=== PATIENT | male | born 1975 | race Caucasian/White ===

== ENCOUNTER → 2018-08-06 09:41 | Outpatient (CLI) | payer OTHER, SELFPAY ==
--- NOTE | 2018-08-06 09:51 | XR_ITS ---
EXAM: XR cervical spine 5V HISTORY: ITS.REASON: CERVICALGIA, NUMBNESS OF UPPER EXTREMITY ORDERING PHYSICIAN: Katy Maldonado APRN PATIENT AGE: 43 years COMPARISON: None FINDINGS: Normal alignment. No fracture or dislocation. No lytic or blastic change. No significant degenerative change. The disc spaces are preserved. No foraminal narrowing. No cervical ribs. No prevertebral soft tissue swelling IMPRESSION: Negative cervical spine
--- NOTE | 2018-08-06 09:51 | XR_ITS ---
EXAM: XR lumbar spine min 4V HISTORY: ITS.REASON: ACUTE RT SIDE LBP W/ SCIATICA ORDERING PHYSICIAN: Katy Maldonado APRN PATIENT AGE: 43 years COMPARISON: None FINDINGS: Normal alignment. No fracture or dislocation. No lytic or blastic change. There is mild degenerative disc disease at L1-L2. Minimal nature osteophyte formation is present at L4 and L5. IMPRESSION: Mild degenerative changes, no acute finding
== END ==
PROVIDERS: PCP Nurse Practitioner Family; Visit Provider Nurse Practitioner Family
DX: M54.41 Lumbago with sciatica, right side (principal); M54.2 Cervicalgia; R20.0 Anesthesia of skin
CPT/HCPCS: 72050; 72110

== ENCOUNTER → 2018-09-28 13:16 | Outpatient (POV) | payer OTHER, SELFPAY | PROVIDERS: Visit Provider Specialist | DX: R20.0 Anesthesia of skin (principal); R20.2 Paresthesia of skin | CPT/HCPCS: 95886; 95909 ==

== ENCOUNTER → 2019-08-12 08:32 | Outpatient (CLI) | payer OTHER, SELFPAY ==
--- NOTE | 2019-08-12 08:46 | US_ITS ---
PROCEDURE: US LIVER CLINICAL INDICATION: ELEVATED LIVER ENZYMES COMPARISON: No exams were available for comparison FINDINGS: PANCREAS: The pancreas is poorly delineated at the pancreatic tail region. Otherwise unremarkable. LIVER: No focal liver lesions demonstrated. Homogeneous echogenicity. No intrahepatic biliary ductal dilatation evident. There is appropriate direction of blood flow within a non dilated portal vein. There is slight increased echogenicity of the liver which could be due to mild fatty infiltration. RIGHT KIDNEY: Unremarkable. Normal size and echogenicity. No hydronephrosis GALLBLADDER: No gallstones, gallbladder wall thickening, pericholecystic fluid, or biliary dilatation. IMPRESSION: Mild fatty liver otherwise negative Dictated by: Felipe Smith MD 08/12/2019 13:26 Electronically signed by Felipe Smith MD in [place] 08/12/2019 13:26
== END ==
PROVIDERS: PCP Family Medicine; Visit Provider Nurse Practitioner Family
DX: R74.8 Abnormal levels of other serum enzymes (principal)
CPT/HCPCS: 76705

== ENCOUNTER 2020-08-13 13:50 | Emergency (ER) | payer OTHER, SELFPAY ==
[2020-08-13 13:51] VITALS: BP 141/98; PULSE 100; RESP 16; TEMP 36.8; O2SAT 99; BMI 31.5
[2020-08-13 14:15] VITALS: BP 137/88; PULSE 96; O2SAT 96
--- NOTE | 2020-08-13 14:31 | PC.NURSE ---
at bedside to suture
[2020-08-13 14:44] VITALS: BP 137/88; PULSE 93; O2SAT 97
--- NOTE | 2020-08-13 14:44 | HMH.EDWNDL ---
ED Disposition Clinical Impression: Laceration of left leg excluding thigh Qualifiers: Encounter type: initial encounter Qualified Code(s): S81.812A - Laceration without foreign body, left lower leg, initial encounter Disposition: Home, Self-Care Condition on Discharge: Good Instructions: DI for Laceration Repair Referrals: Cal Randolph MD [Primary Care Provider] - - Critical Care Critical Care Time: No Attestation: On 08/13/20, the high probability of a clinically significant, sudden or life threatening deterioration of the following system(s) required my full and direct attention, intervention and personal management. The time I documented below is in addition to time spent performing reported procedures but includes the following listed in this critical care notation. Medical Decision Making - Medical Records Medical records reviewed: Yes: I reviewed the patient's medical records. - Balwinder Inquiry Pt receiving controlled substance: No Vital Signs: 08/13/20 13:51 08/13/20 14:15 Temperature 98.3 F Temperature Source Oral Pulse Rate 96 H Pulse Rate [Right] 100 H Respiratory Rate 16 Blood Pressure 137/88 Blood Pressure [Right Arm] 141/98 H Blood Pressure Mean [Right Arm] 112 02 Sat by Pulse Oximetry 99 96 - Reevaluation(s) Time: 14:47 Reevaluation #1: Patient tolerated procedure well. Patient was given strict return precautions. Verbalized understanding. Medical Decision Narrative: 45-year-old male presented to the emergency department with a laceration of the left leg. Patient will require suture repair. Tetanus up-to-date. Wound/Laceration HPI - General Chief Complaint: Wound/Laceration Stated Complaint: ao 08/13/20 @ 1330 lac to Lt leg Time Seen by Provider: 08/13/20 13:55 Mode of Arrival: Family Vehicle Limitations: No Limitations Description of Symptoms (Recalled from ER Triage Doc. by RN): PT REPORTS HE TRIPPED INTO A METAL ANGLE WIRE, AND CAUSED A LACERATION TO HIS LEFT [place]. BLEEDING CONTROLLED PRIOR TO ARRIVAL. UPON ASSESSMENT, PT HAS DISTAL PEDAL PULSES AND CAP REFILL LESS THAN 2 SECONDS DISTAL TO INJURY. PT AMBULATORY IN ED TRIAGE. PT REPORTS TETANUS SHOT 3 MONTHS AGO. PT DENIES BEING ON ANTICOUGULANTS - History of Present Illness HPI narrative: This is a 45-year-old male presented to the emergency department with a laceration to his left lower leg. Patient states that he tripped and hit a angle wire. The patient has a clean laceration to the left lower extremity at the mid lower leg. There is no active bleeding at this time. Patient is up-to-date on tetanus immunization. Is complaining of some minimal pain. No others injuries were sustained. Patient denies any headache or change in vision. No focal weakness. No chest pain or shortness of breath and abdominal pain or vomiting. [facility] History - Hepatitis A Screen Drug use history?: No High risk sexual behaviors?: No History of sexually transmitted infection?: No Currently employed?: No Childcare worker?: No Do you have indoor plumbing?: Yes Do you have electricity?: Yes Attestation statement:: This patient has been screened for Hepatitis A risk factors. I have reviewed the patient's past medical history: Yes ROS Obtained: Yes All systems reviewed & no additional complaints - Constitutional Constitutional: Denies chills, Denies fever(s) - Cardiovascular Cardiovascular: Denies chest pain - Respiratory Respiratory: Denies dyspnea - Gastrointestinal Gastrointestingal: Denies: vomiting - Musculoskeletal Musculoskeletal: Denies joint pain, Reports other (laceration to left leg) - Neurologic Neurologic: Denies headache(s) Physical Exam - General General appearance: alert, in no apparent distress - Respiratory Respiratory exam: Present: normal lung sounds bilaterally. Absent: respiratory distress - Cardiovascular Cardiovascular exam: Present: regular rate. Absent: normal rhythm - Ab
[2020-08-13 15:02] VITALS: BP 137/88; PULSE 93; RESP 18; TEMP 36.8; O2SAT 97
== END 2020-08-13 15:05 | disposition home or self-care (01) ==
PROVIDERS: Emergency Provider Emergency Medicine; PCP Family Medicine
DX: S81.812A Laceration without foreign body, left lower leg, initial encounter (principal); W01.198A Fall on same level from slipping, tripping and stumbling with subsequent striking against other object, initial encounter; Y92.9 Unspecified place or not applicable
CPT/HCPCS: 12002; 99282

== ENCOUNTER → 2021-04-11 07:46 | Outpatient (CLI) | payer OTHER, SELFPAY ==
[2021-04-11 08:57] VITALS: BP 150/86; PULSE 90; RESP 16; O2SAT 97
[2021-04-11 09:12] VITALS: BP 134/83; PULSE 84; RESP 16; O2SAT 97
== END ==
PROVIDERS: PCP Family Medicine; Visit Provider Family Medicine
DX: U07.1 COVID-19 (principal); Z23 Encounter for immunization
CPT/HCPCS: 96365

== ENCOUNTER 2022-04-08 09:03 | Emergency (ER) | payer OTHER, SELFPAY ==
--- NOTE | 2022-04-08 09:58 | EXP.UTC ---
Discharge Plan Disposition Patient Disposition: Home, Self-Care Condition: Good Prescriptions Prescriptions: New azithromycin [Zithromax] 250 mg tablet 250 mg PO UD DOSE PK Qty: 6 0RF Rx Instructions: Take two (2) tablets today, then one (1) tablet days #2 thru #5 benzonatate [benzonatate] 100 mg capsule 100 mg PO TIDP PRN (Reason: Cough) Qty: 30 0RF methylprednisolone 4 mg Tablets,Dose Pack 4 mg PO DIRECTED Qty: 21 0RF Referrals Follow up/Referrals: Katy Maldonado APRN [Primary Care Provider] - See instructions Activity Restrictions/Add. Instructions Additional Instructions/Restrictions: Drink plenty of fluids. Take tylenol or ibuprofen for pain or fever. Take the medications as directed. Follow up with your regular doctor. GO TO THE ER FOR ANY WORSENING SYMPTOMS Clinical Impressions Clinical Impression: Sinusitis, Bronchitis, Acute viral syndrome Instructions Patient Instructions: DI for Sinusitis, DI for Acute Bronchitis Discharge ED Provider: Angel Farnsworth [facility] General Stated complaint: Bodyaches,fever Time Seen by Provider: 04/08/22 09:58 History of Present Illness Provider Complaint: He states that for the past 1 day he has had sinus congestion, body aches, chills, and fever. He has a productive cough. Related Data Previous Rx's Medication Instructions Recorded azithromycin 250 mg tablet 250 mg PO UD DOSE PK #6 tabs 04/08/22 (Zithromax) benzonatate 100 mg capsule 100 mg PO TIDP PRN Cough #30 caps 04/08/22 methylprednisolone 4 mg tablets in 4 mg PO DIRECTED #21 tabs 04/08/22 a dose pack Allergies Allergy/AdvReac Type Severity Reaction Status Date / Time No Known Allergies Allergy Verified 04/08/22 10:01 [facility] Disclaimer: The information contained in this section may have been updated after the patient was seen, as this information can be updated by other users. Social History Smoking Status: Never smoker alcohol intake: never current occupational status: employed Travel in the last 8 weeks: None ROS Obtained: Yes All systems reviewed & no additional complaints except as documented Constitutional Constitutional: Reports chills and Reports fever(s) Eyes Eyes: Denies eye discharge ENT Ears, Nose, Mouth, and Throat: Reports as per HPI Cardiovascular Cardiovascular: Denies chest pain Respiratory Respiratory: Denies chest congestion and Reports cough Gastrointestinal Gastrointestingal: Reports nausea; Denies abdominal pain, constipation, cramping, diarrhea or vomiting Musculoskeletal Musculoskeletal: Denies arthralgias Integumentary/Breasts Skin/Breast: Denies rash Neurologic Neurologic: Denies paresthesias Physical Exam General General appearance: alert and in no apparent distress Head Head exam: atraumatic, normocephalic and normal inspection Eye Eye exam: Present normal appearance, PERRL and EOMI ENT ENT exam: Present normal exam, normal oropharynx, mucous membranes moist, TM's normal bilaterally and normal external ear exam Neck Neck exam: Present normal inspection, full ROM and trachea midline; Absent meningismus or lymphadenopathy Chest Chest inspection: Present normal inspection and symmetric chest wall rise; Absent tenderness Respiratory Respiratory exam: Present normal lung sounds bilaterally; Absent respiratory distress Cardiovascular Cardiovascular exam: Present regular rate and normal rhythm; Absent JVD Abdominal Exam Abdominal exam: Present soft and normal bowel sounds; Absent distention, tenderness or guarding Extremities Exam Extremities exam: Present normal inspection, full ROM and normal capillary refill; Absent calf tenderness Back Exam Back exam: Present normal inspection; Absent tenderness Neurological Exam Neurological exam: Present alert and oriented X3 Psychiatric Psychiatric exam: Present normal affect and normal mood Skin Skin exam: Pres
[2022-04-08 09:59] VITALS: BP 148/89; PULSE 107; RESP 16; TEMP 36.7; O2SAT 98; BMI 32.1
[2022-04-08 10:06] LABS: UTC Influenza A Antigen Negative (Negative); UTC Influenza B Antigen Negative (Negative)
[2022-04-08 10:32] VITALS: BP 148/89; PULSE 107; RESP 16; TEMP 36.7
[2022-04-08 10:42] LABS: Adenovirus,PCR Not Detected (NotDetected); Bordetella Pertussis Not Detected (NotDetected); Chlamydophila Pneumoniae, PCR Not Detected (NotDetected); Coronavirus 229E Not Detected (NotDetected); Coronavirus NL63 Not Detected (NotDetected); Coronavirus OC43 Not Detected (NotDetected); Coronovirus HKU1,PCR Not Detected (NotDetected); Human Metapneumovirus Not Detected (NotDetected); Influenza A, PCR Not Detected (NotDetected); Influenza AH1, 2009 Not Detected (NotDetected); Influenza AH1, PCR Not Detected (NotDetected); Influenza AH3,PCR Not Detected (NotDetected); Influenza B, PCR Not Detected (NotDetected); Mycoplasma Pneumoniae, PCR Not Detected (NotDetected); Parainfluenza 1, PCR Not Detected (NotDetected); Parainfluenza 2, PCR Not Detected (NotDetected); Parainfluenza 3, PCR Not Detected (NotDetected); Parainfluenza 4, PCR Not Detected (NotDetected); Respiratory Syncytial Virus Not Detected (NotDetected); Rhinovirus/Enterovirus Not Detected (NotDetected)
[2022-04-08 12:25] LABS: Coronavirus 19, PCR Detected (NotDetected)
== END 2022-04-08 10:33 | disposition home or self-care (01) ==
PROVIDERS: Emergency Provider Nurse Practitioner Family; PCP Nurse Practitioner Family
DX: J40 Bronchitis, not specified as acute or chronic (principal); J32.9 Chronic sinusitis, unspecified; B34.9 Viral infection, unspecified
CPT/HCPCS: 87581; 87632; 87798; 87804; 99212; C9803; G0463; U0003; U0005

== ENCOUNTER → 2023-02-13 12:40 | Outpatient (CLI) | payer OTHER, SELFPAY ==
--- NOTE | 2023-02-13 12:41 | US_ITS ---
FINAL REPORT CLINICAL HISTORY: hernia COMPARISON: None FINDINGS: Sonographic images were obtained of the soft tissues of the left inguinal region. There are several borderline size left inguinal lymph nodes which are likely reactive. There is a left inguinal hernia containing bowel. IMPRESSION: Left inguinal hernia containing bowel. Several borderline size left inguinal lymph nodes, likely reactive. Reviewed, Interpreted and Dictated by Jhonatan Moore III, MD Transcribed by Trinidad Mckeon Authenticated and [facility]
--- NOTE | 2023-02-13 13:15 | US_ITS ---
FINAL REPORT CLINICAL HISTORY: INGUINAL HERNIA COMPARISON: None FINDINGS: Sonographic images were obtained of the soft tissues of the right inguinal region. There are several borderline size right inguinal lymph nodes which are likely reactive. There is a right inguinal hernia containing bowel. IMPRESSION: Right inguinal hernia containing bowel. Several borderline size right inguinal lymph nodes, likely reactive. Reviewed, Interpreted and Dictated by Jhonatan Moore III, MD Transcribed by Trinidad Mckeon Authenticated and [facility]
== END ==
PROVIDERS: PCP Nurse Practitioner Family; Visit Provider Nurse Practitioner Family
DX: R10.31 Right lower quadrant pain (principal); K40.90 Unilateral inguinal hernia, without obstruction or gangrene, not specified as recurrent
CPT/HCPCS: 76882

== ENCOUNTER → 2023-03-25 11:34 | Outpatient (CLI) | payer OTHER, SELFPAY ==
[2023-03-25 11:46] LABS: Microscopic, Urine URINE MICROSCOPIC (MICROSCOPIC)
--- NOTE | 2023-03-25 11:46 | ECG_ITS ---
APPROVED REPORT Exam: Resting ECG HR:59 bpm ECG Measurements Heart Rate 59 AXES MT 146 P 23 QRSd 84 QRS 51 QT 383 T 31 QTc 382 Conclusion SINUS BRADYCARDIA BORDERLINE ECG UNCONFIRMED REPORT Electronically signed by : Cal Bernal MD 03/25/2023 16:51:16
[2023-03-25 12:07] LABS: Basophils % 0.5 % (0.1-2.0); Eosinophils # 0.2 K/mm3 (0.0-0.4); Eosinophils % 2.5 % (0.1-12.0); Hematocrit 48.7 % (42.0-52.0); Hemoglobin 16.8 g/dL (14.1-18.0); Lymphocytes # 2.2 K/mm3 (0.7-4.5); Lymphocytes % 36.8 % (10-50); Mean Corpuscular HGB Conc 34.5 g/dL (31.8-35.4); Mean Corpuscular Hemoglobin 32.6 pg (27.0-31.2); Mean Corpuscular Volume 94.3 fl (80-94); Mean Platelet Volume 7.9 fl (7.4-10.4); Monocytes # 0.4 K/mm3 (0.1-1.0); Monocytes % 6.3 % (1.7-9.3); Neutrophils # 3.2 K/mm3 (1.8-7.8); Neutrophils % 53.9 % (37.0-80.0); Platelet Count 295 K/mm3 (142-424); Red Blood Count 5.16 M/mm3 (4.60-6.20); Red Cell Distribution Width 13.4 % (11.5-17.5); White Blood Count 5.9 K/mm3 (4.8-10.8)
[2023-03-25 12:08] LABS: Appearance,Urine CLEAR (Clear); Bilirubin,Urine Negative (Negative); Blood, Urine Negative (Negative); Color,Urine YELLOW (Yellow); Glucose,Urine (UA) Negative (Negative); Ketones,Urine Negative (Negative); Leukocyte Esterase,Urine Negative (Negative); Nitrate,Urine Negative (Negative); Protein,Urine Negative (Negative); Specific Gravity, Urine 1.025 (1.005-1.030); Urobilinogen,Urine 0.2 EU/dl (0.2)
[2023-03-25 12:21] LABS: Squamous Epithelial Cell,Urine Occasional #/hpf (0-5)
[2023-03-25 12:39] LABS: Chloride 105 mmol/L (98-107); Potassium 4.5 mmoL/L (3.5-5.1); Sodium 139 mmol/L (136-145)
[2023-03-25 12:42] LABS: Blood Urea Nitrogen 22 mg/dl (9-20); Estimated Glomerular Filt Rate 80 ml/min (>60); GFR (African American) 97 ML/MIN (>60)
[2023-03-25 12:43] LABS: Anion Gap 9.5 mEq/L (5-15); Carbon Dioxide 29 mmol/L (22.0-30.0); Glucose 94 mg/dl (74-100)
== END ==
PROVIDERS: PCP Nurse Practitioner Family; Visit Provider Surgery
DX: Z01.818 Encounter for other preprocedural examination (principal); K40.90 Unilateral inguinal hernia, without obstruction or gangrene, not specified as recurrent
CPT/HCPCS: 36415; 80048; 81001; 85025; 93005

== ENCOUNTER 2023-04-03 06:07 | Day surgery (SDC) | payer OTHER, SELFPAY ==
[2023-03-31 13:32] VITALS: BMI 30.7
[2023-04-03] VITALS (11 sets, daily range): BP systolic 110–135; BP diastolic 61–76; PULSE 68–83; RESP 16–18; TEMP 36.2–36.7; O2SAT 91–98
[2023-04-03] MEDS: LACTATED RINGERS 1000ML 1,000 ML 100 ML IV (06:35)
[2023-04-03] MEDS: CEFAZOLIN SODIUM 2 GM in 0.9 % SODIUM CHLORIDE 100 ML IV (07:25)
[2023-04-03] MEDS: LIDOCAINE 1% 30ML PF VIAL 30 ML (07:27)
--- NOTE | 2023-04-03 07:32 | P.PNANES_ITS ---
[facility] Disclaimer: The information contained in this section may have been updated after the patient was seen, as this information can be updated by other users. Medical History Acute viral syndrome Arthritis Bronchitis Fatty liver Laceration of left leg excluding thigh Muscle spasm Sinusitis Surgical History H/O vasectomy S/P scrotal varicocelectomy Family History Father Cancer Mother CHF (congestive heart failure) Other Family history of diabetes mellitus type I Family history of diabetes mellitus type II Social History Smoking Status: Former smoker years smoked: 30 alcohol intake: current substance use type: denies use current occupational status: employed Travel in the last 8 weeks: None [facility] Anesthesia Checklist Patient Identification Patient Identification: Arm Band Structural Data Admitted From: Home Planned Operative Procedure/s: Left Open Inguinal Hernia Repair Consent for Planned Operative Procedure(s) Verified: Yes Verified Documents: Surgical Consent and History and Physical NPO Status Verified Time NPO: 00:00 Additional verifications Anesthesia Reactions: No Hx Blood Transfusions: No Blood Transfusion Reaction: No Airway Assessment Mallampati Score:: Class II C-Spine Mobility Assessed: Yes TMJ Mobility Assessed: Yes Dentition: Good Dentition Neurological Assessment Level of Consciousness: Awake and Alert Anesthesia Plan Anesthesia Risk discussed: Yes Anesthesia Plan: Verified ASA Class: II Anesthesia Type: General
--- NOTE | 2023-04-03 08:58 | EXP.OP.NOTE ---
Date of procedure: 04/03/23 Pre-op Diagnosis:: Right inguinal hernia Post-op Diagnosis:: Same Procedure performed:: Open right inguinal hernia Surgeon:: Lewis Szymanski MD TRANSFER CAR OPERATOR DRIER:: Shaun Crespo Anesthesia: CHERY Estimated blood loss (mL): 15 Operative findings:: Complex indirect defect Fairly severe soft tissue stranding throughout canal Operative note:: After informed consent was obtained the patient was taken to the operating room and placed in the supine position. General anesthesia was induced and his abdomen was prepped and draped in a sterile fashion. After infiltration with local anesthetic an oblique right groin incision was made. Electrocautery was utilized to transect through Gary's fascia to the level of the external aponeurosis. The external aponeurosis was sharply opened to the level of the external ring. The contents of the canal were carefully elevated. Severe soft tissue stranding noted throughout. A fairly large complex indirect defect was encountered. A thin-wall hernia sac was dissected free from surrounding tissue. An extra-large PerFix plug was secured in position with interrupted Ethibond. The PerFix overlay was then secured to the shelving edge inferiorly and fascial margin superiorly with interrupted Ethibond. The external aponeurosis was reapproximated with running Vicryl suture. Gary's fascia was reapproximated in a similar manner. Skin was then closed with running 3-0 Monocryl STRATAFIX. Dressings were applied and the patient was transferred to recovery in stable condition. Condition: stable Disposition: PACU Specimens:: none Complications:: No immediate
--- NOTE | 2023-04-03 09:06 | P.PNANES_ITS ---
[facility] Anesthesia Record Part I Anesthesia Record I Intake, IV Amount: 1,400 Hydration: Adequate Estimated blood loss (mL): 10 Urine output (mL): 100 Blood Products used (#): none Blood Pressure: 135/75 SaO2: 91 Pulse Rate: 83 Airway Patency: Patent Respiratory Rate: 16 Temperature: 98 F Patient is:: Drowsy and Stable Stable to PACU at:: 09:00
--- NOTE | 2023-04-03 09:33 | SUR.PHASEI ---
0930- detailed report given to danis roy in post op 0931- pt left in stable condition with danis fernandez in post op. VSS, dressings cdi
--- NOTE | 2023-04-03 13:53 | EXP.ANES.II ---
[facility] Anesthesia Record Part II Anesthesia Record Part II Discharge Time: 09:30 Destination: Surgical Day Care (OP Surgery) PACU nurse assessment reviewed?: Yes Patient Condition:: Good Anesthesia Complications:: None Swallowing reflex intact?: Yes Airway Patency: Patent Cyanosis?: No Blood Pressure: 127/76 SaO2: 95 Respiratory Rate: 16 Pulse Rate: 80 Temperature: 97.4 F Mental Status: Alert & Oriented Pain level:: 0 Nausea and/or vomitting:: None Intake, IV Amount: 0 Hydration: Adequate
== END 2023-04-03 10:07 | disposition home or self-care (01) ==
PROVIDERS: PCP Nurse Practitioner Family; Visit Provider Surgery
PROC: (CPT 49505; principal; 2023-04-03 07:30)
DX: K40.90 Unilateral inguinal hernia, without obstruction or gangrene, not specified as recurrent (principal)
CPT/HCPCS: 49505; 96374; J2405

== ENCOUNTER 2023-10-14 10:32 | Outpatient (CLI) | payer OTHER, SELFPAY ==
--- NOTE | 2023-10-14 10:35 | XR_ITS ---
FINAL REPORT CLINICAL HISTORY: low back pain FINDINGS: LUMBAR SPINE Three views demonstrate no acute fracture. There are mild degenerative changes with osteophytes. There is no malalignment. IMPRESSION: No acute process. Reviewed, Interpreted and Dictated by Jhonatan Moore III, MD Transcribed by Michelle Barrera Authenticated and [facility]
[2023-10-14 13:18] LABS: Basophils % 0.6 % (0.1-2.0); Eosinophils # 0.1 K/mm3 (0.0-0.4); Eosinophils % 2.1 % (0.1-12.0); Hematocrit 49.1 % (42.0-52.0); Hemoglobin 16.1 g/dL (14.1-18.0); Lymphocytes # 1.6 K/mm3 (0.7-4.5); Lymphocytes % 23.8 % (10-50); Mean Corpuscular HGB Conc 32.8 g/dL (31.8-35.4); Mean Corpuscular Hemoglobin 32.1 pg (27.0-31.2); Mean Corpuscular Volume 97.8 fl (80-94); Monocytes # 0.4 K/mm3 (0.1-1.0); Monocytes % 6.2 % (1.7-9.3); Neutrophils # 4.6 K/mm3 (1.8-7.8); Neutrophils % 67.4 % (37.0-80.0); Platelet Count 298 K/mm3 (142-424); Red Blood Count 5.02 M/mm3 (4.60-6.20); Red Cell Distribution Width 14.1 % (11.5-17.5); White Blood Count 6.8 K/mm3 (4.8-10.8)
[2023-10-14 13:39] LABS: Alanine Aminotransferase 74 U/L (12-78); Albumin Level 4.8 g/dl (3.5-5.0); Albumin/Globulin Ratio 1.9 (1.1-1.8); Alkaline Phosphatase 84 U/L (38-126); Aspartate Amino Transferase 48 U/L (17-59); Bilirubin,Total 1.7 mg/dl (0.2-1.3); Blood Urea Nitrogen 24 mg/dl (9-20); Calcium 9.9 mg/dl (8.4-10.2); Carbon Dioxide 30 mmol/L (22.0-30.0); Chloride 107 mmol/L (98-107); Estimated Glomerular Filt Rate 90 ml/min (>60); GFR (African American) 109 ML/MIN (>60); Globulin 2.5 g/dL (1.3-3.2); Glucose 77 mg/dl (74-100); Sodium 139 mmol/L (136-145); Total Protein,Serum 7.3 g/dl (6.3-8.2)
[2023-10-14 14:08] LABS: Prostate Specific Ag Screen 0.5 ng/ml (0.0-4.0)
[2023-10-14 15:04] LABS: Anion Gap 7.2 mEq/L (5-15); Potassium 5.2 mmoL/L (3.5-5.1)
== END 2023-10-14 23:59 | disposition home or self-care (01) ==
LOC: LAB.DROPOF 10:33
PROVIDERS: PCP Nurse Practitioner Family; Visit Provider Nurse Practitioner Family
DX: M54.50 Low back pain, unspecified (principal); Z12.5 Encounter for screening for malignant neoplasm of prostate
CPT/HCPCS: 72100; 80053; 85025; G0103

== ENCOUNTER 2023-11-14 11:24 | Outpatient (CLI) | payer OTHER, SELFPAY ==
[2023-11-14 11:31] VITALS: BMI 29.2
--- NOTE | 2023-11-14 11:35 | PC.NURSE ---
1135-collected labs via venipuncture stick with butterfly needle for possible therapeutic phlebotomy if hgb>12 and ferritin > 150
[2023-11-14 11:54] LABS: Hematocrit 43.9 % (42.0-52.0); Hemoglobin 14.7 g/dL (14.1-18.0)
[2023-11-14 12:32] LABS: Ferritin 362 ng/ml (17.9-464)
[2023-11-14 12:42] VITALS: BP 132/82; PULSE 74; RESP 18; O2SAT 96
[2023-11-14 13:00] VITALS: BP 144/86; PULSE 78; RESP 18; O2SAT 96
== END 2023-11-14 13:00 | disposition home or self-care (01) ==
LOC: INF 11:25
PROVIDERS: PCP Nurse Practitioner Family
DX: E83.110 Hereditary hemochromatosis (principal)
CPT/HCPCS: 36415; 82728; 85014; 85018; 99195

== ENCOUNTER 2023-11-14 16:00 | Outpatient (RCR) | payer OTHER, SELFPAY ==
--- NOTE | 2023-10-27 17:04 | HMH.PTOPEV ---
PT Outpatient Evaluation Rehab PT Outpatient Evaluation Start: 10/27/23 15:14 Freq: Status: Active Protocol: Document 10/27/23 16:06 GABINO (Rec: 10/27/23 17:04 GABINO [id number]) E-signed By Melvin Fox, PT Outpatient Therapy Subjective History Subjective History Patient Alicja Ewing is a 48 year old male presenting today at PT with the chief compliant of LBP, his back pain comes and goes depending upon activities and the day. Patient recently had imaging done on () which was consistent with no fx but there are mild degenerative changes with osteophytes noted . His job varies from time to time and can be demanding on his body. His pain is normally worse in the morning as he experiences more stiffness. He currently rates his pain at a 0/10, but at worse can reach to a 8/10. Patient does stretch on and off which he said tends to help reduce the stiffness. New diagnosis of cancer in past 12 No months? Chief Complaint Pain,Stiff Symptom Type Ache Symptoms Relieved By Prescription Meds Symptoms Aggravated By Standing,Walking Prior Functional Limitations None Current Functional Limitations Recreation Activity Symptom Description Activity Dependent Level of pain today (0-10) 0 Pain scale - at its best (0-10) 0 Pain scale - at its worst (0-10) 8 Lumbopelvic Eval Posture Thoracic Spine Posture Standing Position Neutral Lumbar Spine Posture Standing Position Neutral Assistive device Assistive Devices None / NA Palapation tenderness left thoracic spinal tenderness No lumbar spinal tenderness Yes paraspinal tenderness Yes buttock tenderness No Range of Motion Lumbar Spine Active Flexion Range of 60 Motion (degrees) Lumbar Spine Active Extension Range of 33 Motion (degrees) Left Lumbar Spine Lateral Flexion Active 35 Range of Motion (degrees) Right Lumbar Spine Lateral Flexion 30 Active Range of Motion (degrees) Lumbar Spine ROM Limitations Soft Tissue Tightness,Pain Manual Muscle Test Bilateral Knee Extension Strength Grade 5 Normal Knee Flexion Strength Grade 5 Normal Hip Flexion Strength Grade 5 Normal Ankle Dorsiflexion Strength Grade 5 Normal Gastronemius/Soleus Strength Grade 5 Normal Special Tests Hip Gurpreet (ALEJANDRO) Test Negative Left,Negative Right Hip Piriformis Test Negative Left,Negative Right Unilateral Straight Leg Raise (Lasegue) Negative Left,Negative Right Test Oswestry Index Section 1 Pain Intensity The pain comes and goes and is moderate Section 2 Personal Care (Washing,Dresing) change my way of washing or dressing in order to avoid pain Section 3 Lifting I can lift heavy weights without extra pain Section 4 Walking I have some pain when walking but it does not increase with distance Section 5 Sitting I can sit in any chair for as long as I like Section 6 Standing I cannot stand more than 1 hour without increasing pain Section 7 Sleeping Because of my pain, my normal night's sleep is less than 6 hours sleep Section 8 Social Life My social life is normal and gives me no extra pain Section 9 Traveling I get some pain when traveling , but none of my usual forms of travel m Section 10 Changing Degreee of Pain My pain is gradually getting worse Score and Risk Level Oswestry Sc 12 Oswestry Risk Level Mild Disability Outpatient Therapy Assessment Impairments Problems/Impairmments Palpation Tenderness,Impaired Walking,Impaired Standing, Impaired Recreational Activities Prognosis Rehab Potential Good Comment Patient is appropriate for skilled PT to address his muscle tightness to promote more appropriate body mechanics to enhance QOL. Short Term Goals Number of Weeks 4 Decreased Palpation Tenderness Yes: decrease pinpoint tenderness L paraspinal Increase Ability to Stand Yes: for 30 min with little to no pain in the lower back Improve Oswestry Score Yes: decrease score from 12 to 6 Decrease Subjective C/O Pain Yes: decrease pain at worst from 8/10 to 6/10 Patient to be Ind w/ HEP Yes Business Systems Technician Goals Number of Weeks 6 Increase Ability to Walk Yes: gradually through walking distances greater than 1 mile with 2/10 pain Improve Oswestry Score Yes: Score <4 Decrease Subjective C/O Pain Yes: decrease pain from 6/10 to 1/10 with recreational activities Improve Self Care/Self Management Yes: through getting an adequate amount of sleep with reduction of AM pain Patient to be Ind w/ Advanced HEP Yes Outpatient Therapy Plan of Care Treatment Plan May Include Therapeutic Exercise Including Home Yes Exercise Program Manual Therapy Techniques Yes Therapeutic Activities to Return to Yes Previous Functional/Work Level ADL/Self Care Education Yes Mechanical Traction Yes Dry Needling Yes Thermal Modalities Yes Electrical Stimulation Yes Ultrasound/Phonophoresis Yes Eval/Re-Eval Yes Frequency Times per week 1-2 Duration Number of Weeks 6 Addendums This patient is a candidate for social No or vocational rehab? Patient/Guardian verbally acknowledges Yes understanding of treatment program and consents to further treatment? Patient/Guardian verbally acknowledges Yes understanding of diagnosis, prognosis and goals for treatment? Eval Complexity PT Charges 05553 - High Complexity Shoulder/Elbow Eval Shoulder Objective Measurements Elbow Objective Measurements PHYSICIAN CERTIFICATION: I certify the specified therapy services for Tad Chaoton II are required, authorized, and reviewed every 30 days.
== END 2023-11-14 16:05 | disposition home or self-care (01) ==
LOC: PT 16:00
PROVIDERS: Visit Provider Nurse Practitioner Family
DX: M54.50 Low back pain, unspecified (principal)
CPT/HCPCS: 97163

== ENCOUNTER 2023-11-28 12:15 | Outpatient (CLI) | payer OTHER, SELFPAY ==
[2023-11-28 12:17] VITALS: BMI 29.2
--- NOTE | 2023-11-28 12:23 | PC.NURSE ---
1223-collected labs via venipuncture stick in left ac with butterfly needle; pt to wait on labs for possible therapeutic phlebotomy if ferritin>150
[2023-11-28 12:29] LABS: Hematocrit 40.5 % (42.0-52.0); Hemoglobin 13.3 g/dL (14.1-18.0)
[2023-11-28 13:20] LABS: Ferritin 260 ng/ml (17.9-464)
[2023-11-28 13:55] VITALS: BP 144/82; PULSE 81; RESP 18; O2SAT 97
[2023-11-28 14:12] VITALS: BP 147/82; PULSE 90; RESP 18; O2SAT 98
== END 2023-11-28 14:12 | disposition home or self-care (01) ==
LOC: INF 12:16
DX: Z12.5 Encounter for screening for malignant neoplasm of prostate (principal)
CPT/HCPCS: 36415; 82728; 85014; 85018; 99195

== ENCOUNTER 2023-12-12 10:37 | Outpatient (CLI) | payer OTHER, SELFPAY ==
[2023-12-12 10:40] VITALS: BMI 29.2
--- NOTE | 2023-12-12 10:43 | PC.NURSE ---
1034-collected labs via venipuncture stick in left ac with butterfly needle;will call pt with results for therapeutic phlebotomy if ferritin >150 and hgb >12
[2023-12-12 10:56] LABS: Hematocrit 42.8 % (42.0-52.0); Hemoglobin 14.1 g/dL (14.1-18.0)
[2023-12-12 11:42] LABS: Ferritin 216 ng/ml (17.9-464)
[2023-12-12 13:59] VITALS: BP 164/102; PULSE 78; RESP 18; O2SAT 98
[2023-12-12 14:22] VITALS: BP 133/81; PULSE 74; RESP 18; O2SAT 98
== END 2023-12-12 14:22 | disposition home or self-care (01) ==
LOC: INF 10:38
PROVIDERS: PCP Nurse Practitioner Family
DX: E83.111 Hemochromatosis due to repeated red blood cell transfusions (principal)
CPT/HCPCS: 36415; 82728; 85014; 85018; 99195

== ENCOUNTER 2023-12-26 13:45 | Outpatient (CLI) | payer OTHER, SELFPAY ==
[2023-12-26 13:49] VITALS: BMI 29.2
--- NOTE | 2023-12-26 13:50 | PC.NURSE ---
danis griffin collected labs via venipuncture stick in left ac with butterfly needle;pt to wait on results for possible therapeutic phlebotomy if ferritin >150 and hgb>12
[2023-12-26 14:02] LABS: Hematocrit 42.8 % (42.0-52.0); Hemoglobin 14.1 g/dL (14.1-18.0)
[2023-12-26 14:43] LABS: Ferritin 229 ng/ml (17.9-464)
[2023-12-26 15:13] VITALS: BP 144/88; PULSE 81; RESP 18; O2SAT 97
[2023-12-26 15:30] VITALS: BP 137/83; PULSE 91; RESP 18; O2SAT 97
== END 2023-12-26 23:59 | disposition home or self-care (01) ==
LOC: INF 13:46
PROVIDERS: PCP Nurse Practitioner Family; Visit Provider Physician Assistant
DX: E83.110 Hereditary hemochromatosis (principal)
CPT/HCPCS: 36415; 82728; 85014; 85018; 99195

== ENCOUNTER 2024-01-09 12:13 | Outpatient (CLI) | payer OTHER, SELFPAY ==
[2024-01-09 12:30] VITALS: BMI 29.2
[2024-01-09 12:43] LABS: Hematocrit 45.5 % (42.0-52.0)
--- NOTE | 2024-01-09 13:09 | PC.NURSE ---
01/09/24 1230 Pt here to have labs drawn and possible phlebotomy. Venipuncture performed to pt's lt ac x 1 stick per butterfly access needle, blood drawn. Needle withdrawn and site secured with 2x2 gauze and coban. Will await results of labs to determine of phlebotomy is needed. Pt leaving dept and will await call from staff if phlebotomy is needed. Pt agreed to return at that time.
[2024-01-09 13:27] LABS: Ferritin 152 ng/ml (17.9-464)
== END 2024-01-09 14:24 | disposition home or self-care (01) ==
PROVIDERS: PCP Nurse Practitioner Family; Visit Provider Physician Assistant
DX: E83.110 Hereditary hemochromatosis (principal)
CPT/HCPCS: 36415; 82728; 85014; 85018

== ENCOUNTER 2024-01-23 11:31 | Outpatient (CLI) | payer OTHER, SELFPAY ==
[2024-01-23 11:37] VITALS: BMI 31.4
--- NOTE | 2024-01-23 11:38 | PC.NURSE ---
1138danis aguillon collected labs via venipuncture stick in left ac with butterfly needle;pt to wait on results for possible phlebotomy if ferritin >150.
[2024-01-23 11:51] LABS: Hematocrit 42.1 % (42.0-52.0); Hemoglobin 14.7 g/dL (14.1-18.0)
[2024-01-23 12:40] LABS: Ferritin 110 ng/ml (17.9-464)
--- NOTE | 2024-01-23 12:56 | PC.NURSE ---
1256-pt d/c home no therapetuic phlebotomy for ferritin 110
== END 2024-01-23 12:56 | disposition home or self-care (01) ==
LOC: INF 11:32
PROVIDERS: PCP Nurse Practitioner Family
DX: E83.110 Hereditary hemochromatosis (principal)
CPT/HCPCS: 36415; 82728; 85014; 85018

== ENCOUNTER 2024-02-06 12:06 | Outpatient (CLI) | payer OTHER, SELFPAY ==
[2024-02-06 12:14] VITALS: BMI 31.4
[2024-02-06 12:30] LABS: Hematocrit 45.5 % (42.0-52.0); Hemoglobin 15.5 g/dL (14.1-18.0)
[2024-02-06 13:13] LABS: Ferritin 120 ng/ml (17.9-464)
--- NOTE | 2024-02-06 13:44 | PC.NURSE ---
1220-BLOOD DRAWN FROM RIGHT AC USING BUTTERFLY NEEDLE TO CHECK H/H AND FERRITIN AT THIS TIME. 1335-HGB 15.5, FERRITIN 120. NO THERAPEUTIC PHLEBOTOMY INDICATED. NOTIFIED PT. ALSO TOLD THAT IN 2 WEEKS WHEN HE WOULD NORMALLY RETURN FOR LABS, HIS ORDER WOULD BE . HE AGREED TO NOTIFY DR OFFICE TO SEE HOW THEY WANT HIM TO PROCEED AND LET US KNOW.
== END 2024-02-06 12:25 | disposition home or self-care (01) ==
PROVIDERS: PCP Nurse Practitioner Family; Visit Provider Physician Assistant
DX: E83.110 Hereditary hemochromatosis (principal)
CPT/HCPCS: 36415; 82728; 85014; 85018

== ENCOUNTER 2024-03-05 11:27 | Outpatient (CLI) | payer OTHER, SELFPAY ==
--- NOTE | 2024-03-05 11:50 | PC.NURSE ---
1150-a.danis reed collected labs via venipuncture stick in right ac with butterfly needle.
[2024-03-05 12:41] VITALS: BMI 31.4
[2024-03-05 12:47] LABS: Hematocrit 43.8 % (42.0-52.0); Hemoglobin 15.1 g/dL (14.1-18.0)
[2024-03-05 13:29] LABS: Ferritin 143 ng/ml (17.9-464)
--- NOTE | 2024-03-05 13:40 | PC.NURSE ---
1340-pt doesn't need therapeutic phlebotomy ferritin is 143.
== END 2024-03-05 13:40 | disposition home or self-care (01) ==
LOC: INF 11:31
PROVIDERS: PCP Nurse Practitioner Family; Visit Provider Physician Assistant
DX: H66.92 Otitis media, unspecified, left ear (principal)
CPT/HCPCS: 36415; 82728; 85014; 85018

== ENCOUNTER 2024-04-02 11:03 | Outpatient (CLI) | payer OTHER, SELFPAY ==
[2024-04-02 11:06] VITALS: BMI 31.4
[2024-04-02 11:19] LABS: Hematocrit 43.2 % (42.0-52.0); Hemoglobin 14.9 g/dL (14.1-18.0)
[2024-04-02 12:01] LABS: Ferritin 178 ng/ml (17.9-464)
[2024-04-02 13:25] VITALS: BP 143/80; PULSE 79; RESP 16
== END 2024-04-02 13:25 | disposition home or self-care (01) ==
LOC: INF 11:04
PROVIDERS: PCP Nurse Practitioner Family; Visit Provider Physician Assistant
DX: Z12.5 Encounter for screening for malignant neoplasm of prostate (principal)
CPT/HCPCS: 36415; 82728; 85014; 85018; 99195

== ENCOUNTER 2024-04-16 16:03 | Outpatient (CLI) | payer OTHER, SELFPAY ==
[2024-04-16 16:46] LABS: Coronavirus 19, PCR Not Detected (NotDetected); Human Rhinovirus Not Detected (NotDetected); Influenza A, PCR Not Detected (NotDetected); Influenza B, PCR Not Detected (NotDetected)
[2024-04-17 04:38] LABS: Respiratory Syncytial Virus Detected (NotDetected)
== END 2024-04-16 23:59 | disposition home or self-care (01) ==
LOC: LAB.DROPOF 04-17 09:34
PROVIDERS: PCP Internal Medicine; Visit Provider Internal Medicine
DX: R53.83 Other fatigue (principal)
CPT/HCPCS: 87631

== ENCOUNTER 2024-04-23 14:04 | Emergency (ER) | payer OTHER, SELFPAY ==
[2024-04-23 14:06] VITALS: BP 155/100; PULSE 84; RESP 18; TEMP 37.1; O2SAT 96; BMI 30.9
--- NOTE | 2024-04-23 14:13 | ED_ITS ---
Discharge Plan Disposition Patient Disposition: Home, Self-Care Condition: Good Prescriptions Prescriptions: New amoxicillin-pot clavulanate 875-125 mg tablet 1 tab PO BID Qty: 20 0RF No Action pseudoephedrine HCl 30 mg tablet 30 mg PO Q6H PRN (Reason: nasal congestion) Qty: 30 0RF Rx Instructions: Start with one tablet, may use two at at time if one does not do enough. cyclobenzaprine 10 mg tablet 10 mg PO HS PRN (Reason: muscle spasm) 30 Days Qty: 30 11RF sertraline 50 mg tablet See Rx Instructions .ROUTE .COMPLEX Qty: 30 11RF Dose Instruction: TAKE ONE TABLET BY MOUTH EVERY DAY Rx Instructions: TAKE ONE TABLET BY MOUTH EVERY DAY diclofenac sodium 75 mg tablet,delayed release (DR/EC) See Rx Instructions .ROUTE .COMPLEX Qty: 60 11RF Dose Instruction: TAKE ONE TABLET BY MOUTH TWICE DAILY Rx Instructions: TAKE ONE TABLET BY MOUTH TWICE DAILY Referrals Follow up/Referrals: Stephen Mercado DO [Primary Care Provider] - See instructions Activity Restrictions/Add. Instructions Additional Instructions/Restrictions: As we discussed please call and make an appointment with a dentist to soon as possible for evaluation. I have sent a prescription into your pharmacy. Please take till it is all gone. If your symptoms worsen change or do not improve follow-up with your PCP or return to the ER as needed. Clinical Impressions Clinical Impression: Cellulitis of face, Dental caries Instructions Patient Instructions: DI for Dental Pain Print Language Print Language: Chinese Discharge ED Provider: Spike Nguyen General Adult HPI <CORNEL Maguire - Last Filed: 04/23/24 21:05> General Chief complaint: Dental/Oral Stated complaint: sent by sandra Maldonado-Pain in R side of face Time Seen by Provider: 04/23/24 14:13 History of Present Illness HPI narrative: Patient presents for right sided facial pain and swelling. Patient states he was diagnosed with RSV around 3 days ago. He has since began having pain and swelling primarily in the right anterior gumline that is spread up the right side of his face. He denies any fever chills hemoptysis hematochezia melena bite abnormalities difficulty eating or drinking. He has known dental caries but has not been evaluated for an abscess. He saw his PCP today who sent him to the ER for evaluation. Related Data Previous Rx's ?Medication ?Instructions ?Recorded cyclobenzaprine 10 mg tablet 10 mg PO HS PRN muscle spasm 30 12/20/22 days #30 tabs diclofenac sodium 75 mg See Rx Instructions .Route 01/05/24 tablet,delayed release .COMPLEX #60 tabs sertraline 50 mg tablet See Rx Instructions .Route 01/05/24 .COMPLEX #30 tabs pseudoephedrine HCl 30 mg tablet 30 mg PO Q6H PRN nasal congestion 04/16/24 #30 tabs amoxicillin 875 mg-potassium 1 tab PO BID #20 tabs 04/23/24 clavulanate 125 mg tablet Allergies Allergy/AdvReac Type Severity Reaction Status Date / Time No Known Allergies Allergy Verified 04/23/24 12:54 [facility] <CORNEL Maguire - Last Filed: 04/23/24 21:05> [facility] Disclaimer: The information contained in this section may have been updated after the patient was seen, as this information can be updated by other users. Medical History Acute viral syndrome Arthritis Bronchitis Candidal dermatitis Fatty liver Folliculitis barbae Hereditary hemochromatosis Laceration of left leg excluding thigh Muscle spasm Sinusitis Surgical History H/O vasectomy History of hernia repair S/P scrotal varicocelectomy Family History Father Cancer prostate Mother CHF (congestive heart failure) Other Family history of diabetes mellitus type I Family history of diabetes mellitus type II Social History Smoking Status: Never smoker years smoked: 30 alcohol intake: current alcohol intake frequency: a few times a week substance use type: denies use current occupational status: employed Travel in the last 8 weeks: None Have you lived/traveled outside US in past 30 days?: No Contact w/someone who lives/traveled outside US past 30 days?: No Exposure to someone with infectious disease in past 14 days?: No Do you have a fever (greater than 100.4 F or 38 C)?: No Have you tested positive for COVID-19: No Exposed to someone with COVID-19 in past 14 days?: No Do you have a sore throat?: No Do you have a cough?: No Do you have any weakness?: No Do you have any diarrhea?: No Are you experiencing any unusual bleeding?: No Do you have any muscle aches/pain?: No Do you have any abdominal pain?: No Are you experiencing loss of taste or smell?: No Other Medical History Have you received the Flu Vaccine for this season: Yes Have you received the Pneumonia Vaccine: No <CORNEL Maguire - Last Filed: 04/23/24 21:05> ROS Obtained: Yes Systems reviewed as appropriate & no additional complaints except as documented Physical Exam <CORNEL Maguire - Last Filed: 04/23/24 21:05> General General appearance: alert and in no apparent distress Respiratory Respiratory exam: Present normal lung sounds bilaterally Cardiovascular Cardiovascular exam: Present regular rate Neurological Exam Neurological exam: Present alert, oriented X3 and CN II-XII intact Medical Decision Making <CORNEL Maguire - Last Filed: 04/23/24 21:05> Medical Records Medical records reviewed: Yes I reviewed the patient's medical records. Screening: Per USPSTF and CDC recommendations, given the prevalence of disease in our region, it is our hospital?s policy to screen for HIV and viral Hepatitis for all patients aged 18 and over and those with ongoing risk factors. Balwinder Inquiry Pt receiving controlled substance: No Vital Signs: 04/23/24 14:06 04/23/24 14:52 Temperature 98.7 F 98.7 F Temperature Source Oral Pulse Rate 74 Pulse Rate [Left Radial] 84 Respiratory Rate 18 13 Blood Pressure 151/95 H Blood Pressure [Right Arm] 155/100 H Blood Pressure Mean [Right Arm] 118 02 Sat by Pulse Oximetry 96 Oxygen Delivery Method Room Air Lab Data Lab results reviewed: Yes I reviewed the patient's lab results. Orders (Tests/Meds): ED MEDICATIONS Discontinued Medications Generic Name Dose Route Start Last Admin Trade Name Freq PRN Reason Stop Dose Admin Amoxicillin/Clavulanate Potassium 1 each 04/23/24 14:39 04/23/24 14:43 Amoxicillin/Clavulanate Potassium 875/125mg Tablet PO 04/23/24 14:40 1 each ONCE ONE Administration Medical Decision Narrative: In summary patient is a 49-year-old male who presents to the emergency department for evaluation of right-sided facial swelling and dental pain. Patient is hemodynamically stable upon arrival, afebrile. Physical exam is remarkable for severe dental caries with numerous teeth that appear to be rotting. In the affected area it is the right upper incisor where the pain is the locus. There is no evidence of abscess or buccal swelling. At the apex of that tooth there is a small exterior gingival pustule that did not express pus when unroofed. Patient retains a sense of smell and taste there is no palatine swelling or tenderness.. Differential diagnosis includes cellulitis versus dentalgia. Initial workup was considered including labs and imaging however patient has no red flags including no fever no evidence of abscess thus it is deferred.. Initial interventions include Augmentin orally here. Given that there are no red flags to indicate further imaging or laboratory testing patient is appropriate for discharge with a prescription for Augmentin with first dose given here and referral to dentistry for evaluation of root canal. Patient given strict return precautions. <Spike Nguyen MD - Last Filed: 04/24/24 08:17> Vital Signs: 04/23/24 14:06 04/23/24 14:52 Temperature 98.7 F 98.7 F Temperature Source Oral Pulse Rate 74 Pulse Rate [Left Radial] 84 Respiratory Rate 18 13 Blood Pressure 151/95 H Blood Pressure [Right Arm] 155/100 H Blood Pressure Mean [Right Arm] 118 02 Sat by Pulse Oximetry 96 Oxygen Delivery Method Room Air Orders (Tests/Meds): ED MEDICATIONS Discontinued Medications Generic Name Dose Route Start Last Admin Trade Name Freq PRN Reason Stop Dose Admin Amoxicillin/Clavulanate Potassium 1 each 04/23/24 14:39 04/23/24 14:43 Amoxicillin/Clavulanate Potassium 875/125mg Tablet PO 04/23/24 14:40 1 each ONCE ONE Administration Medical Decision Narrative: In summary patient is a 49-year-old male who presents to the emergency department for evaluation of right-sided facial swelling and dental pain. Patient is hemodynamically stable upon arrival, afebrile. Physical exam is remarkable for severe dental caries with numerous teeth that appear to be rotting. In the affected area it is the right upper incisor where the pain is the locus. There is no evidence of abscess or buccal swelling. At the apex of that tooth there is a small exterior gingival pustule that did not express pus w hen unroofed. Patient retains a sense of smell and taste there is no palatine swelling or tenderness.. Differential diagnosis includes cellulitis versus dentalgia. Initial workup was considered including labs and imaging however patient has no red flags including no fever no evidence of abscess thus it is deferred.. Initial interventions include Augmentin orally here. Given that there are no red flags to indicate further imaging or laboratory testing patient is appropriate for discharge with a prescription for Augmentin with first dose given here and referral to dentistry for evaluation of root canal. Patient given strict return precautions. I was consulted by the MYKEL, and we discussed the complexity of the problems being addressed. I approved the treatment and management plan for this patient's care in the Emergency Department, thus performing a substantive portion of the medical decision making. Spike Nguyen MD Critical Care <CORNEL Maguire - Last Filed: 04/23/24 21:05> Critical Care Time Critical Care Time: No
[2024-04-23] MEDS: AMOXICILLIN/CLAVULANATE POTASSIUM 875/125MG TABLET 1 EACH PO (14:43)
[2024-04-23 14:52] VITALS: BP 151/95; PULSE 74; RESP 13; TEMP 37.1
== END 2024-04-23 14:53 | disposition home or self-care (01) ==
PROVIDERS: Emergency Provider Emergency Medicine; PCP Internal Medicine
DX: L03.211 Cellulitis of face (principal); K02.9 Dental caries, unspecified; R22.0 Localized swelling, mass and lump, head; K08.89 Other specified disorders of teeth and supporting structures
CPT/HCPCS: 99283

== ENCOUNTER 2024-04-30 13:01 | Outpatient (CLI) | payer OTHER, SELFPAY ==
[2024-04-30 13:04] VITALS: BMI 31.4
--- NOTE | 2024-04-30 13:05 | PC.NURSE ---
alda,nurse beach expert collected labs via venipuncture stick in left ac with butterfly needle
[2024-04-30 13:19] LABS: Hematocrit 44.4 % (42.0-52.0); Hemoglobin 15.1 g/dL (14.1-18.0)
[2024-04-30 14:03] LABS: Ferritin 170 ng/ml (17.9-464)
[2024-04-30 14:26] VITALS: BP 134/81; PULSE 99; RESP 18; TEMP 36.6; O2SAT 96
[2024-04-30 14:57] VITALS: BP 151/97; PULSE 105; RESP 18; O2SAT 97
== END 2024-04-30 14:57 | disposition home or self-care (01) ==
LOC: INF 13:02
PROVIDERS: PCP Internal Medicine; Visit Provider Physician Assistant
DX: L03.211 Cellulitis of face (principal)
CPT/HCPCS: 36415; 82728; 85014; 85018; 99195

== ENCOUNTER 2024-05-28 12:56 | Outpatient (CLI) | payer OTHER, SELFPAY ==
[2024-05-28 13:00] VITALS: BMI 31.4
[2024-05-28 13:10] LABS: Hemoglobin 15.1 g/dL (14.1-18.0)
[2024-05-28 14:01] LABS: Ferritin 86.8 ng/ml (17.9-464)
--- NOTE | 2024-05-28 14:28 | PC.NURSE ---
1300- H&H and ferritin drawn per MD order via butterfly needle. needle removed and coban applied. pt tolerated well. 1425- ferritin results, 86. pt does not need phlebotomy per MD order. pt notified and rescheduled for 1 month for recheck per order.
== END 2024-05-28 14:37 | disposition home or self-care (01) ==
LOC: INF 12:57
PROVIDERS: PCP Nurse Practitioner Family; Visit Provider Physician Assistant
DX: L03.211 Cellulitis of face (principal); R22.0 Localized swelling, mass and lump, head
CPT/HCPCS: 36415; 82728; 85014; 85018

== ENCOUNTER 2024-06-25 12:12 | Outpatient (CLI) | payer OTHER, SELFPAY ==
[2024-06-25 12:22] VITALS: BMI 30.9
[2024-06-25 12:30] LABS: Hematocrit 45.4 % (42.0-52.0); Hemoglobin 15.6 g/dL (14.1-18.0)
[2024-06-25 13:12] LABS: Ferritin 67.9 ng/ml (17.9-464)
--- NOTE | 2024-06-25 13:44 | PC.NURSE ---
ferritin on todays labs does not meet requirement for therapeutic phlebotomy. pt notified and f/u scheduled.
== END 2024-06-25 12:30 | disposition home or self-care (01) ==
LOC: INF 12:12
PROVIDERS: PCP Nurse Practitioner Family; Visit Provider Physician Assistant
DX: E83.110 Hereditary hemochromatosis (principal)
CPT/HCPCS: 36415; 82728; 85014; 85018

== ENCOUNTER 2024-07-23 12:56 | Outpatient (CLI) | payer OTHER, SELFPAY ==
--- OUTSIDE RECORDS SUMMARY | 2024-07-23 12:58 | XMS_ITS | Continuity of Care Document ---
Author Organization [facility] Phone Care Team Providers Care Risk Mgr Name Role Phone ADELAIDE SILVEIRA Unavailable [phone] ADELAIDE SILVEIRA Admitting DECLINED, PCP Primary Care Unavailable ADELAIDE SILVEIRA Primary Attending RESULTS Patient: MILDRED Smith Date of : 1975 1 LABORATORY RESULTS ORDER 100: CBC W/ AUTO DIFF (LOINC: 99150-4) ORDER DATE: May 17, 2024 9:36:00 PM UTC Specimen Source: Whole Blood Specimen Type: Whole blood s ample PERFORMING LAB: [address] [id number] Result Comment: Final Result Date: May 17, 2024 10:33:00 PM UTC (TECH: EAB) LOINC TEST FLAG RESULT REFERENCE RANGE UPDA MONO BY 6690-2 Leukocytes [#/volume ] in Blood by Automated count N 5.93 K/uL 4.5 K/uL - 11.5 K/uL May 17, 2024 10:33:00 PM UTC (TECH: EAB) 789-8 Erythrocytes [#/volume] in Blood by Automated count N 4.37 M/uL 4.0 M/uL - 5.4 M/uL May 17, 2024 10:33:00 PM UTC (TECH: EAB) 718-7 Hemoglobin [Mass/volume] in Blood L 13.9 g/dL 14.0 g/dL - 18.0 g/dL May 17, 2024 10:33:00 PM UTC (TECH: EAB) 4544-3 Hematocrit [Volume Fraction] of Blood by Automated count N 40.5 % 40 % - 54 % May 17, 2024 10:33:00 PM UTC (TECH: EAB) 787-2 Erythrocyte mean corpuscular volume [Entitic volume] by Automated count N 92.7 fL 80.0 fL - 100.0 fL May 17, 2024 10:33:00 PM UTC (TECH: EAB) 785-6 Erythrocyte mean corpuscular hemoglobin [Entitic mass] by Automated count N 31.8 pg 26.0 pg - 32.0 pg May 17, 2024 10:33:00 PM UTC (TECH: EAB) 786-4 Erythrocyte mean corpuscular hemoglobin concentration [Mass/volume] by Automated count N 34.3 g/dL 32.0 g/dL - 36.0 g/dL May 17, 2024 10:33:00 PM UTC (TECH: EAB) 788-0 Erythrocyte distribution width [Ratio] by Automated count N 13.3 % 11.5 % - 14.5 % May 17, 2024 10:33:00 PM UTC (TECH: EAB) 777-3 Platelets [#/volume] in Blood by Automated count N 301 K/uL 142 K/uL - 424 K/uL May 17, 2024 10:33:00 PM UTC (TECH: EAB) 96605-5 Platelet mean volume [Entitic volume] in Blood by Automated count N 9.8 fL 6.8 fL - 10.2 fL May 17, 2024 10:33:00 PM UTC (TECH: EAB) 59315-9 Neutrophils/100 leukocytes in Blood N 64.9 % 50 % - 70 % May 17, 2024 10:33:00 PM UTC (TECH: EAB) 29850-6 Lymphocytes/100 leukocytes in Blood N 25.3 % 18.0 % - 42.0 % May 17, 2024 10:33:00 PM UTC (TECH: EAB) 35756-7 Monocytes/100 leukocytes in Blood N 7.1 % 2.0 % - 11.0 % May 17, 2024 10:33:00 PM UTC (TECH: EAB) 80232-3 Eosinophils/100 leukocytes in Blood N 1.9 % 1.0 % - 3.0 % May 17, 2024 10:33:00 PM UTC (TECH: EAB) 91598-6 Basophils/100 leukocytes in Blood N 0.5 % 0.0 % - 2.0 % May 17, 2024 10:33:00 PM UTC (TECH: EAB) 53947-0 Immature granulocytes/100 leukocytes in Blood by Automated count N 0.3 % 0.0 % - 0.8 % May 17, 2024 10:33:00 PM UTC (TECH: EAB) 77400-9 Nucleated cells [#/volume] in Blood N 0.0 % May 17, 2024 10:33:00 PM UTC (TECH: EAB) 75592-5 Neutrophils [#/volume] in Blood N 3.85 K/uL May 17, 2024 10:33:00 PM UTC (TECH: EAB) 02187-7 Lymphocytes [#/volume] in Blood N 1.50 K/uL May 17, 2024 10:33:00 PM UTC (TECH: EAB) 77724-9 Monocytes [#/volume] in Blood N 0.42 K/uL May 17, 2024 10:33:00 PM UTC (TECH: EAB) 83370-7 Eosinophils [#/volume] in Blood N 0.11 K/uL May 17, 2024 10:33:00 PM UTC (TECH: EAB) 704-7 Basophils [#/volume] in Blood by Automated count N 0.03 K/uL May 17, 2024 10:33:00 PM UTC (TECH: EAB) 63674-7 Immature granulocyte s [#/volume] in Blood N 0.02 K/uL May 17, 2024 10:33:00 PM UTC (TECH: EAB) 72804-4 Nucleated cells [#/volume] in Blood N 0.00 k/uL May 17, 2024 10:33:00 PM UTC (TECH: EAB) 89753-0 Manual differential comment [interpretation] in Blood Narrative N NO May 17, 2024 10:33:00 PM UTC (TECH: EAB) ORDER 200: IRON STUDY W FE/T IBC/UIBC/ SAT (LOINC: 42086-2) ORDER DATE: May 17, 2024 9:36:00 PM UTC Specimen Source: Serum Specimen Type: Serum specime n PERFORMING LAB: [address] [id number] Result Comment: Final Result Date: May 18, 2024 12:11:00 AM UTC (TECH: LN) LOINC TEST FLAG RESULT REFERENCE RANGE UPDA MONO BY 2498-4 Iron [Mass/volume] in Serum or Plasma N 156 ug/dL 49 ug/dL - 181 ug/dL May 18, 2024 12:11:00 AM UTC (TECH: LN) 2500-7 Iron binding capacity [Mass/volume] in Serum or Plasma N 364 ug/dL 261 ug/dL - 462 ug/dL May 18, 2024 12:11:00 AM UTC (TECH: LN) 2501-5 Iron binding capacity.unsaturat ed [Mass/volume] in Serum or Plasma N 208 ug/dl 150 ug/dl - 375 ug/dl May 18, 2024 12:11:00 AM UTC (TECH: LN) 2502-3 Iron saturation [Mass Fraction] in Serum or Plasma N 43 % 15 % - 55 % May 18, 2024 12:11:00 AM UT (TECH: LN) ORDER 300: FERRITIN (LOINC: 2276-4) ORDER DATE: May 17, 2024 9:36:00 PM UT Specimen Source: Serum Specimen Type: Serum specime n PERFORMING LAB: [address] [id number] Result Comment: Final Result Date: May 18, 2024 2:18:00 AM UT (TECH: LN) LOINC TEST FLAG RESULT REFERENCE RANGE UPDA MONO BY 2276-4 Ferritin [Mass/volume] in Serum or Plasma N 69 ng/mL 5 ng/mL - 244 ng/mL May 18, 2024 2:18:00 AM [facility] (TECH: LN) ORDER 400: COMP METABOLIC PA CALI (LOINC: 26567-4) ORDER DATE: May 17, 2024 9:36:00 PM UT Specimen Source: Serum Specimen Type: Serum specime n PERFORMING LAB: [address] [id number] Result Comment: Final Result Date: May 17, 2024 11:52:00 PM UT (TECH: LN) LOINC TEST FLAG RESULT REFERENCE RANGE UPDA MONO BY 2951-2 Sodium [Moles/volume ] in Serum or Plasma N 139 mmol/L 137 mmol/L - 147 mmol/L May 17, 2024 11:52:00 PM UTC (TECH: LN) 2823-3 Potassium [Moles/vol ume] in Serum or Plasma N 3.8 mmol/L 3.5 mmol/L - 5.1 mmol/L May 17, 2024 11:52:00 PM UTC (TECH: LN) 5-0 Chloride [Moles/volu me] in Serum or Plasma N 104 mmol/L 98 mmol/L - 110 mmol/L May 17, 2024 11:52:00 PM UTC (TECH: LN) 8-9 Carbon dioxide, tota l [Moles/volume] in Serum or Plasma N 23 mmol/L 21 mmol/L - 30 mmol/L May 17, 2024 11:52:00 PM UTC (TECH: LN) 58420-8 Anion gap in Serum o r Plasma N 12 mmol/L 6 mmol/L - 14 mmol/L May 17, 2024 11:52:00 PM UTC (TECH: LN) 2345-7 Glucose [Mass/volume ] in Serum or Plasma N 76 mg/dL 70 mg/dL - 115 mg/dL May 17, 2024 11:52:00 PM UTC (TECH: LN) 3094-0 Urea nitrogen [Mass/volume] in Serum or Plasma H 24 mg/dL 9 mg/dL - 20 mg/dL May 17, 2024 11:52:00 PM UTC (TECH: LN) 2160-0 Creatinine [Mass/vol ume] in Serum or Plasma N 1.2 mg/dL 0.5 mg/dL - 1.5 mg/dL May 17, 2024 11:52:00 PM UTC (TECH: LN) 3097-3 Urea nitrogen/Creati nine [Mass Ratio] in Serum or Plasma N 20 10 - 20 May 17, 2024 11:52:00 PM UTC (TECH: LN) 44260-0 Glomerular filtratio n rate/1.73 sq M.predicted N 74 mL/min >60 Februar 2024 11:52:00 PM UTC (TECH: LN) 21331-3 Osmolality of Serum or Plasma by calculation N 292 mOsmol/Kg 275 mOsmol/Kg - 301 mOsmol/Kg May 17, 2024 11:52:00 PM UTC (TECH: LN) 2885-2 Protein [Mass/volume ] in Serum or Plasma N 7.3 g/dL 6.2 g/dL - 8.2 g/dL May 17, 2024 11:52:00 PM [facility] (TECH: LN) 1751-7 Albumin [Mass/volume ] in Serum or Plasma N 4.7 g/dL 3.5 g/dL - 5.0 g/dL May 17, 2024 11:52:00 PM [facility] (TECH: LN) 36063-9 Calcium [Mass/volume ] in Serum or Plasma N 9.1 mg/dL 8.5 mg/dL - 10.8 mg/dL May 17, 2024 11:52:00 PM [facility] (TECH: LN) 1975-2 Bilirubin.total [Mass/volume] in Serum or Plasma H 1.4 mg/dL 0.2 mg/dL - 1.3 mg/dL May 17, 2024 11:52:00 PM [facility] (TECH: LN) 1920-8 Aspartate aminotransferase [Enzymatic activity/volume] in Serum or Plasma N 45 IU/L 17 IU/L - 59 IU/L May 17 11:52:00 PM [facility] (TECH: LN) 1742-6 Alanine aminotransfe rase [Enzymatic activity/volume] in Serum or Plasma H 111 IU/L 0 IU/L - 50 IU/L May 17 11:52:00 PM [facility] (TECH: LN) 90532-5 Alkaline phosphatase .bile [Enzymatic activity/volume] in Serum or Plasma N 73 IU/L 38 IU/L - 126 IU/L May 17, 2024 11:52:00 PM [facility] (TECH: LN) LABORATORY NARRATIVE RESULTS Information is not available RADIOLOGY RESULTS Information is not available PATHOLOGY NARRATIVE RESULTS Information is not available MICROBIOLOGY RESULTS No Micro Labs/Results Exist for Patient BLOOD ADMIN RESULTS Information is not available MEDICATIONS HOME MEDICATIONS Status RXNORM NDC Medication Dose Route Frequency Dates Comments Reported By Updated By Drug Treatment Unknown DISCHARGE MEDICATIONS Status RXNORM NDC Medication Dose Route Frequency Dates Comments Physician Updated By No Discharge Medication Info rmation Available INPATIENT MEDICATIONS Status RXNORM NDC Medication Dose Route Frequency Rat e Quantity Dates Comments Physician Updated By No Inpatient Medication Info rmation Available SOCIAL HISTORY SOCIAL HISTORY SNOMED-CT Social History Element Description Effective Dates Offered Cessation Comment UpdatedBy [id number] Smoking Status Unknown If Ever Smoked SOCIAL HISTORY - Gender Sex: Male SOCIAL HISTORY - Status : status i nformation is not available Intention in Next Year: intention information is not available SOCIAL HISTORY - Sexual Behavior Sexual Orientation Gender Identity SNOMED-CT Description SNO MED -CT Description Activity Level No of Partners Partner Type UpdatedBy Information is not available HEALTH CONCERNS Problems Concern Status Health Concern problem infor mation not available. Smoking Status Status Years Used Consumed packs p er day Health Concern smoking histo ry information not available. Family History Concern Status Health Concern family histor y information not available. ENCOUNTERS ENCOUNTER INFORMATION Reason for Visit LDO Admission May 17, 2024 9:35:[address] [id number] Discharge May 17, 2024 9:35:00 PM [facility] DISCHARGED TO HOME OR SELF CARE ENCOUNTER DIAGNOSES Notes information is not clarke ilable. Code System Diagnosis Onset Date Diagnosis information is not available. ABSTRACT DIAGNOSES Code System Diagnosis Updated By R77.8 ICD10 OTHER SPECIFIED ABNORMALITIES OF PLASMA PROTEINS [id number] on May 19, 2024 6:34:04 AM [facility] R77.8 ICD10 OTHER SPECIFIED ABNORMALITIES OF PLASMA PROTEINS [id number] on May 19, 2024 6:34:04 AM [facility] CARE TEAM Care Risk Mgr Role ADELAIDE SILVEIRA Referring ADELAIDE SILVEIRA Admitting PCP DECLINED Primary Care ADELAIDE SILVEIRA Primary Attending CARE TEAM CARE medical data entry clerk Role on Team Status Start Date End Date Update d By JORDANA UNGER Referring normal May 17, 2024 5:00:00 AM [facility] May 17, 2024 9:35:00 PM [facility] [id number] on May 18, 2024 10:05:33 AM [facility] JORDANA UNGER Attending normal May 17, 2024 5:00:00 AM [facility] May 17, 2024 9:35:00 PM [facility] [id number] on May 18, 2024 10:05:33 AM [facility] JORDANA BRYSON PA Admitting normal May 17, 2024 5:00:00 AM [facility] May 17, 2024 9:35:00 PM [place] [id number] on May 18, 2024 10:05:33 AM [facility] DECLINED PCP PCP normal May 17 5:00:00 AM [facility] May 17, 2024 9:35:00 PM [facility] [id number] on May 18, 2024 10:05:33 AM [facility]
[2024-07-23 12:59] VITALS: BMI 31.4
--- OUTSIDE RECORDS SUMMARY | 2024-07-23 12:59 | XMS_ITS | Data Portability ---
Author Organization [place] - [facility] - [place] [facility] ADMIN Address [address] [place] [id number] Care Team Providers Care Bus Boy Name Role Phone SATHISH SIERRA Primary Care Provider Assessment Encounter Date Assessment Date Assessment LastModified by Organization Details LastModified Time 09/23/2023 09/23/2023 48 yo male with elevated liver enzymes felt to be due to CURRAN. He does report alcohol consumption on weekends. 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 Liver biopsy did not show any stainable iron. 1) Elevated liver enzymes - Previous liver US was c/w fatty liver. Liver biopsy with marked steatosis grade 1, stage 0-1. Few eosinophils noted that could indicate component of drug induced injury. No stainable iron seen. -He has done an excellent job of losing weight via low carb dieting. He will continue his current efforts. Recommended he limit alcohol use. ALT >>AST. -Repeat labs today for continued monitoring. -Previously advised first-degree relatives to have genetic testing done for HH -Immune to Hep A, previously vaccinated for hepatitis B. 2) Elevated serum ferritin: Potentially due to alcohol use or CURRAN. He has a single hemochromatosis gene mutation and is unlikely to have iron overload. No stainable iron on liver biopsy. -Repeat ferritin today. If this remains persistently elevated, will refer to hematology to see if they feel phlebotomy may be of benefit. Follow-up 6 months [email or web address] Not available 09/23/2023 14:47:08 03/30/2024 03/30/2024 48 yo male with elevated liver enzymes felt to be due to CURRAN. He does report alcohol consumption on weekends. He is a carrier of hemochromatosis and has had persistently elevated ferritin as well. Liver biopsy did not show any stainable iron. 1) Elevated liver enzymes - Previous liver US was c/w fatty liver. Liver biopsy with marked steatosis grade 1, stage 0-1. Few eosinophils noted that could indicate component of drug induced injury. No stainable iron seen. -He had done an excellent job of losing weight via low carb dieting, but has gained 20 lbs back since he stopped dieting. He plans to resume the diet. Recommended he limit alcohol use. ALT >>AST. -Repeat labs today for continued monitoring. Obtain ELF test for further risk stratification. -Previously advised first-degree relatives to have genetic testing done for HH -Immune to Hep A, previously vaccinated for hepatitis B. 2) Elevated serum ferritin: He has a single hemochromatosis gene mutation. No stainable iron on liver biopsy. He is established with hematology, currently undergoing therapeutic phlebotomy monthly. Ferritin is at goal of <150. Follow-up 6 months [email or web address] Not available 03/30/2024 16:37:05 Plan of Treatment Reminders Order Date Submit Date Provider Last Modified By Organization Details Last Modified Time Details Appointments Establish ed Visit 15 min 2024 02:30P M Andres Valdez PA-C Not available Not available Not available OV EST 30 2024 01:00P M Kimberly Meza PA-C Not available Not available Not available Lab CBC w/ auto diff 2024 025 [facility] (Lab Registration) , [address] [place] [address] [place], [address], 05/24/2024 07:59:21 iron + TIBC + ferritin, serum 2024 025 [facility] (Lab Registration) , [address] [place] [address] [place], [address], 05/24/2024 07:59:21 iron saturatio n, serum 2024 025 [facility] (Lab Registration) , [address] [place] [address] [place], [address], 05/24/2024 07:59:21 CMP, serum or plasma 2024 025 [email or web address] [facility]ke[facility] (Lab Registration) , [address] [place] [address] [place], [address], 05/24/2024 07:59:21 CBC 2023 024 [facility], [address], [address], [place], [address], 04/03/2024 16:10:08 hepatic function panel, serum 2023 024 [facility], [address], [address], [place], [address], 04/03/2024 16:10:09 PT/INR 2023 024 [facility], [address], [address], [place], [address], 04/03/2024 16:10:10 liver fibrosis score, calculate d by ELF, serum or plasma 2023 024 [facility], [address], [address], [place], [address], 04/03/2024 16:10:11 ferritin, serum or plasma 2023 024 [facility], [address], [address], [place], [address], 04/03/2024 16:10:12 CBC w/ auto diff 2023 024 [facility] (Lab Registration) , [address] [place] [address] [place], [address], 01/19/2024 15:52:09 iron + TIBC + ferritin, serum 2023 024 [email or web address] [facility] (Lab Registration) , [address] [place] [address] [place], [address], 01/19/2024 15:52:10 iron saturatio n, serum [email or web address] [facility] (Lab Registration) , [address] [place] [address] [place], [address], 01/19/2024 15:52:10 CMP, serum or plasma [address] [address] [facility] (Lab Registration) , [address] [place] [address] [place], [address], 01/19/2024 15:52:10 hemochrom atosis mutation (hfe), blood/tis qamar 2023 024 [facility] (Lab Registration) , [address] [place] [address] [place], [address], 11/04/2023 15:13:14 CBC 2023 024 [facility], [address], [address], [place], [address], 09/24/2023 16:15:43 hepatic function panel, serum 2023 024 [facility], [address], [address], [place], [address], 09/24/2023 16:15:44 PT/INR 2023 024 [facility], [address], [address], [place], [address], 09/24/2023 16:15:45 ferritin, serum or plasma 2023 024 [facility], [address], [address], [place], [address], 09/24/2023 16:15:46 Referral None recorded. Procedures None recorded. Surgeries None recorded. Imaging None recorded. Medication Orders None recorded. Patient TargetsNo targets recorded. Patient InstructionsNo instructions recorded. Reason for Referral None Reported. Results Created Date Observation Date Name Description Value Unit Range Abnormal Flag Note LastModifiedBy Organization Detail LastModifiedTime 09/23/19 24 09/24/2023 CBC, PLATE LET, NO DIFFE RENTI AL WBC 7.2 x10e3 /uL 3.4-10 .8 Not Available [facility] ([facility]) [address] [place], [address], 09/24/2023 16:15:43 09/23/19 24 09/24/2023 CBC, PLATE LET, NO DIFFE RENTI AL RBC 5.11 x10e6 /uL 4.14-5 .80 Not Available [facility] ([facility]) [address] [place], [address], 09/24/2023 16:15:43 09/23/19 24 09/24/2023 CBC, PLATE LET, NO DIFFE RENTI AL hemoglobin 16.1 g/dL 13.0-1 7.7 Not Available [facility] ([facility]) [address] [place], [address], 09/24/2023 16:15:43 09/23/19 24 09/24/2023 CBC, PLATE LET, NO DIFFE RENTI AL hematocrit 48.3 % 37.5-5 1.0 Not Available [facility] ([facility]) [address] [place], [address], 09/24/2023 16:15:43 09/23/19 24 09/24/2023 CBC, PLATE LET, NO DIFFE RENTI AL MCV 95 fL 79-97 Not Available [facility] ([facility]) [address] [place], [address], 09/24/2023 16:15:43 09/23/19 24 09/24/2023 CBC, PLATE LET, NO DIFFE RENTI AL MCH 31.5 pg 26.6-3 3.0 Not Available [facility] ([facility]) [address] [facility], [address], 09/24/2023 16:15:43 09/23/19 24 09/24/2023 CBC, PLATE LET, NO DIFFE RENTI AL MCHC 33.3 g/dL 31.5-3 5.7 Not Available [facility] ([facility]) [address] [facility], [place], [address], 09/24/2023 16:15:43 09/23/19 24 09/24/2023 CBC, PLATE LET, NO DIFFE RENTI AL RDW 12.4 % 11.6-1 5.4 Not Available [facility] ([facility]) [address] [facility], [place], [address], 09/24/2023 16:15:43 09/23/19 24 09/24/2023 CBC, PLATE LET, NO DIFFE RENTI AL platelets 320 x10e3 /uL 150-45 0 Not Available [facility] ([facility]) [address] [facility], [place], [address], 09/24/2023 16:15:43 09/23/19 24 09/24/2023 CBC, PLATE LET, NO DIFFE RENTI AL NRBC MAGAZINE GRINDER LOADER Not Available [facility] ([facility]) [address] [facility], [place], [address], 09/24/2023 16:15:43 09/23/19 24 09/24/2023 HEPAT IC FUNCT ION PANEL (7) protein, total 7.2 g/dL 6.0-8. 5 Not Available [facility] ([facility]) [address] [facility], [place], [address], 09/24/2023 16:15:44 09/23/19 24 09/24/2023 HEPAT IC FUNCT ION PANEL (7) albumin 5.1 g/dL 4.1-5. 1 Not Available [facility] ([facility]) [address] [facility], [place], [address], 09/24/2023 16:15:44 09/23/19 24 09/24/2023 HEPAT IC FUNCT ION PANEL (7) bilirubin, total 1.6 mg/dL 0.0-1. 2 above high normal Not Available [facility] ([facility]) [address] [facility], [place], [address], 09/24/2023 16:15:44 09/23/19 24 09/24/2023 HEPAT IC FUNCT ION PANEL (7) bilirubin, direct 0.29 mg/dL 0.00-0 .40 Not Available [facility] ([facility]) [address] [place], [address], 09/24/2023 16:15:44 09/23/19 24 09/24/2023 HEPAT IC FUNCT ION PANEL (7) alkaline phosphatase 105 IU/L 44-121 Not Available [facility] ([facility]) [address] [place], [address], 09/24/2023 16:15:44 09/23/19 24 09/24/2023 HEPAT IC FUNCT ION PANEL (7) AST (SGOT) 33 IU/L 0-40 Not Available [facility] ([facility]) [address] [place], [address], 09/24/2023 16:15:44 09/23/19 24 09/24/2023 HEPAT IC FUNCT ION PANEL (7) ALT (SGPT) 62 IU/L 0-44 above high normal Not Available [facility] ([facility]) [address] [place], [address], 09/24/2023 16:15:44 09/23/19 24 09/24/2023 PROTH ROMBI N TIME (PT), SERIA L INR 1.1 0.9-1. 2 Refer ence inter africa is for non-a ntico agula margarita patie nts. Sugge sted INR thera peuti c range for Vitam in K antag onist thera py: Stand brendan Dose (mode rate inten sity thera peuti c range ): 2.0 - 3.0 Highe r inten sity thera peuti c range 2.5 - 3.5 Not Available [facility] ([facility]) [address] [facility], [place], [address], 09/24/2023 16:15:45 09/23/19 24 09/24/2023 PROTH ROMBI N TIME (PT), SERIA L prothrombin time 11.2 sec 9.1-12 .0 Not Available [facility] ([facility]) [address] [place], [address], 09/24/2023 16:15:45 09/23/19 24 09/24/2023 PROTH ROMBI N TIME (PT), SERIA L pdf . Not Available [facility] ([facility]) [address] [place], [address], 09/24/2023 16:15:45 09/23/19 24 09/24/2023 KONSTANTIN TIN ferritin 623 NG/mL 30-400 above high normal Not Available [facility] ([facility]) [address] [place], [address], 09/24/2023 16:15:46 10/09/19 24 10/09/2023 HERED ITARY HEMOC HROMA TOSIS note Unles s other joseph noted testi ng perfo rmed at: [facility] [address] [place] [address] Isac guthrie MD Not Available [facility] (Pre-Op Clinic) [address] [place] [address] [place], [address], 11/04/2023 15:13:14 10/09/19 24 11/04/2023 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 In sympt omati c indiv idual s, other cause s of iron overl oad shoul d be evalu ated. See Addit ional Infor matio n and Comme nts. . Addit ional Clini jian Infor matio n: Hered itary hemoc hroma tosis (HFE relat ed) is an autos omal reces sive iron stora ge disor naya. Patie nts may have a brennen ic diagn osis of hered itary hemoc hroma tosis and never show clini jian sympt oms. Clini jian sympt oms typic ally appea r betwe en 40 to 60 years in males and after menop ause in femal es. Signs and sympt oms may inclu de organ damag e, prima rily in the liver , risk for hepat ocell ular carci noma, diabe alex, and heart disea se due to iron accum ulati on. Life expec tancy may be decre ased in indiv idual s who devel op cirrh osis. Treat ment for clini nader sympt omati c indiv idual s may inclu de thera peuti c phleb otomy . Liver trans plant may be used to treat end stage liver failu re. For preve ntive care, monit oring for iron overl oad is recom berny d for patie nts who are homoz ygous for c.845 G>A (p.Cy s282T yr) and have yet to exper ience clini jian sympt oms. . Comme nts: The most commo n HFE varia nts assoc iated with hered itary hemoc hroma tosis are c.845 G>A (p.Cy s282T yr), c.187 C>G (p.Hi s63As p), c.193 A>T (p.Se r65Cy s). While patie nts homoz ygous for c.845 G>A (p.Cy s282T yr) are the most likel y to prese nt clini jian sympt oms, less than 10% devel op clini nader signi fican t iron overl oad with tissu e and organ damag e. . Brennen ic couns mckenna is recom berny d to discu ss the poten tial clini jian impli catio ns of posit arianne resul ts, as well as recom menda tions for testi ng famil y membe rs. Brennen ic Coord inato rs are avail able for healt h care provi ders to discu ss resul ts at [phone] . Test Detai ls: Three varia nts kaylin zed: c.845 G>A (p.Cy s282T yr), commo nly refer red to as C282Y c.187 C>G (p.Hi s63As p), commo nly refer red to as H63D c.193 A>T (p.Se r65Cy s), commo nly refer red to as S65C . Metho ds/Li mitat ions: DNA Kaylin sis of the HFE gene ([id number]) was perfo rmed by PCR ampli ficat ion follo wed by restr ictio n enzym e diges tion kaylin ses. Resul ts must be combi guicho with clini jian infor matio n for the most accur ate inter preta tion. Molec ular- based testi ng is highl y accur ate, but as in any labor atory test, diagn ostic error s may occur . False posit arianne or false negat arianne resul ts may occur for reaso ns that inclu de brennen ic varia nts, blood trans fusio ns, bone marro w trans plant ation , somat ic or tissu e-spe cific mosai cism, misla beled sampl es, or frank eous repre senta tion of famil y relat ionsh ips. This test was devel oped and its perfo rmanc e salas cteri stics deter mined by [facility]. It has not been clear ed or appro pancho by the Food and Drug Admin istra tion. . Refer ences : Manuel BR, Dandy PC, Kojcl ey KV, Janie l LW, Laurie l ; Ameri can Assoc iatio n for the Study of Liver Disea ses. Diagn osis and manag ement of hemoc hroma tosis : 2010 pract ice guide line by the Ameri can Assoc iatio n for the Study of Liver Disea ses. Hepat ology . 2010; 4(1): 328-4 3. doi: 10.10 / p.243 30. PMID: 09948 290; PMCID : PMC31 05148 . Shila G, King ot P, Moreno curran DW, Anna Marie r H, [place] rowan O, Jose n S, Bushra o I, Jillian guthrie M, Chris holland S. EMQN best pract ice guide lines for the molec ular brennen ic diagn osis of hered itary hemoc hroma tosis (HH). Eur J Hum Brennen . 2016 Jul;2 4(4): 479-9 5. doi: 10.10 / hg.20 15.12 8. Epub 2014 8. PMID: 11893 218; PMCID : PMC49 03093 . Not Available [facility] (Pre-Op Clinic) [address] [place] [address] [place], [address], 11/04/2023 15:13:14 10/09/19 24 11/04/2023 HERED ITARY HEMOC HROMA TOSIS reviewed by: ELIZABETH Brito , PhD FAC Perfo rmed at: - [facility] [address] [facility] , [place] [address] Lab Direc tor: Kole Toledo [facility] , Phone : [phone] Not Available [facility] (Pre-Op Clinic) [address] [place] [address] [place], [address], 11/04/2023 15:13:14 01/12/20 24 01/12/2024 CBC W/ AUTO DIFF WBC 5.84 K/uL 4.5-11 .5 Not Available [facility] (Pre-Op Clinic) [address] [place] [address] [place], [address], 01/12/2024 14:36:35 01/12/20 24 01/12/2024 CBC W/ AUTO DIFF RBC 4.19 M/uL 4.0-5. 4 Not Available [facility] (Pre-Op Clinic) [address] [place] [address] [place], [address], 01/12/2024 14:36:35 01/12/20 24 01/12/2024 CBC W/ AUTO DIFF HGB 14.0 g/dL 14.0-1 8.0 Not Available [facility] (Pre-Op Clinic) [address] [place] [address] [place], [address], 01/12/2024 14:36:35 01/12/20 24 01/12/2024 CBC W/ AUTO DIFF HCT 40.5 % 40-54 Not Available [facility] (Pre-Op Clinic) [address] [place] [address] [place], [address], 01/12/2024 14:36:35 01/12/20 24 01/12/2024 CBC W/ AUTO DIFF MCV 96.7 fL 80.0-1 00.0 Not Available [facility] (Pre-Op Clinic) [address] [place] [address] [place], [address], 01/12/2024 14:36:35 01/12/20 24 01/12/2024 CBC W/ AUTO DIFF MCH 33.4 pg 26.0-3 2.0 high Not Available [facility] (Pre-Op Clinic) [address] [place] [address] [place], [address], 01/12/2024 14:36:35 01/12/20 24 01/12/2024 CBC W/ AUTO DIFF MCHC 34.6 g/dL 32.0-3 6.0 Not Available [facility] (Pre[facility]Op [facility]) [address] [place] [address] [place], [address], 01/12/2024 14:36:35 01/12/20 24 01/12/2024 CBC W/ AUTO DIFF RDW 13.0 % 11.5-1 4.5 Not Available [facility] (Pre[facility]Op [facility]) [address] [place] [address] [place], [address], 01/12/2024 14:36:35 01/12/20 24 01/12/2024 CBC W/ AUTO DIFF platelet count 287 K/uL 142-42 4 Not Available [facility] (Pre-Op Clinic) [address] [place] [address] [place], [address], 01/12/2024 14:36:35 01/12/20 24 01/12/2024 CBC W/ AUTO DIFF MPV 10.0 fL 6.8-10 .2 Not Available [facility] (Pre-Op Clinic) [address] [place] [address] [place], [address], 01/12/2024 14:36:35 01/12/20 24 01/12/2024 CBC W/ AUTO DIFF neutrophil % 63.2 % 50-70 Not Available [facility] (Pre-Op Clinic) [address] [place] [address] [place], [address], 01/12/2024 14:36:35 01/12/20 24 01/12/2024 CBC W/ AUTO DIFF lymphocyte % 24.7 % 18.0-4 2.0 Not Available [facility] (Pre-Op Clinic) [address] [place] [address] [place], [address], 01/12/2024 14:36:35 01/12/20 24 01/12/2024 CBC W/ AUTO DIFF monocyte % 8.7 % 2.0-11 .0 Not Available [facility] (Pre-Op Clinic) [address] [place] [address] [place], [address], 01/12/2024 14:36:35 01/12/20 24 01/12/2024 CBC W/ AUTO DIFF eosinophil % 2.2 % 1.0-3. 0 Not Available [facility] (Pre-Op Clinic) [address] [place] [address] [place], [address], 01/12/2024 14:36:35 01/12/20 24 01/12/2024 CBC W/ AUTO DIFF basophil % 0.5 % 0.0-2. 0 Not Available [facility] (Pre-Op Clinic) [address] [place], [address], 01/12/2024 14:36:35 01/12/20 24 01/12/2024 CBC W/ AUTO DIFF immature granulocytes % 0.7 % 0.0-0. 8 Not Available [facility] (Pre-Op Clinic) [address] [place] [address] [place], [address], 01/12/2024 14:36:35 01/12/20 24 01/12/2024 CBC W/ AUTO DIFF nucleated red blood cells % 0.0 % Not Available [facility] (Pre-Op Clinic) [address] [place], [address], 01/12/2024 14:36:35 01/12/20 24 01/12/2024 CBC W/ AUTO DIFF neutrophil # 3.69 K/uL Not Available [facility] (Pre-Op Clinic) [address] [place], [address], 01/12/2024 14:36:35 01/12/20 24 01/12/2024 CBC W/ AUTO DIFF lymphocyte # 1.44 K/uL Not Available [facility] (Pre-Op Clinic) [address] [place], [address], 01/12/2024 14:36:35 01/12/20 24 01/12/2024 CBC W/ AUTO DIFF monocyte # 0.51 K/uL Not Available [facility] (Pre-Op Clinic) [address] [place], [address], 01/12/2024 14:36:35 01/12/20 24 01/12/2024 CBC W/ AUTO DIFF eosinophil # 0.13 K/uL Not Available [facility] (Pre-Op Clinic) [address] [place] [address] [place], [address], 01/12/2024 14:36:35 01/12/20 24 01/12/2024 CBC W/ AUTO DIFF basophil # 0.03 K/uL Not Available [facility] (Pre-Op Clinic) [address] [place] [address] [place], [address], 01/12/2024 14:36:35 01/12/20 24 01/12/2024 CBC W/ AUTO DIFF immature gramulocytes # 0.04 K/uL Not Available [facility] (Pre-Op Clinic) [address] [place] [address] [place], [address], 01/12/2024 14:36:35 01/12/20 24 01/12/2024 CBC W/ AUTO DIFF nucleated red blood cells # 0.00 k/uL Not Available [facility] (Pre-Op Clinic) [address] [place] [address] [place], [address], 01/12/2024 14:36:35 01/12/20 24 01/12/2024 CBC W/ AUTO DIFF manual differential NO Not Available [facility] (Pre-Op Clinic) [address] [place] [address] [place], [address], 01/12/2024 14:36:35 01/12/20 24 01/12/2024 CBC W/ AUTO DIFF note Unles s other joseph noted testi ng perfo rmed at: [facility] [address] [place] [address] Isac guthrie MD Not Available [facility] (Pre-Op Clinic) [address] [place] [address] [place], [address], 01/12/2024 14:36:35 01/12/20 24 01/12/2024 COMP METAB OLIC PANEL sodium 144 mmol/ L 137-14 7 Not Available [facility] (Pre-Op Clinic) [address] [place] [address] [place], [address], 01/12/2024 15:06:19 01/12/20 24 01/12/2024 COMP METAB OLIC PANEL potassium 4.2 mmol/ L 3.5-5. 1 Not Available [facility] (Pre-Op [facility]) [address] [place], [address], 01/12/2024 15:06:19 01/12/20 24 01/12/2024 COMP METAB OLIC PANEL chloride 106 mmol/ L 98-110 Not Available [facility] (Pre-Op [facility]) [address] [place], [address], 01/12/2024 15:06:19 01/12/20 24 01/12/2024 COMP METAB OLIC PANEL carbon dioxide 24 mmol/ L 21-30 Not Available [facility] (Pre-Op [facility]) [address] [place] [address] [place], [address], 01/12/2024 15:06:19 01/12/20 24 01/12/2024 COMP METAB OLIC PANEL anion gap 14 mmol/ L 6-14 Not Available [facility] (Pre-Op [facility]) [address] [place] [address] [place], [address], 01/12/2024 15:06:19 01/12/20 24 01/12/2024 COMP METAB OLIC PANEL glucose 97 mg/dL 70-115 Not Available [facility] (Pre[facility]Op [facility]) [address] [place] [address] [place], [address], 01/12/2024 15:06:19 01/12/20 24 01/12/2024 COMP METAB OLIC PANEL BUN 20 mg/dL 9-20 Not Available [facility] (Pre-Op [facility]) [address] [place] [address] [place], [address], 01/12/2024 15:06:19 01/12/20 24 01/12/2024 COMP METAB OLIC PANEL creatinine 1.1 mg/dL 0.5-1. 5 Not Available [facility] (Pre-Op [facility]) [address] [place] [address] [place], [address], 01/12/2024 15:06:19 01/12/20 24 01/12/2024 COMP METAB OLIC PANEL BUN/creatini ne ratio 18 ratio 10-20 Not Available [facility] (Pre-Op [facility]) [address] [place] [address] [place], [address], 01/12/2024 15:06:19 01/12/20 24 01/12/2024 COMP METAB OLIC PANEL glom filtration rate 82 mL/mi n >60- GFR LIMIT ATION : The eGFR equat ion CKD-E PI 2020 is not appli cable for pedia tric patie nts or great er than 90 years of age. The follo wing condi tions may alter the GFR resul t: extre mes in body size, malnu triti on or obesi ty, skele brian muscl e disea se, parap legia or quadr ipleg ia, veget chiara diet or rapid ly chester ing kiney funct ion. Not Available [facility] (Pre-Op [facility]) [address] [place] [address] [place], [address], 01/12/2024 15:06:19 01/12/20 24 01/12/2024 COMP METAB OLIC PANEL osmolality (calculated) 302 mosmo l/kg 275-30 1 high OSMOL ALITY IS A CALCU LATIO N UTILI ZING THE SERUM /PLAS MA SODIU M, GLUCO SE AND UREA NITRO GEN (BUN) LEVEL S. FOR THE MOST ACCUR ATE RESUL T A MEASU RED SERUM OSMOL ALITY IS SUGGE STED. Not Available [facility] (Pre-Op [facility]) [address] [place] [address] [place], [address], 01/12/2024 15:06:19 01/12/20 24 01/12/2024 COMP METAB OLIC PANEL total protein 7.0 g/dL 6.2-8. 2 Not Available [facility] (Pre-Op Clinic) [address] [place] [address] [place], [address], 01/12/2024 15:06:19 01/12/20 24 01/12/2024 COMP METAB OLIC PANEL albumin 4.6 g/dL 3.5-5. 0 Not Available [facility] (Pre-Op [facility]) [address] [place] [address] [place], [address], 01/12/2024 15:06:19 01/12/20 24 01/12/2024 COMP METAB OLIC PANEL calcium 9.0 mg/dL 8.5-10 .8 Not Available [facility] (Pre[facility]Op [facility]) [address] [place] [address] [place], [address], 01/12/2024 15:06:19 01/12/20 24 01/12/2024 COMP METAB OLIC PANEL bilirubin total 1.3 mg/dL 0.2-1. 3 Not Available [facility] (Pre-Op Clinic) [address] [place] [address] [place], [address], 01/12/2024 15:06:19 01/12/20 24 01/12/2024 COMP METAB OLIC PANEL AST (SGOT) 41 IU/L 17-59 Not Available [facility] (Pre-Op Clinic) [address] [place] [address] [place], [address], 01/12/2024 15:06:19 01/12/20 24 01/12/2024 COMP METAB OLIC PANEL ALT (SGPT) 78 IU/L 0-50 high Pleas e note new refer ence [place] for ALT. Due to a recen t manuf actur er metho dolog y chester e, the refer ence [place] for ALT is lower effec tive August 03, 2020. Not Available [facility] (Pre[facility]Op [facility]) [address] [place] [address] [place], [address], 01/12/2024 15:06:19 01/12/2001/12/2024 COMP METAB OLIC PANEL alk phosphatase 64 IU/L 38-126 Not Available [facility] (Pre-Op Clinic) [address] [place] [address] [place], [address], 01/12/2024 15:06:19 01/12/20 24 01/12/2024 COMP METAB OLIC PANEL note Unles s other joseph noted testi ng perfo rmed at: [facility] [address] [place] [address] Isac guthrie MD Not Available [facility] ([facility]Op [facility]) [address] [place] [address] [place], [address], 01/12/2024 15:06:19 01/12/20 24 01/12/2024 IRON STUDY W FE/TI BC/UI BC/%S AT iron 124 ug/dL 49-181 Not Available [facility] ([facility]Op [facility]) [address] [place] [address] [place], [address], 01/12/2024 15:12:02 01/12/20 24 01/12/2024 IRON STUDY W FE/TI BC/UI BC/%S AT total iron bind cap. 416 ug/dL 261-46 2 Not Available [facility] ([facility]Op [facility]) [address] [place] [address] [place], [address], 01/12/2024 15:12:02 01/12/20 24 01/12/2024 IRON STUDY W FE/TI BC/UI BC/%S AT unsaturated iron binding cap 292 ug/dL 150-37 5 Not Available [facility] ([facility]Op [facility]) [address] [place] [address] [place], [address], 01/12/2024 15:12:02 01/12/20 24 01/12/2024 IRON STUDY W FE/TI BC/UI BC/%S AT % saturation 30 % 15-55 Not Available [facility] (Pre[facility]Op [facility]) [address] [place] [address] [place], [address], 01/12/2024 15:12:02 01/12/20 24 01/12/2024 IRON STUDY W FE/TI BC/UI BC/%S AT note Unles s other joseph noted testi ng perfo rmed at: [facility] [address] [place] [place] [address] Isac guthrie MD Not Available [facility] ([facility]) [address] [facility] [place], [address], 01/12/2024 15:12:02 01/12/20 24 01/12/2024 KONSTANTIN TIN ferritin 118 NG/mL 5-244 Not Available [facility] ([facility]Op [facility]) [address] [place] [address] [place], [address], 01/12/2024 15:39:15 01/12/20 24 01/12/2024 KONSTANTIN TIN note Unles s other joseph noted testi ng perfo rmed at: [facility] [address] [place] [address] Isac guthrie MD Not Available [facility] ([facility]Op [facility]) [address] [place] [address] [place], [address], 01/12/2024 15:39:15 03/30/20 24 03/31/2024 CBC, PLATE LET, NO DIFFE RENTI AL WBC 6.2 x10e3 /uL 3.4-10 .8 normal Not Available [facility] ([facility]) [address] [place], [address], 04/03/2024 16:10:08 03/30/20 24 03/31/2024 CBC, PLATE LET, NO DIFFE RENTI AL RBC 4.86 x10e6 /uL 4.14-5 .80 normal Not Available [facility] ([facility]) [address] [place], [address], 04/03/2024 16:10:08 03/30/20 24 03/31/2024 CBC, PLATE LET, NO DIFFE RENTI AL hemoglobin 15.1 g/dL 13.0-1 7.7 normal Not Available [facility] ([facility]) [address] [place], [address], 04/03/2024 16:10:08 03/30/20 24 03/31/2024 CBC, PLATE LET, NO DIFFE RENTI AL hematocrit 45.4 % 37.5-5 1.0 normal Not Available [facility] ([facility]) [address] [facility], [place], [address], 04/03/2024 16:10:08 03/30/20 24 03/31/2024 CBC, PLATE LET, NO DIFFE RENTI AL MCV 93 fL 79-97 normal Not Available [facility] ([facility]) [address] [facility], [place], [address], 04/03/2024 16:10:08 03/30/20 24 03/31/2024 CBC, PLATE LET, NO DIFFE RENTI AL MCH 31.1 pg 26.6-3 3.0 normal Not Available [facility] ([facility]) [address] [facility], [place], [address], 04/03/2024 16:10:08 03/30/20 24 03/31/2024 CBC, PLATE LET, NO DIFFE RENTI AL MCHC 33.3 g/dL 31.5-3 5.7 normal Not Available [facility] ([facility]) [address] [facility], [place], [address], 04/03/2024 16:10:08 03/30/20 24 03/31/2024 CBC, PLATE LET, NO DIFFE RENTI AL RDW 12.2 % 11.6-1 5.4 Not Available [facility] ([facility]) [address] [facility], [place], [address], 04/03/2024 16:10:08 03/30/20 24 03/31/2024 CBC, PLATE LET, NO DIFFE RENTI AL platelets 291 x10e3 /uL 150-45 0 normal Not Available [facility] ([facility]) [address] [facility], [place], [address], 04/03/2024 16:10:08 03/30/20 24 03/31/2024 CBC, PLATE LET, NO DIFFE RENTI AL NRBC [employer] LOADER Not Available [facility] ([facility]) [address] [facility], [place], [address], 04/03/2024 16:10:08 03/30/20 24 03/31/2024 HEPAT IC FUNCT ION PANEL (7) protein, total 6.8 g/dL 6.0-8. 5 normal Not Available [facility] ([facility]) [address] [place], [address], 04/03/2024 16:10:09 03/30/20 24 03/31/2024 HEPAT IC FUNCT ION PANEL (7) albumin 4.8 g/dL 4.1-5. 1 normal Not Available [facility] ([facility]) [address] [facility], [place], [address], 04/03/2024 16:10:09 03/30/20 24 03/31/2024 HEPAT IC FUNCT ION PANEL (7) bilirubin, total 1.2 mg/dL 0.0-1. 2 normal Not Available [facility] ([facility]) [address] [place], [address], 04/03/2024 16:10:09 03/30/20 24 03/31/2024 HEPAT IC FUNCT ION PANEL (7) bilirubin, direct 0.28 mg/dL 0.00-0 .40 normal Not Available [facility] ([facility]) [address] [place], [address], 04/03/2024 16:10:09 03/30/20 24 03/31/2024 HEPAT IC FUNCT ION PANEL (7) alkaline phosphatase 89 IU/L 44-121 normal Not Available [facility] ([facility]) [address] [place], [address], 04/03/2024 16:10:09 03/30/20 24 03/31/2024 HEPAT IC FUNCT ION PANEL (7) AST (SGOT) 35 IU/L 0-40 normal Not Available [facility] ([facility]) [address] [place], [address], 04/03/2024 16:10:09 03/30/20 24 03/31/2024 HEPAT IC FUNCT ION PANEL (7) ALT (SGPT) 76 IU/L 0-44 above high normal Not Available [facility] ([facility]) [address] [facility], [place], [address], 04/03/2024 16:10:09 03/30/20 24 03/31/2024 PROTH ROMBI N TIME (PT), SERIA L INR 1.1 0.9-1. 2 Refer ence inter [place] is for non-a ntico agula margarita patie nts. Sugge sted INR thera peuti c range for Vitam in K antag onist thera py: Stand brendan Dose (mode rate inten sity thera peuti c range ): 2.0 - 3.0 Highe r inten sity thera peuti c range 2.5 - 3.5 Not Available [facility] ([facility]) [address] [facility], [place], [address], 04/03/2024 16:10:10 03/30/20 24 03/31/2024 PROTH ROMBI N TIME (PT), SERIA L prothrombin time 11.6 sec 9.1-12 .0 normal Not Available [facility] ([facility]) [address] [place], [address], 04/03/2024 16:10:10 03/30/20 24 03/31/2024 PROTH ROMBI N TIME (PT), SERIA L pdf . Not Available [facility] ([facility]) [address] [place], [address], 04/03/2024 16:10:10 03/30/20 24 04/03/2024 ENHAN BAILEE LIVER FIBRO SIS (ELF) elf(tm) score 10.04 <9.80 above high normal ELF(T M) Score Inter preta tion: Risk cut-o ffs to asses s the likel ihood of progr essio n to cirrh osis and liver -rela margarita clini jian event s withi n 3.9 years lino severino ine ELF score (IQR: 14.0- 22.4 month s)*: Lower risk < 9.80 Mid risk 9.80 - 11.29 Highe r risk >11.2 9 Note: The ELF(T M) Score is a unitl ess numer ical value . *Enrique bhandari SA, Hudson VW, Robert gilmore T, et al. Selon serti b for patie nts with bridg ing fibro sis or compe nsate d cirrh osis due to CURRAN: Bela ts from rand elise phase III OUMAR AR trial s. J Hepat ol. 2019;7 3(1): 26-39 . Not Available [facility] ([facility]) [address] [place], [address], 04/03/2024 16:10:11 03/30/20 24 03/31/2024 KONSTANTIN TIN ferritin 278 NG/mL 30-400 normal Not Available [facility] ([facility]) [address] [place], [address], 04/03/2024 16:10:12 05/17/19 25 05/17/2024 CBC W/ AUTO DIFF WBC 5.93 K/uL 4.5-11 .5 Not Available [facility] ([facility]) [address] [place] [address] [place], [address], 05/17/2024 17:34:27 05/17/19 25 05/17/2024 CBC W/ AUTO DIFF RBC 4.37 M/uL 4.0-5. 4 Not Available [facility] ([facility]Op [facility]) [address] [place] [address] [place], [address], 05/17/2024 17:34:27 05/17/19 25 05/17/2024 CBC W/ AUTO DIFF HGB 13.9 g/dL 14.0-1 8.0 low Not Available [facility] (Pre-Op [facility]) [address] [place], [address], 05/17/2024 17:34:27 05/17/19 25 05/17/2024 CBC W/ AUTO DIFF HCT 40.5 % 40-54 Not Available [facility] ([facility]Op [facility]) [address] [place] [address] [place], [address], 05/17/2024 17:34:27 05/17/19 25 05/17/2024 CBC W/ AUTO DIFF MCV 92.7 fL 80.0-1 00.0 Not Available [facility] (Pre[facility]Op [facility]) [address] [place] [address] [place], [address], 05/17/2024 17:34:27 05/17/19 25 05/17/2024 CBC W/ AUTO DIFF MCH 31.8 pg 26.0-3 2.0 Not Available [facility] ([facility]Op [facility]) [address] [place] [address] [place], [address], 05/17/2024 17:34:27 05/17/19 25 05/17/2024 CBC W/ AUTO DIFF MCHC 34.3 g/dL 32.0-3 6.0 Not Available [facility] ([facility]) [address] [place] [address] [place], [address], 05/17/2024 17:34:27 05/17/19 25 05/17/2024 CBC W/ AUTO DIFF RDW 13.3 % 11.5-1 4.5 Not Available [facility] ([facility]Op [facility]) [address] [place] [address] [place], [address], 05/17/2024 17:34:27 05/17/19 25 05/17/2024 CBC W/ AUTO DIFF platelet count 301 K/uL 142-42 4 Not Available [facility] (Pre[facility]Op [facility]) [address] [place] [address] [place], [address], 05/17/2024 17:34:27 05/17/19 25 05/17/2024 CBC W/ AUTO DIFF MPV 9.8 fL 6.8-10 .2 Not Available [facility] ([facility]) [address] [place] [address] [place], [address], 05/17/2024 17:34:27 05/17/19 25 05/17/2024 CBC W/ AUTO DIFF neutrophil % 64.9 % 50-70 Not Available [facility] ([facility]Op [facility]) [address] [place] [address] [place], [address], 05/17/2024 17:34:27 05/17/19 25 05/17/2024 CBC W/ AUTO DIFF lymphocyte % 25.3 % 18.0-4 2.0 Not Available [facility] ([facility]) [address] [place] [address] [place], [address], 05/17/2024 17:34:27 05/17/19 25 05/17/2024 CBC W/ AUTO DIFF monocyte % 7.1 % 2.0-11 .0 Not Available [facility] (Pre[facility]Op [facility]) [address] [place] [address] [place], [address], 05/17/2024 17:34:27 05/17/19 25 05/17/2024 CBC W/ AUTO DIFF eosinophil % 1.9 % 1.0-3. 0 Not Available [facility] ([facility]Op [facility]) [address] [place] [address] [place], [address], 05/17/2024 17:34:27 05/17/19 25 05/17/2024 CBC W/ AUTO DIFF basophil % 0.5 % 0.0-2. 0 Not Available [facility] ([facility]Op [facility]) [address] [place] [address] [place], [address], 05/17/2024 17:34:27 05/17/19 25 05/17/2024 CBC W/ AUTO DIFF immature granulocytes % 0.3 % 0.0-0. 8 Not Available [facility] ([facility]Op [facility]) [address] [place] [address] [place], [address], 05/17/2024 17:34:27 05/17/19 25 05/17/2024 CBC W/ AUTO DIFF nucleated red blood cells % 0.0 % Not Available [facility] ([facility]Op [facility]) [address] [place], [address], 05/17/2024 17:34:27 05/17/19 25 05/17/2024 CBC W/ AUTO DIFF neutrophil # 3.85 K/uL Not Available [facility] ([facility]Op [facility]) [address] [place], [address], 05/17/2024 17:34:27 05/17/19 25 05/17/2024 CBC W/ AUTO DIFF lymphocyte # 1.50 K/uL Not Available [facility] (Pre[facility]Op [facility]) [address] [place], [address], 05/17/2024 17:34:27 05/17/19 25 05/17/2024 CBC W/ AUTO DIFF monocyte # 0.42 K/uL Not Available [facility] (Pre[facility]Op [facility]) [address] [place], [address], 05/17/2024 17:34:27 05/17/19 25 05/17/2024 CBC W/ AUTO DIFF eosinophil # 0.11 K/uL Not Available [facility] ([facility]Op [facility]) [address] [place], [address], 05/17/2024 17:34:27 05/17/19 25 05/17/2024 CBC W/ AUTO DIFF basophil # 0.03 K/uL Not Available [facility] ([facility]Op [facility]) [address] [place] [address] [place], [address], 05/17/2024 17:34:27 05/17/19 25 05/17/2024 CBC W/ AUTO DIFF immature gramulocytes # 0.02 K/uL Not Available [facility] ([facility]Op [facility]) [address] [place] [address] [place], [address], 05/17/2024 17:34:27 05/17/19 25 05/17/2024 CBC W/ AUTO DIFF nucleated red blood cells # 0.00 k/uL Not Available [facility] ([facility]) [address] [place] [address] [place], [address], 05/17/2024 17:34:27 05/17/19 25 05/17/2024 CBC W/ AUTO DIFF manual differential NO Not Available [facility] ([facility]) [address] [place] [address] [place], [address], 05/17/2024 17:34:27 05/17/19 25 05/17/2024 CBC W/ AUTO DIFF note Unles s other joseph noted testi ng perfo [facility]med at: [facility] [address] [place] [address] Isac guthrie MD Not Available [facility] ([facility]) [address] [place] [address] [place], [address], 05/17/2024 17:34:27 05/17/19 25 05/17/2024 COMP METAB OLIC PANEL sodium 139 mmol/ L 137-14 7 Not Available [facility] ([facility]) [address] [place] [address] [place], [address], 05/17/2024 18:54:31 05/17/19 25 05/17/2024 COMP METAB OLIC PANEL potassium 3.8 mmol/ L 3.5-5. 1 Not Available [facility] ([facility]) [address] [place] [address] [place], [address], 05/17/2024 18:54:31 05/17/19 25 05/17/2024 COMP METAB OLIC PANEL chloride 104 mmol/ L 98-110 Not Available [facility] ([facility]) [address] [place] [address] [place], [address], 05/17/2024 18:54:31 05/17/19 25 05/17/2024 COMP METAB OLIC PANEL carbon dioxide 23 mmol/ L 21-30 Not Available [facility] ([facility]) [address] [place] [address] [place], [address], 05/17/2024 18:54:31 05/17/19 25 05/17/2024 COMP METAB OLIC PANEL anion gap 12 mmol/ L 6-14 Not Available [facility] ([facility]) [address] [place] [address] [place], [address], 05/17/2024 18:54:31 05/17/19 25 05/17/2024 COMP METAB OLIC PANEL glucose 76 mg/dL 70-115 Not Available [facility] ([facility]) [address] [place] [address] [place], [address], 05/17/2024 18:54:31 05/17/19 25 05/17/2024 COMP METAB OLIC PANEL BUN 24 mg/dL 9-20 high Not Available [facility] ([facility]) [address] [place] [address] [place], [address], 05/17/2024 18:54:31 05/17/19 25 05/17/2024 COMP METAB OLIC PANEL creatinine 1.2 mg/dL 0.5-1. 5 Not Available [facility] ([facility]Op [facility]) [address] [place] [address] [place], [address], 05/17/2024 18:54:31 05/17/19 25 05/17/2024 COMP METAB OLIC PANEL BUN/creatini ne ratio 20 10-20 Not Available [facility] ([facility]Op [facility]) [address] [place] [address] [place], [address], 05/17/2024 18:54:31 05/17/19 25 05/17/2024 COMP METAB OLIC PANEL glom filtration rate 74 mL/mi n >60- GFR LIMIT ATION : The eGFR equat ion CKD-E PI 2020 is not appli cable for pedia tric patie nts or great er than 90 years of age. The follo wing condi tions may alter the GFR resul t: extre mes in body size, malnu triti on or obesi ty, skele brian muscl e disea se, parap legia or quadr ipleg ia, veget chiara diet or rapid ly chester ing kiney funct ion. Not Available [facility] ([facility]) [address] [place] [address] [place], [address], 05/17/2024 18:54:31 05/17/19 25 05/17/2024 COMP METAB OLIC PANEL osmolality (calculated) 292 mosmo l/kg 275-30 1 OSMOL ALITY IS A CALCU LATIO N UTILI ZING THE SERUM /PLAS MA SODIU M, GLUCO SE AND UREA NITRO GEN (BUN) LEVEL S. FOR THE MOST ACCUR ATE RESUL T A MEASU RED SERUM OSMOL ALITY IS SUGGE STED. Not Available [facility] ([facility]) [address] [place] [address] [place], [address], 05/17/2024 18:54:31 05/17/19 25 05/17/2024 COMP METAB OLIC PANEL total protein 7.3 g/dL 6.2-8. 2 Not Available [facility] ([facility]) [address] [place] [address] [place], [address], 05/17/2024 18:54:31 05/17/19 25 05/17/2024 COMP METAB OLIC PANEL albumin 4.7 g/dL 3.5-5. 0 Not Available [facility] ([facility]) [address] [place] [address] [place], [address], 05/17/2024 18:54:31 05/17/19 25 05/17/2024 COMP METAB OLIC PANEL calcium 9.1 mg/dL 8.5-10 .8 Not Available [facility] ([facility]) [address] [place] [address] [place], [address], 05/17/2024 18:54:31 05/17/19 25 05/17/2024 COMP METAB OLIC PANEL bilirubin total 1.4 mg/dL 0.2-1. 3 high Not Available [facility] ([facility]) [address] [place] [address] [place], [address], 05/17/2024 18:54:31 05/17/19 25 05/17/2024 COMP METAB OLIC PANEL AST (SGOT) 45 IU/L 17-59 Not Available [facility] ([facility]) [address] [place] [address] [place], [address], 05/17/2024 18:54:31 05/17/19 25 05/17/2024 COMP METAB OLIC PANEL ALT (SGPT) 111 IU/L 0-50 high Pleas e note new refer ence inter [place] for ALT. Due to a recen t manuf actur er metho dolog y chester e, the refer ence [place] for ALT is lower effec tive August 03, 2020. Not Available [facility] ([facility]) [address] [place] [address] [place], [address], 05/17/2024 18:54:31 05/17/19 25 05/17/2024 COMP METAB OLIC PANEL alk phosphatase 73 IU/L 38-126 Not Available [facility] ([facility]) [address] [place] [address] [place], [address], 05/17/2024 18:54:31 05/17/19 25 05/17/2024 COMP METAB OLIC PANEL note Unles s other joseph noted testi ng perfo rmed at: [facility] [address] [place] [address] Isac guthrie MD Not Available [facility] ([facility]) [address] [place] [address] [place], [address], 05/17/2024 18:54:31 05/17/19 25 05/17/2024 IRON STUDY W FE/TI BC/UI BC/%S AT iron 156 ug/dL 49-181 Not Available [facility] ([facility]) [address] [place] [address] [place], [address], 05/17/2024 19:12:42 05/17/19 25 05/17/2024 IRON STUDY W FE/TI BC/UI BC/%S AT total iron bind cap. 364 ug/dL 261-46 2 Not Available [facility] ([facility]) [address] [place] [address] [place], [address], 05/17/2024 19:12:42 05/17/19 25 05/17/2024 IRON STUDY W FE/TI BC/UI BC/%S AT unsaturated iron binding cap 208 ug/dL 150-37 5 Not Available [facility] ([facility]) [address] [place] [address] [place], [address], 05/17/2024 19:12:42 05/17/19 25 05/17/2024 IRON STUDY W FE/TI BC/UI BC/%S AT % saturation 43 % 15-55 Not Available [facility] ([facility]) [address] [place] [address] [place], [address], 05/17/2024 19:12:42 05/17/19 25 05/17/2024 IRON STUDY W FE/TI BC/UI BC/%S AT note Unlgilda s other joseph noted testi ng perfo rmed at: [facility] [address] [place] [address] Isac guthrie MD Not Available [facility]) [address] [place] [address] [place], [address], 05/17/2024 19:12:42 05/17/19 25 05/17/2024 KONSTANTIN TIN ferritin 69 NG/mL 5-244 Not Available [facility] ([facility]) [address] [place] [address] [place], [address], 05/17/2024 21:20:48 05/17/19 25 05/17/2024 KONSTANTIN TIN note Unlgilda s other joseph noted testi ng perfo rmed at: [facility] [address] [place] [address] Isac guthrie MD Not Available [facility]) [address] [place] [address] [place], [address], 05/17/2024 21:20:48 Result Notes None recorded. Problems Name Problem SNOMED Code Status Onset Date Resolution Date Notes Provider Name and Address Organization Details Recorded Time Anxiety disorder 774847268 Active Aruna Muhammad null, [place] [facility] [place] 2 13:44:20 Serum amylase (pancreatic) outside reference range 410817453 Active Aruna Muhammad null, [place] - [facility] - [facility] & [place] 2 13:44:20 Administrativ e reason for encounter 387886794 Active Aruna Muhammad null, [place] - [facility] [place] 2 13:44:20 Liver enzymes level above reference range 125480500 Active 2021 Andres Valdez PA-C [address] , [place], [address] , [place] - [facility] - [facility] & [place] 2 15:21:51 Steatosis of liver 065799712 Active 2021 Andres Valdez PA-C [address] [facility], [place], [address] , [place] - [facility] - [facility] & [place] 2 15:22:08 Fatigue 67474939 Active 2021 Andres Valdez PA-C [address] , [place], [address] , [place] - [facility] - [facility] & [place] 2 15:22:15 Serum ferritin above reference range 848440831 Active 2021 Andres Valdez PA-C [address] , [place], [address] , [place] - [facility] - [facility] & [place] 2 15:22:31 Nonalcoholic steatohepatit is 300644520 Active 2021 Andres Valdez PA-C [address], [place], [address] , [place] [facility] [place] 2 15:24:35 International normalized ratio above reference range 348900996 Active 2022 Andres Valdez PA-C [address], [place], [address] , [place] [place] 3 10:16:05 Problem Notes None recorded. Procedures Surgical History Date Name Laterality Status Provider Name and Address Organization Details Recorded Time 05/17/19 25 Venipuncture completed [place] 05/17/2024 13:50:17 03/30/20 24 Venipuncture Gastro [place]ida [place] 03/30/2024 16:27:08 01/12/20 24 Venip[place] 01/12/2024 13:48:58 10/09/19 24 Venipuncture [place]y [place]aurae [place] 10/09/2023 15:44:01 04/04/20 23 hernia repair [place]2023 15:25:31 04/14/19 04 vasectomy [place] 10/09/2023 15:26:21 04/14/19 00 operation on varicocele completed [place] 10/09/2023 15:26:06 Imaging Results None recorded. Procedure Notes None recorded. Medical Equipment None Reported. Allergies No known drug allergies Medications Name Sig Start Date Stop Date Status Note LastModified by Organization Details LastModified Time cyclobenzap rine 10 mg tablet TAKE ONE TABLET BY MOUTH EVERY DAY AT BEDTIME NEEDED FOR MUSCLE SPASMS active Not Available Not Available No t Available amoxicillin 500 mg capsule TAKE ONE CAPSULE BY MOUTH EVERY 6 HOURS FOR 7 DAYS -- FINISH ALL MEDICINE -- 08/28 completed Not Available Not Available Not Available fluconazole 100 mg tablet TAKE ONE TABLET BY MOUTH EVERY DAY 10/08 completed Not Available Not Available Not Available azithromyci n 250 mg tablet 08/28 completed Not Available Not Available Not Available hydrocodone 5 mg-acetamin ophen 325 mg tablet TAKE ONE TABLET BY MOUTH EVERY 6 HOURS NEEDED FOR post op pain MAY CAUSE DROWSINES S 10/08 completed Not Available Not Available Not Available benzonatate 100 mg capsule 08/28 completed Not Available Not Available Not Available cephalexin 500 mg capsule TAKE ONE CAPSULE BY MOUTH THREE TIMES DAILY -- FINISH ALL MEDICINE -- 10/08 completed Not Available Not Available Not Available sertraline 25 mg tablet 08/28 completed Not Available Not Available Not Available diclofenac sodium 75 mg tablet,parish yed release TAKE ONE TABLET BY MOUTH TWICE DAILY active Not Available Not Available No t Available methylpredn isolone 4 mg tablets in a dose pack FOLLOW PACKAGE DIRECTION S 08/28 completed Not Available Not Available Not Available cefdinir 300 mg capsule TAKE ONE CAPSULE BY MOUTH TWICE DAILY FOR 7 DAYS -- FINISH ALL MEDICINE -- 03/30 completed Not Available Not Available Not Available sertraline 50 mg tablet TAKE ONE TABLET BY MOUTH EVERY DAY active Not Available Not Available No t Available mometasone 0.1 % topical cream APPLY TOPICALLY TO THE AFFECTED AREA(S) EVERY DAY AT BEDTIME FOR 2 WEEKS active Not Available Not Available No t Available amoxicillin 875 mg-potassiu m clavulanate 125 mg tablet TAKE ONE TABLET BY MOUTH TWICE DAILY --TAKE WITH FOOD-- -- FINISH ALL MEDICINE -- 05/17 completed Not Available Not Available Not Available Antifungal (clotrimazo le) 1 % topical cream APPLY TOPICALLY TO THE AFFECTED AREA(S) THREE TIMES DAILY 10/08 completed Not Available Not Available Not Available diclofenac submicroniz ed 35 mg capsule Take 1 {capsule_ as_needed } 3 times a day by oral route. 08/28 completed Not Available Not Available Not Available Vitals Date Recorded Body height Body mass index (BMI) Body weight Body temperature Heart rate Oxygen saturation Oxygen saturation in Arterial blood by Pulse oximetry Heart rate Systolic blood pressure Diastolic blood pressure Provider Name and Address Organization Details Last Updated DateTime 4 180.34 cm 29.3 kg/m2 75836.8 3 g 97.9 [degF] 66 /min 98 % 98 % 65 /min 163 mm[Hg] 98 mm[Hg] Jessie Henley [place] - [facility] & [place] 4 14:09:28 Date Recorded Body height Body mass index (BMI) Body weight Body temperature Oxygen saturation Oxygen saturation in Arterial blood by Pulse oximetry Heart rate Systolic blood pressure Diastolic blood pressure Provider Name and Address Organization Details Last Updated DateTime 4 180.34 cm 29.6 kg/m2 21934.3 8 g 97.4 [degF] 96 % 96 % 67 /min 129 mm[Hg] 86 mm[Hg] Glendy Maki [place] - NT [facility] & [place] 4 15:20:22 Date Recorded Body height Body mass index (BMI) Body weight Body temperature Oxygen saturation Oxygen saturation in Arterial blood by Pulse oximetry Heart rate Systolic blood pressure Diastolic blood pressure Provider Name and Address Organization Details Last Updated DateTime 4 180.34 cm 31.4 kg/m2 152627 g 96.8 [degF] 96 % 96 % 72 /min 138 mm[Hg] 83 mm[Hg] Shahnaz Bass ND - [facility] & [place] 4 13:26:37 Date Recorded Body height Body mass index (BMI) Body weight Body temperature Oxygen saturation Oxygen saturation in Arterial blood by Pulse oximetry Heart rate Systolic blood pressure Diastolic blood pressure Provider Name and Address Organization Details Last Updated DateTime 4 180.34 cm 32.4 kg/m2 512169. 87 g 97.9 [degF] 94 % 94 % 79 /min 152 mm[Hg] 99 mm[Hg] Zenaida Mabryespie [place] - [facility] & [place] 4 15:45:59 Date Recorded Body height Body mass index (BMI) Body weight Body temperature Oxygen saturation Oxygen saturation in Arterial blood by Pulse oximetry Heart rate Systolic blood pressure Diastolic blood pressure Provider Name and Address Organization Details Last Updated DateTime 5 180.34 cm 31.9 kg/m2 607072. 65 g 96.9 [degF] 94 % 94 % 75 /min 140 mm[Hg] 85 mm[Hg] Sofiya Bolden [facility] & [place] 13:24:49 Social History Question Answer Notes LastModified by Organizat ion Details LastModified Time Tobacco Smoking Status Former Smoker Bettina boyd, CHRISTIE Elder [facility] & [place] 08/28/2022 10:39:25 Do You Have An Advance Directive? No Information not available 08/28/2022 What Is Your Level Of Alcohol Consumption? Moderate Information not available 08/28/2022 Are You Blind Or Do You Have Difficulty Seeing? No Information not available 08/28/2022 What Is Your Level Of Caffeine Consumption? Moderate Information not available 10/09/2023 When Did You Quit Smoking? 1-5yearssincel grace Information not available 10/09/2023 What Was The Date Of Your Most Recent Tobacco Screening? 01/13/2022 Information not available 08/28/2022 What Is Your Current Pack Years? 30ormorepackye ars Information not available 10/09/2023 At What Age Did You Start Smoking Tobacco? 13 Information not available 10/09/2023 Are You Passively Exposed To Smoke? No Information no t available 08/28/2022 Do You Or Have You Ever Used Smokeless Tobacco? Former Smokeless Tobacco User Information not available 08/28/2022 How Much Tobacco Do You Smoke? No Information not available 08/28/2022 Do You Feel Stressed (tense, Restless, Nervous, Or Anxious, Or Unable To Sleep At Night)? [id number] Information not available 08/28/2022 Do You Use Any Illicit Or Recreational Drugs? No Information not available 08/28/2022 How Many Years Have You Smoked Tobacco? 30 Information not available 08/28/2022 Sex: Male Functional Status Question Answer Note LastModified by Organizat ion Details LastModified Time What is your exercise level? Occasional Information not available 08/28/2022 Mental Status None recorded. Family History Relationship Description Onset Age of this Age Resolved Age Notes LastModified by Organization Details LastModified Time Father No current problems or disability prosta te cancer [email or web address] Not available 10/09/2023 15:23:04 Mother No current problems or disability CHF [email or web address] Not available 10/08 15:23:16 Medical History Condition Response Allergies/Hayfever N Allergies (Food, seasonal, environmental ) N Gout N Anxiety/Depression N Atrial Fibrillation N Thyroid Disease N Colon Cancer N Hyperthyroidism N Breast Cancer N Emphysema N Lung Disease N Hypothyroidism N COPD N Brain Tumors N Anemia N Multiple Sclerosis N Anesthesia Complications N Lung Mass N Diabetes N Autoimmune disease N Arthritis Y Blood Clot N Congestive Heart Failure (CHF) N Acid Reflux (GERD) Y Hyperlipidemia N Cancer N Back Problems Y Diverticulitis N Bladder or Kidney Problems N GERD/Reflux Y High Cholesterol N Aneurysm N Liver Disease Y Heart Disease N Arrhythmia N Fibromyalgia N Hypertension N Osteoporosis N Kidney Disease N Past Encounters Encounter ID Performer Location Encounter Start Date Encounter Closed Date Diagnosis/Indication Diagnosis SNOMED-CT Code Diagnosis ICD10 Code Diagnosis Note [id number] Andres Valdez PA-C [facility] [place] [id number] 2 01/29/2022 14:48:17 01/29/2022 15:22:38 Liver enzymes level above reference range 505686615 R74.01 Steatosis of liver 1007 K76.0 Fatigue 13896326 R53.83 Serum ferr itin above reference range 043367654 R77.8 [id number] Andres Valdez PA-C [facility] [place] [id number] 2 08/28/2022 10:18:28 08/28/2022 11:15:55 Liver enzymes level above reference range 448118221 R74.01 Steatosis of liver 1007 K76.0 Fatigue 83499272 R53.83 Serum ferr itin above reference range 029164864 R77.8 [id number] Andres Vladez PA-C [facility] [place] [address] 09/20/2022 10:41:35 09/20/2022 11:19:07 Steatosis of liver 990181307 K76.0 Serum ferr itin above reference range 276068330 R77.8 Nonalcohol ic steatohepatitis 973032717 K75.81 Liver enzy mes level above reference range 247943498 R74.01 Fatigue 15650735 R53.83 [id number] Andres Valdez PA-C [facility] [address] [address] 11/13/2022 09:12:16 11/13/2022 10:27:35 Steatosis of liver 586498817 K76.0 Serum ferr itin above reference range 642233747 R77.8 Nonalcohol ic steatohepatitis 441645761 K75.81 Fatigue 89947029 R53.83 [id number] Andres Valdez PA-C [facility] [address] [address] 03/25/2023 10:05:21 03/25/2023 10:46:36 Steatosis of liver 460638829 K76.0 Serum ferr itin above reference range 902402270 R77.8 Nonalcohol ic steatohepatitis 261400630 K75.81 Fatigue 93973957 R53.83 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 Internatio nal normalized ratio above reference range 353731468 R79.1 [id number] Anrdes Valdez PA-C [facility] [address] [address] 09/23/2023 13:47:29 09/23/2023 15:05:12 Steatosis of liver 732017853 K76.0 Serum ferr itin above reference range 214530899 R77.8 Nonalcohol ic steatohepatitis 506374619 K75.81 Fatigue 76410379 R53.83 Carrier of hemochromatosis HFE gene mutation 870142464 Z14.8 Internatio nal normalized ratio above reference range 742516252 R79.1 [id number] Kimberly Meza PA-C [facility] [place] [address] 10/09/2023 15:02:08 10/09/2023 15:49:31 Serum ferritin above reference range 262994939 R77.8 Records show patient has 1 copy of heterozygo us hemochroma tosis mutation but unable to find results in chart review.Lab s [facility] on September 23, 2023 show white blood cell count 7.2 red blood cell count 5.11 hemoglobin 16.1 hematocrit 48.3 platelet count 345740. elevated ferritin 623. Discussed with patient ordering mutation test today. Discussed therapeuti c phlebotomi es weekly to maintain a goal of ferritin less than 50 due to patient's past medical history of fatty liver disease. Will follow-up on therapeuti c phlebotomi es. Steatosis of liver 1007 K76.0 Patient has a past medical history of fatty liver disease and is currently being followed with [facility]. [id number] Kimberly Meza PA-C [facility] [address] [place] [address] 01/12/2024 13:22:26 01/12/2024 13:47:20 Serum ferritin above reference range 458698244 R77.8 Records show patient has 1 copy of heterozygo us hemochroma tosis mutation but unable to find results in chart review.Lab s [facility] on September 23, 2023 show white blood cell count 7.2 red blood cell count 5.11 hemoglobin 16.1 hematocrit 48.3 platelet count 575311. elevated ferritin 623. Discussed with patient ordering mutation test today. Discussed therapeuti c phlebotomi es weekly to maintain a goal of ferritin less than 50 due to patient's past medical history of fatty liver disease. Will follow-up on therapeuti c phlebotomi es. Steatosis of liver 1007 K76.0 Patient has a past medical history of fatty liver disease and is currently being followed with [facility]. Hereditary hemochromatosis 27450730 E83.110 Records show patient has 1 copy of heterozygo us hemochroma tosis mutation but unable to find results in chart review.Lab s [facility] on September 23, 2023 show white blood cell count 7.2 red blood cell count 5.11 hemoglobin 16.1 hematocrit 48.3 platelet count 129746. elevated ferritin 623.Luis Eduardo de la cruz presents to clinic on January 12, 2024. Patient has been doing therapeuti c phlebotomi es over in [place]. Patient tolerating them very well. Discussed ordering additional labs today will follow-up and likely continue with therapeuti c phlebotomi es when needed. [id number] Andres Valdez PA-C [facility] [address] [facility] [address] [place] [address] 03/30/2024 15:28:56 03/30/2024 16:05:39 Steatosis of liver 611486229 K76.0 Serum ferr itin above reference range 161964065 R77.8 Nonalcohol ic steatohepatitis 986270160 K75.81 Carrier of hemochromatosis HFE gene mutation 978397904 Z14.8 [id number] Kimberly Meza PA-C [facility] [place] [address] 05/17/2024 13:16:53 05/17/2024 13:46:54 Hereditary hemochromatosis 85380627 E83.110 Records show patient has 1 copy of heterozygo us hemochroma tosis mutation but unable to find results in chart review.Lab s [facility] on September 23, 2023 show white blood cell count 7.2 red blood cell count 5.11 hemoglobin 16.1 hematocrit 48.3 platelet count 006701. elevated ferritin 623.Luis Eduardo ed la cruz presents to clinic on January 12, 2024. Patient has been doing therapeuti c phlebotomi es over in [facility]. Patient tolerating them very well. Discussed ordering additional labs today will follow-up and likely continue with therapeuti c phlebotomi es when needed. Patient presents to clinic on May 17, 2024. Patient has been having therapeuti c phlebotomi es performed. Will repeat labs to evaluate if continued phlebotomi es are needed at this time. Serum ferr itin above reference range 375134001 R77.8 Records show patient has 1 copy of heterozygo us hemochroma tosis mutation but unable to find results in chart review.Lab s [facility] on September 23, 2023 show white blood cell count 7.2 red blood cell count 5.11 hemoglobin 16.1 hematocrit 48.3 platelet count 687604. elevated ferritin 623. Discussed with patient ordering mutation test today. Discussed therapeuti c phlebotomi es weekly to maintain a goal of ferritin less than 50 due to patient's past medical history of fatty liver disease. Will follow-up on lee vo. Steatosis of liver 1007 K76.0 Patient has a past medical history of fatty liver disease and is currently being followed with [facility]. Health Concerns Section Related Observation LastModified by Organization Detai ls LastModified Time None Recorded Concern Status LastModified by Organization Details LastModified Time None Recorded Advance Directives Directive N: Payers Encounter Date Sequence Insurance Name Policy Number Policy Gramajo Covered Member ID Gramajo Member ID Guarantor Name 09/23/2023 1 EAST - DOS PRIOR TO 2024 - [employer] () Tad T Ewing [id number] Tad T Ewing 10/09/2023 1 EAST - DOS PRIOR TO 2024 - [employer] () Tad T Ewing [id number] Tad T Ewing 01/12/2024 1 EAST - DOS PRIOR TO 2024 - [employer] () Tad T Ewing [id number] Tad T Ewing 03/30/2024 1 EAST - DOS PRIOR TO 2024 - [employer] () Tad T Ewing [id number] Tad T Ewing 05/17/2024 1 WEST - [employer]WEST () Tad T Ewing [id number] Tad De La Cruz Ewing Notes Date Note Type Note Provider Name and Address Organization Details Recorded Time 09/23/2023 text/html PREVIOUS (): Mr. Ewing returns to the office today regarding follow-up of elevated liver enzymes and elevated ferritin. Prior workup has been mostly indicative of hepatic steatosis. He is also a carrier for hereditary hemochromatosis. He states he has reduced his alcohol consumption by about 75% for the past few months. He is currently having 2-3 drinks on the weekends only. He has lost some weight in the process, but feels he has gained it back recently. He reports mild fatigue but is otherwise without physical complaint at this time. PREVIOUS (08/28/22): Mr. Ewing returns to the office today for follow-up regarding likely CURRAN with elevated ferritin. He is a carrier for hemochromatosis. He reports minimal alcohol consumption currently. He denies any physical complaints at this time. PREVIOUS (09/20/2022): Mr. Ewing presents via telephonic encounter today regarding elevated liver enzymes, elevated ferritin, and suspected CURRAN. Recent labs continue to show elevated transaminases. He states that he is currently drinking beer on weekends. He is unable to quantify this for me but does state that he drinks several at times. He reports minimal alcohol consumption on week days. He denies any new complaints at this time. PREVIOUS (11/13/22): Mr. Ewing presents via telephonic encounter today regarding follow-up from recent liver biopsy. This showed marked steatosis with minimal inflammation or fibrosis (grade 1, stage 0-1). No stainable iron was detected. He is feeling well at this time and denies any physical complaints. He has not yet reduced his drinking on weekends and has not yet implemented any particular diet or exercise regimen. PREVIOUS (03/25/23): Mr. 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 He is doing well overall and denies any physical complaints at this time. His weight is down 4.3 lbs since his last OV. He states he continues to drinking alcohol occasionally, but has overall reduced this over the past several months. He feels he is very active at his job, but also has extended periods of sitting while traveling for work. CURRENT (09/23/23): Mr. Ewing returns to the office today for 6 month follow-up regarding CURRAN. His weight is down 16.3 lbs over the past 6 months. He is feeling very well at this time. He is consuming a low carbohydrate, high protein diet. He reports being physically active daily through his job. He has continued moderate alcohol consumption on weekends. Andres Valdez PA-C [address], [place], [address], [facility] [place] [facility] [place] 09/23/2023 14:49:06 10/09/2023 text/html 48-year-old male presents to clinic for evaluation of elevated ferritin.Patient has a past medical history of fatty liver disease and is currently being followed with Gastroenterology. Records show patient has 1 copy of heterozygous hemochromatosis mutation but unable to find results in chart review.Labs Gastroenterology on September 23, 2023 show white blood cell count 7.2 red blood cell count 5.11 hemoglobin 16.1 hematocrit 48.3 platelet count 024816. elevated ferritin 623. Discussed with patient ordering mutation test today. Discussed therapeutic phlebotomies weekly to maintain a goal of ferritin less than 50 due to patient's past medical history of fatty liver disease. Will follow-up on therapeutic phlebotomies. [address], [place], [address], [facility] & [place] 10/09/2023 16:03:36 01/12/2024 text/html 48-year-old male presents to clinic for evaluation of elevated ferritin.Patient has a past medical history of fatty liver disease and is currently being followed with Gastroenterology. Records show patient has 1 copy of heterozygous hemochromatosis mutation but unable to find results in chart review.Labs Gastroenterology on September 23, 2023 show white blood cell count 7.2 red blood cell count 5.11 hemoglobin 16.1 hematocrit 48.3 platelet count 903517. elevated ferritin 623. Discussed with patient ordering mutation test today. Discussed therapeutic phlebotomies weekly to maintain a goal of ferritin less than 150 due to patient's past medical history of fatty liver disease. Will follow-up on therapeutic phlebotomies. Patient presents to clinic on January 12, 2024. Patient has been doing therapeutic phlebotomies over in [facility]. Patient tolerating them very well. Discussed ordering additional labs today will follow-up and likely continue with therapeutic phlebotomies when needed. Kimberly Meza PA-C [address], [place], [address], [facility] & [place] 01/12/2024 13:53:36 03/30/2024 text/html Mr. 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 He has recently established care with hematology for therapeutic phlebotomy. His ferritin level was recent at goal at less than 150. He has had a 20 lb weight gain over the past 6 months. He denies any physical complaints at this time. Andres Valdez PA-C [address], [place], [address], [facility] & [place] 03/30/2024 16:37:50 05/17/2024 text/html 49-year-old male presents to clinic for evaluation of elevated ferritin.Patient has a past medical history of fatty liver disease and is currently being followed with Gastroenterology. Records show patient has 1 copy of heterozygous hemochromatosis mutation but unable to find results in chart review.Labs Gastroenterology on September 23, 2023 show white blood cell count 7.2 red blood cell count 5.11 hemoglobin 16.1 hematocrit 48.3 platelet count 232101. elevated ferritin 623. Discussed with patient ordering mutation test today. Discussed therapeutic phlebotomies weekly to maintain a goal of ferritin less than 150 due to patient's past medical history of fatty liver disease. Will follow-up on therapeutic phlebotomies. Patient presents to clinic on January 12, 2024. Patient has been doing therapeutic phlebotomies over in [facility]. Patient tolerating them very well. Discussed ordering additional labs today will follow-up and likely continue with therapeutic phlebotomies when needed. Patient presents to clinic on May 17, 2024. Patient has been having therapeutic phlebotomies performed. Will repeat labs to evaluate if continued phlebotomies are needed at this time. Kimberly Meza PA-C [address], [place], [address], [facility] & [place] 05/17/2024 13:51:29
--- NOTE | 2024-07-23 13:04 | PC.NURSE ---
1304danis mishra quality management nurse collected labs via venipuncture stick in left ac with butterfly needle;pt to wait on results if ferritin >150 pt to have therapeutic phlebotomy
[2024-07-23 13:10] LABS: Hematocrit 44.7 % (42.0-52.0); Hemoglobin 15.3 g/dL (14.1-18.0)
[2024-07-23 13:55] LABS: Ferritin 57.5 ng/ml (17.9-464)
== END 2024-07-23 23:59 | disposition home or self-care (01) ==
LOC: INF 12:57
PROVIDERS: PCP Nurse Practitioner Family; Visit Provider Physician Assistant
DX: E83.110 Hereditary hemochromatosis (principal)
CPT/HCPCS: 82728; 85014; 85018

== ENCOUNTER 2024-08-20 12:13 | Outpatient (CLI) | payer OTHER, SELFPAY ==
--- OUTSIDE RECORDS SUMMARY | 2024-08-20 12:16 | XMS_ITS | Continuity of Care Document ---
Author Name [facility] Organization [facility] Care Team Providers Care Business Affairs Manager Name Role Phone [facility] Unavailable Unavailable Problems Combined list of problems from Department of Defense and Veterans Affairs facilities. It does not include entries that were removed or entered in error. Problem Status Onset Date Problem Type Date of Resolution Comments Source Outpatient Physician Consultation Active Condition DoD urinary stream is smaller post-void dribbling Active Condition DoD SKIN NEOPLASM EYELID Active Condition DoD REFRACTIVE ERROR - HYPERMETROPIA Active Condition DoD ASTIGMATISM Active Condition DoD UPPER RESPIRATORY INFECTION Inactive Condition [facility] visit for: pre-employment physical Active Condition DoD tobacco use Active Condition DoD ankle joint pain Active Condition DoD CHEST PAIN Active Condition DoD PALPITATIONS Active Condition DoD LATERAL EPICONDYLITIS (TENNIS ELBOW) RIGHT Active Condition DoD ANKLE SPRAIN Inactive Condition DoD deployment Active Condition DoD OPEN WOUND FINGERS LEFT RING FINGER Active Condition [facility] Patient Counseling: Active Condition DoD feared medical condition not demonstrated Active Condition DoD lump in / on the skin Active Condition DoD drowsiness [Sx] Active Condition [facility] COMMON COLD Active Condition [facility] visit for: administrative purpose 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 Member acknowledge the above information and requested a copy of his DNIFing/DQ 1042, which was provided. [facility] NICOTINE DEPENDENCE Inactive Condition Pt provided a handout on chantix and counseled on tobacco cessation. He will review this document and follow up as needed for initiation of therapy. [facility] headache Inactive Condition Pt with a hx of migraine WILLIAM previously on depakote for prophylaxis. Since July 2006 he has not taken this medication and has not had any episodes of migraine WILLIAM. He wishes to be reconsidered for flying status. His case was discussed with Dr. Greene and he should make an appointment with flight medicine for evaluation and possible return to status if possible. Pt acknowledged this plan and will follow up with them. DoD Patient Education - Injury Prevention Active Condition DoD Anticipatory Guidance: Inadequate Physical Activity Active Condition DoD Patient Education - Alcohol Active Condition DoD Food Sources For Nutrients Active Condition DoD Anticipatory Guidance: Tobacco Use Inactive Condition Pt counseled on tobacco cessation. Pt may return when ready to consider cessation for assistance. DoD LATERAL EPICONDYLITIS (TENNIS ELBOW) Active Condition Pt to try the tennis elbow strap and PT as needed. DoD LUMBAGO Active Condition 31 yo WM w ith chronic low back pain who has not tried a trial of physical therapy. Pt will try this for now and follow up after trail of PT. DoD visit for: issue repeat prescription Inactive Condition DoD visit for: services physical Active Condition DoD visit for: issue repeat prescription for medication Inactive Condition DoD visit for: issue medical certificate incapacity Inactive Condition DoD Patient Education - Dietary Inactive Condition DoD HYPERLIPIDEMIA Active Condition DoD current diet needs improvement Active Condition DoD visit for: services flight physical Inactive Condition fit for duty , reports that not actively flying DoD ALLERGIC RHINITIS Active Condition 31 yo WM with one day hx of rhinitis. Pt's PE consistent with allergic rhinitis vs acute URI. I will try him on Flonase and claritin and follow up as needed . DoD MIGRAINE HEADACHE Active Condition Pt was on Depakote to help control some of his symptoms with Migraine. He has stopped his medication and is doing OK. We will hold his medication and follow up in 4 weeks to see how his symptoms are doing. If normal I will consider a neuro evaluation so that he may be seen at Flight Medicine with a full evaluation to hopefully be considered for return to flying status. DoD visit for: laboratory Inactive Condition abnormal CBC will re check DoD Allergies, Adverse Reactions, Alerts Combined list of allergies from Department of Defense and Veterans Affairs facilities. It does not include entries that were removed or entered in error. Substance Category Reaction Severity Reaction type Status Date Reported Comments Source No Known Allergies Drug allergy (disorder) active 02/03/2013 [employer] Immunizations Combined list of available immunizations from the Department of Defense and Veterans Affairs facilities. Immunization Series Date Given Administered By Site Reaction Lot Number CVX Code Drug Shelter Advocate Status Comments Source influenza, live, intranasal, quadrivalent 2012 [id number] [employer]. (MED) complet ed influenza , live, intranasa l, quadrival ent DoD influenza virus vaccine, live, attenuated, for intranasal use 19 2011 [id number] 111 [employer] (MED) complet ed influenza virus vaccine, live, attenuate d, for intranasa l use DoD influenza virus vaccine, live, attenuated, for intranasal use 18 2010 [id number] [facility] ([facility]) complet ed influenza virus vaccine, live, attenuate d, for intranasa l use DoD influenza virus vaccine, live, attenuated, for intranasal use 1 2009 [id number] 111 [facility] (MED) complet ed influenza virus vaccine, live, attenuate d, for intranasa l use DoD hepatitis B vaccine, adult dosage 3 2009 [id number] 43 [facility] (SKB) complet ed hepatitis B vaccine, adult dosage DoD tetanus toxoid, reduced diphtheria toxoid, and acellular pertu is vaccine, adsorbed 1 2009 [id number] 115 [facility] complet ed tetanus toxoid, reduced diphtheri a toxoid, and acellular pertussis vaccine, adsorbed DoD Novel influenza-H1N 1-09, injectable 1 2009 [id number] 127 [employer]. (NOV) complet ed Novel influenza -[id number], injectabl e DoD hepatitis B vaccine, adult dosage 2 2008 [id number] 43 [facility] ([facility]) complet ed hepatitis B vaccine, adult dosage DoD anthrax vaccine 9 2008 [id number] 24 [facility] complet ed anthrax vaccine DoD hepatitis B vaccine, adult dosage 1 2008 [id number] 43 [facility] (SKB) complet ed hepatitis B vaccine, adult dosage DoD typhoid Vi capsular polysaccharid e vaccine 1 2008 [id number] 101 [employer] P[employer] ([facility]) complet ed typhoid Vi capsular polysacch aride vaccine DoD influenza virus vaccine, live, attenuated, for intranasal use 1 2008 [id number] 111 [facility] (MED) complet ed influenza virus vaccine, live, attenuate d, for intranasa l use DoD influenza virus vaccine, live, attenuated, for intranasal use 1 2007 [id number] 111 [facility] (MED) complet ed influenza virus vaccine, live, attenuate d, for intranasa l use DoD influenza virus vaccine, live, attenuated, for intranasal use 1 2006 [id number] 111 [employer] (MED) complet ed influenza virus vaccine, live, attenuate d, for intranasa l use DoD tuberculin skin test; purified protein derivative solution, intradermal 1 2006 Unknown, Provider [id number] 96 [facility] Pasteur ([facility]) complet ed tuberculi n skin test; purified protein derivativ e solution, intraderm al DoD influenza virus vaccine, split virus (incl. purified surface antigen)-reti red CODE 1 2005 [id number] 15 [facility] ([facility]) complet ed influenza virus vaccine, split virus (incl. purified surface antigen)- retired CODE DoD anthrax vaccine 9 2005 [id number] 24 [facility] ([facility]) complet ed anthrax vaccine DoD typhoid vaccine, parenteral, other than acetone-kille d, dried 1 2005 [id number] 41 [facility] ([facility]) complet ed typhoid vaccine, parentera l, other than acetone-k illed, dried DoD varicella virus vaccine 0 2005 21 () Not Given varicella virus vaccine DoD influenza virus vaccine, split virus (incl. purified surface antigen)-reti red CODE 1 2004 [id number] 15 [facility] ([facility]) complet ed influenza virus vaccine, split virus (incl. purified surface antigen)- retired CODE DoD influenza virus vaccine, whole virus 1 2004 [id number] 16 [facility] ([facility]) complet ed influenza virus vaccine, whole virus DoD influenza virus vaccine, live, attenuated, for intranasal use 1 2004 [id number] 111 [employer] (MED) complet ed influenza virus vaccine, live, attenuate d, for intranasa l use DoD influenza virus vaccine, live, attenuated, for intranasal use 0 2004 111 () complet ed influenza virus vaccine, live, attenuate d, for intranasa l use DoD anthrax vaccine 8 2003 [id number] 24 [facility] ([facility]) complet ed anthrax vaccine DoD influenza virus vaccine, whole virus 0 2002 [id number] 16 [facility] ([facility]) complet ed influenza virus vaccine, whole virus DoD vaccinia (smallpox) vaccine 0 2002 [id number] 75 [employer] (MILENA) complet ed vaccinia (smallpox ) vaccine DoD anthrax vaccine 7 2002 [id number] 24 [facility] ([facility]) complet ed anthrax vaccine DoD tuberculin skin test; purified protein derivative solution, intradermal 1 2002 Unknown, Provider [id number] 96 [employer] Pasteur ([facility]) complet ed tuberculi n skin test; purified protein derivativ e solution, intraderm al DoD meningococcal polysaccharid e vaccine (MPSV4) 0 2002 [id number] 32 [employer] Paste[employer] ([facility]) complet ed meningoco ccal polysacch aride vaccine (MPSV4) DoD influenza virus vaccine, whole virus 0 2001 [id number] 16 [employer] Paste[employer] ([facility]) complet ed influenza virus vaccine, whole virus DoD influenza virus vaccine, whole virus 0 2000 [id number] 16 [employer] P[employer] ([facility]) complet ed influenza virus vaccine, whole virus DoD typhoid Vi capsular polysaccharid e vaccine 0 2000 101 () complet ed typhoid Vi capsular polysacch aride vaccine DoD tuberculin skin test; purified protein derivative solution, intradermal 1 2000 Unknown, Provider [id number] 96 [employer] (CON) complet ed tuberculi n skin test; purified protein derivativ e solution, intraderm al DoD tuberculin skin test; purified protein derivative solution, intradermal 1 2000 Unknown, Provider [id number] 96 [employer] (CON) complet ed tuberculi n skin test; purified protein derivativ e solution, intraderm al DoD influenza virus vaccine, whole virus 0 1999 [id number] 16 [employer] (MILENA) complet ed influenza virus vaccine, whole virus DoD tetanus and diphtheria toxoids, adsorbed, preservative free, for adult use (2 Lf of tetanus toxoid and 2 Lf of diphtheria toxoid) 0 1999 09 () complet ed tetanus and diphtheri a toxoids, adsorbed, preservat arianne free, for adult use (2 Lf of tetanus toxoid and 2 Lf of diphtheri a toxoid) DoD anthrax vaccine 6 1998 [id number] 24 [facility] ([facility]) complet ed anthrax vaccine DoD influenza virus vaccine, whole virus 0 [id number] 16 [facility] ([facility]) complet ed influenza virus vaccine, whole virus DoD anthrax vaccine 5 1998 [id number] 24 [facility] ([facility]) complet ed anthrax vaccine DoD tuberculin skin test; purified protein derivative solution, intradermal 1 1998 Unknown, Provider [facility] Jonathan (INEZ) complet ed tuberculi n skin test; purified protein derivativ e solution, intraderm al DoD influenza virus vaccine, whole virus 0 [id number] 16 [facility] ([facility]) complet ed influenza virus vaccine, whole virus DoD influenza virus vaccine, whole virus 0 [id number] 16 [facility] ([facility]) complet ed influenza virus vaccine, whole virus DoD anthrax vaccine 4 1997 [id number] 24 [facility] ([facility]) complet ed anthrax vaccine [facility] influenza virus vaccine, whole virus 0 1997 16 () complet ed influenza virus vaccine, whole virus DoD anthrax vaccine 3 1997 [id number] 24 [facility] ([facility]) complet ed anthrax vaccine DoD anthrax vaccine 2 1997 FAV 020 24 [facility] ([facility]) complet ed anthrax vaccine DoD anthrax vaccine 1 1997 FAV 020 24 [facility] ([facility]) complet ed anthrax vaccine [facility] tuberculin skin test; purified protein derivative solution, intradermal 1 1997 Unknown, Provider INEZ Jonathan (INEZ) complet tuberculi n skin test; purified protein derivativ e solution, intraderm al [facility] influenza virus vaccine, whole virus 0 1996 16 () complet influenza virus vaccine, whole virus [facility] hepatitis A vaccine, adult dosage 2 1996 52 () complet hepatitis A vaccine, adult dosage DoD typhoid vaccine, parenteral, acetone-kille d, dried ([place].S. ) 2 1995 53 () complet typhoid vaccine, parentera l, acetone-k illed, dried (.S. ) DoD yellow fever vaccine 0 1995 37 () complet yellow fever vaccine [facility] trivalent poliovirus vaccine, live, oral 0 1995 02 () complet ed trivalent polioviru s vaccine, live, oral DoD measles and rubella virus vaccine 0 1995 04 () complet ed measles and rubella virus vaccine DoD tetanus and diphtheria toxoids, adsorbed, preservative free, for adult use (2 Lf of tetanus toxoid and 2 Lf of diphtheria toxoid) 0 1995 09 () complet ed tetanus and diphtheri a toxoids, adsorbed, preservat arianne free, for adult use (2 Lf of tetanus toxoid and 2 Lf of diphtheri a toxoid) DoD meningococcal polysaccharid e vaccine (MPSV4) 0 1995 32 () complet ed meningoco ccal polysacch aride vaccine (MPSV4) DoD Encounters Combined list of: 1) Encounters from Department of Veterans Affairs facilities going backup to the last 18 months, not all VA inpatient encounters are included; 2) Encounters from the Department of Defense facilities going backup to 280 months. Location Location Details Encounter Type Encounter Number Reason For Visit Attending Provider ADM Date DC Date Status Disposition Source [employer]([facility]) OUTPATIENT [id number] TO [place] 02/28 Released with Work/Duty Limitations [employer]( light Surgeon s Office) [employer]([facility]) OUTPATIENT [id number] rtfs TO PETERS 03/21 Released w/o Limitations [employer]( light Surgeon s Office) [employer]([facility]) OUTPATIENT [id number] pha TO [place] 04/11 Released w/o Limitations [employer](F light Surgeon s Office) [facility] [facility] TELE CONSULT [id number] JACKELYN Remy 04/12 [employer]( light Surgeon s Office) [employer]([facility]) OUTPATIENT [id number] dyslipi GERI Burroughs 05/08 Released w/o Limitations [employer] [facility]) [employer]([facility]) TELE CONSULT [id number] migrain e headach TO Escobar 06/26 [employer]( light Surgeon s Office) [employer]([facility]) TELE CONSULT [id number] TO Huizar 06/27 [employer]( light Surgeon s Office) [facility]) OUTPATIENT [id number] EVAL FOR MIGRAIN PARTHA EPPERSON I 10/24 Released w/o Limitations [employer](F amily Practic e) [facility]) OUTPATIENT [id number] h/a KELLY Vazquez 11/08 Released w/o Limitations [employer](F light Medicin e) [facility]) TELE CONSULT [id number] medicat ion [place] ALLLINDA AMARALENDA A 02/20 [facility] Practic [facility]) [facility]) OUTPATIENT [id number] Deploym ent PHA IAIN LEO 03/03 Released w/o Limitations [facility]( [facility]) [facility]) TELE CONSULT [id number] Needs deploym ent meds. [place] ALLCRISTIN LORENDA A 04/03 [facility] Pract[facility]) [facility]) OUTPATIENT [id number] DISCUSS CONCERN S WITH FLYING STATUS; PAIN IN ARMS AND LOWER BACK GRAND Chavo INMAN 11/24 Released w/o Limitations [facility]) [facility]) OUTPATIENT [id number] PHA/AUD IOGRAM JUNE FARRAR 03/31 Released w/o Limitations [facility]) [facility]) OUTPATIENT [id number] CONSULT ABOUT FLYING STATUS GRAND Chavo INMAN 06/11 Released w/o Limitations [facility]) [facility]) TELE CONSULT [id number] ERICK CHRISTOPHER 08/03 [facility](F light Medicin [facility]) [facility]) OUTPATIENT [id number] FLU SYMPTOM S JOLENE PALOMO 03/30 Released w/o Limitations [employer](F [facility] Practic e) [employer]([facility]) OUTPATIENT [id number] pha KIANNA NATHALIE M 04/20 Released w/o Limitations [employer](F [facility] Pract[facility]) [facility]) OUTPATIENT [id number] POSSIBL E SLEEP APNEA , PAIN ON EAR STACIAALFREDO MohanE R E 06/16 Released w/o Limitations [employer](F [facility] Practic e) [facility]) OUTPATIENT [id number] walk-in for suture check-u p STACIAJOLENE Mohan R E 07/14 Released w/o Limitations [employer](F [facility] Practic e) [facility]) OUTPATIENT [id number] SMOKING CESSATI ON STACIA, JOLENE R E 07/26 Released w/o Limitations [employer](F [facility] Practic [facility]) [facility]) TELE CONSULT [id number] 72HR/LA B RESULTS LESLEY BOYD 08/09 [facility] Pract[facility]) [facility]) OUTPATIENT [id number] PHA OSWALDO GUERRERO L 03/02 Released w/o Limitations [employer](F [facility] Practic [facility]) [facility]) OUTPATIENT [id number] BW/CW ANDRESSA HILLIARD 03/20 Released w/o Limitations [employer] [facility](F [facility] Pract[facility]) [facility] OUTPATIENT [id number] 05/03 Released w/o Limitations [facility] OUTPATIENT [id number] 08/23 Released w/o Limitations [facility] OUTPATIENT [id number] 08/25 Released w/o Limitations [facility] OUTPATIENT [id number] 09/28 Released w/o Limitations [facility]) OUTPATIENT [id number] Post Deploym ent CORINA SIMENTAL 10/31 Released w/o Limitations [employer](F amily Practic e) [facility]) OUTPATIENT [id number] RIGHT TENNIS ELBOW AND RIGHT ANKLE SPRAIN JAMIL CHRISTIE 01/02 Released w/o Limitations [employer](F [facility] Practic e) [employer]([facility]) TELE CONSULT [id number] Pt with xray results receive SACHIN Cormier 01/05 Referred for Appointment [employer] [facility](F [facility]ily Practic e) [employer]([facility]) OUTPATIENT [id number] SARMAD Sanchez 02/13 Released w/o Limitations [employer](F [facility]ily Practic e) [employer]([facility]) TELE CONSULT [id number] 72HR/NU RSE TCSACHIN DAVIDSON 04/03 Referred for Appointment [employer] [facility](F amily Practic e) [employer]([facility]) OUTPATIENT [id number] DISCUSS CHEST SITUATI ON DENELSBECK , JAMIL R 04/05 Released w/o Limitations [employer](F [facility]ily Practic e) [facility]) TELE CONSULT [id number] 72HR/NU RSE TCON DENELSBECK , JAMIL R 04/26 [employer](F [facility]ily Practic e) [employer]([facility]) TELE CONSULT [id number] sheldon r SACHIN JASSO 05/03 Referred for Appointment [employer] [facility](F [facility]ily Practic e) [employer]([facility]) OUTPATIENT [id number] F/U HEART PALPATI ONS DENELSBECK , JAMIL R 05/10 Released w/o Limitations [employer](F [facility]ily Practic e) [employer]([facility]) TELE CONSULT [id number] MRI results receive SACHIN Cormier 05/23 Referred for Appointment [employer] [facility](F [facility]ily Practic e) [employer]([facility]) OUTPATIENT [id number] tracie margarita in CECILY Carreon 02/20 Released w/o Limitations [employer]([facility]) [employer]([facility]) OUTPATIENT [id number] MELQUIADES PINTO 03/15 Released w/o Limitations [employer] [facility] [employer] [facility] [id number] heart beat fast and hard MELQUIADES BAEZ 12/19 Released w/o Limitations [employer]( [facility]) [employer]([facility] sical [facility] Assess[facility] t) OUTPATIENT [id number] ANTONIA ADELA VÁSQUEZSANTA 02/25 Released w/o Limitations [employer](P hysical Health Assessm ent) [employer]([facility]) OUTPATIENT [id number] Notes Entered by: Grupo ADAMS 21 Sep 2012 0727 ------- ------- ------- ------- -- Chills/ Hot flashes /cough x5days ZOILA CINTRON 09/21 Released w/o Limitations [employer]([facility]) [employer]([facility]) OUTPATIENT [id number] AMNSOOR Paez 01/04 Released w/o Limitations [employer](O ptometr y Clinic) [employer] OUTPATIENT [id number] Would like to quit smoking with patches only, sent to clinic by MARCO CARIAS ROBERT J 02/03 Released w/o Limitations [employer]( [facility]) [employer] TELE CONSULT [id number] Notes Entered by: CECILY LARA 01 Mar 2013 0745 ------- ------- ------- ------- -- OME refCECILY Cook 03/01 [employer] [facility]( [facility] [employer] OUTPATIENT [id number] SANDY METZ 03/22 Released w/o Limitations [employer]( [facility] [employer]([facility]) TELE CONSULT [id number] Notes Entered by: YANNICK VIEIRA 28 Apr 2013 1211 ------- ------- ------- ------- -- Network Results - Urology - 014 SANDY POPE [place] 04/28 [employer]([facility]) [employer]([facility]) OUTPATIENT [id number] burning sensati on in throat that woke pt up SANDY POPE [place] 07/29 Released w/o Limitations [employer]([facility]) [employer]([facility] [employer]) OUTPATIENT [id number] retirme nt physica l ADELIAMick SANDY [place] 08/26 Released w/o Limitations [employer]([facility] [employer]) Procedures Combined list of: 1) Procedures from Department of Veterans Affairs facilities going back up to thelast 18 months, not all VA non-surgical procedures are included; 2) All procedures from the Department of Defense facilities. Procedure Procedure Type Code Date Perfomer Comments Sourc e FITTING OF SPECTACLES, EXCEPT FOR APHAKIA; MONOFOCAL 3 DoD ELECTROCARDIOGRAM, ROUTINE ECG WITH AT LEAST 12 LEADS; WITH INTERPRETATION AND REPORT 2 DoD MEDICAL NUTRITION THERAPY; GROUP (2 OR MORE INDIVIDUAL(S)), EACH 30 MINUTES 6 DoD VASECTOMY, UNILATERAL OR BILATERAL (SEPARATE PROCEDURE), INCLUDING POSTOPERATIVE SEMEN EXAM(S) 4 DoD ELECTROCARDIOGRAM, ROUTINE ECG WITH AT LEAST 12 LEADS; INTERPRETATION AND REPORT ONLY 4 DoD SCREENING TEST OF VISUAL ACUITY, QUANTITATIVE, BILATERAL 4 DoD DETERMINATION OF REFRACTIVE STATE 4 DoD NONINVASIVE EAR OR PULSE OXIMETRY FOR OXYGEN SATURATION; SINGLE DETERMINATION 2 DoD PURE TONE AUDIOMETRY (THRESHOLD); AIR ONLY 9 DoD PURE TONE AUDIOMETRY (THRESHOLD); AIR ONLY 9 DoD PURE TONE AUDIOMETRY (THRESHOLD); AIR ONLY 6 DoD REPAIR, COMPLEX, TRUNK; 1.1 CM TO 2.5 CM 0 DoD [employer] Fitting Monofocals (Not For Aphakia) [employer] Fitting Monofocals (Not For Aphakia) [id number] 3 MANSOOR DIAZ DoD Determination Of Refractive State Determination Of Refractive State [id number] 3 MANSOOR DIAZ Ophthalmological New Patient Start Comprehensive Care Ophthalmological New Patient Start Comprehensive Care [id number] 3 MANSOOR DIAZ. [facility] ECG 12-Lead With Interpretation And Report ECG 12-Lead With Interpretation And Report [id number] 2 MELQUIADES BAEZ [place] ECG 12-Lead With Interpretation And Report ECG 12-Lead With Interpretation And Report [id number] 0 JAMIL CHRISTIE Elbow orthosis, elastic, prefabricated, includes fitting and adjustment (e.g., neoprene, Lycra) 0 JAMIL CHRISTIE Threshold Audiogram (Pure Tone) Threshold Audiogram (Pure Tone) [id number] 9 OSWALDO GUERRERO [facility] Screening Test Of Visual Acuity, Quantitative, Bilateral Screening Test Of Visual Acuity, Quantitative, Bilateral 12244 9 NATHALIE HUTCHISON [facility] Threshold Audiogram (Pure Tone) Threshold Audiogram (Pure Tone) 95316 9 NATHALIE HUTCHISON [facility] Threshold Audiogram (Pure Tone) Threshold Audiogram (Pure Tone) 60364 7 RAMANDEEP GALINDO K [facility] Threshold Audiogram (Pure Tone) Threshold Audiogram (Pure Tone) 41735 6 IAIN LEO [facility] (2 or More Individual(s)) [facility] (2 or More Individual(s)) 96367 6 GERI VEGA [facility] Social History Combined list of available smoking, tobacco, and other social history from Department of Defense and Veterans Affairs facilities. Social History Type Response Date Comment Sour e This section is an empty social history section. DoD
--- OUTSIDE RECORDS SUMMARY | 2024-08-20 12:16 | XMS_ITS | Data Portability ---
Author Organization [place] - [facility] [place] [facility] ADMIN Address [address] [place] [id number] Care Team Providers Care Gas Distribution Supervisor Name Role Phone SATHISH SIERRA Primary Care Provider [phone] Assessment Encounter Date Assessment Date Assessment LastModified [...] may be of benefit. Follow-up 6 months [email or web address] Not available 09/23/2023 14:47:08 03/30/2024 03/30/2024 48 [...] at goal of <150. Follow-up 6 months [email or web address] Not available 03/30/2024 16:37:05 Plan of Treatment Reminders Order Date Submit Date Provider Last Modified By Organization Details Last Modified Time Details Appointments Establish ed Visit 15 min 2024 02:30P M Andres Valdez PA-C Not available Not available Not available OV EST 30 2024 01:00P M Kimberly Meza PA-C Not available Not available Not available Lab CBC w/ auto diff 2024 025 [facility] (Lab Registration) , [address] [place] [address] [place], [address], 05/24/2024 07:59:21 iron + TIBC + ferritin, serum 2024 025 [facility] (Lab Registration) , [address] [place] [address] [place], [address], 05/24/2024 07:59:21 iron saturatio n, serum 2024 025 [facility] (Lab Registration) , [address] [place] [address] [place], [address], 05/24/2024 07:59:21 CMP, serum or plasma 2024 025 [email or web address] (Lab Registration) , [address] [place] [address] [place], [address], 05/24/2024 07:59:21 CBC 2023 024 [facility], [address], [address], [place], [address], 04/03/2024 16:10:08 hepatic function panel, serum 2023 024 [facility], [address], [address], [place], [address], 04/03/2024 16:10:09 PT/INR 2023 024 [facility], [address], [address], [place], [address], 04/03/2024 16:10:10 liver fibrosis score, calculate d by ELF, serum or plasma 2023 024 [facility], [address], [address], [place], [address], 04/03/2024 16:10:11 ferritin, serum or plasma 2023 024 [facility], [address], [address], [place], [address], 04/03/2024 16:10:12 CBC w/ auto diff 2023 024 [email or web address] [facility] (Lab Registration) , [address] [place] [address] [place], [address], 01/19/2024 15:52:09 iron + TIBC + ferritin, serum 2023 024 [email or web address] [facility] (Lab Registration) , [address] [place] [address] [place], [address], 01/19/2024 15:52:10 iron saturatio n, serum [email or web address] [facility] (Lab Registration) , [address] [place] [address] [place], [address], 01/19/2024 15:52:10 CMP, serum or plasma [address] [facility] [address] [facility] (Lab Registration) , [address] [place] [address] [place], [address], 01/19/2024 15:52:10 hemochrom atosis mutation (hfe), blood/tis qamar 2023 024 [facility] (Lab Registration) , [address] [place] [address] [place], [address], 11/04/2023 15:13:14 CBC 2023 024 [facility], [address], [address], [place], [address], 09/24/2023 16:15:43 hepatic function panel, serum 2023 024 [facility], [address], [address], [place], [address], 09/24/2023 16:15:44 PT/INR 2023 024 [place], [address], [address], [place], [address], 09/24/2023 16:15:45 ferritin, serum or plasma 2023 024 [facility], [address], [address], [place], [address], 09/24/2023 16:15:46 Referral None recorded. Procedures None [...] x10e3 /uL 3.4-10 .8 Not Available [facility] ([facility]) [address] [place], [address], 09/24/2023 16:15:43 09/23/19 24 09/24/2023 CBC, PLATE LET, NO DIFFE RENTI AL RBC 5.11 x10e6 /uL 4.14-5 .80 Not Available [facility] ([facility]) [address] [place], [address], 09/24/2023 16:15:43 09/23/19 24 09/24/2023 CBC, PLATE LET, NO DIFFE RENTI AL hemoglobin 16.1 g/dL 13.0-1 7.7 Not Available [facility] ([facility]) [address] [place], [address], 09/24/2023 16:15:43 09/23/19 24 09/24/2023 CBC, PLATE LET, NO DIFFE RENTI AL hematocrit 48.3 % 37.5-5 1.0 Not Available [facility] ([facility]) [address] [place], [address], 09/24/2023 16:15:43 09/23/19 24 09/24/2023 CBC, PLATE LET, NO DIFFE RENTI AL MCV 95 fL 79-97 Not Available [facility] ([facility]) [address] [place], [address], 09/24/2023 16:15:43 09/23/19 24 09/24/2023 CBC, PLATE LET, NO DIFFE RENTI AL MCH 31.5 pg 26.6-3 3.0 Not Available [facility] ([facility]) [address] [place], [address], 09/24/2023 16:15:43 09/23/19 24 09/24/2023 CBC, PLATE LET, NO DIFFE RENTI AL MCHC 33.3 g/dL 31.5-3 5.7 Not Available [facility] ([facility]) [address] [facility], [place], [address], 09/24/2023 16:15:43 09/23/19 24 09/24/2023 CBC, PLATE LET, NO DIFFE RENTI AL RDW 12.4 % 11.6-1 5.4 Not Available [facility] ([facility]) [address] [facility], [place], [address], 09/24/2023 16:15:43 09/23/19 24 09/24/2023 CBC, PLATE LET, NO DIFFE RENTI AL platelets 320 x10e3 /uL 150-45 0 Not Available [facility] ([facility]) [address] [facility], [place], [address], 09/24/2023 16:15:43 09/23/19 24 09/24/2023 CBC, PLATE LET, NO DIFFE RENTI AL NRBC SPOUT LINER HELPER Not Available [facility] ([facility]) [address] [facility], [place], [address], 09/24/2023 16:15:43 09/23/19 24 09/24/2023 HEPAT IC FUNCT ION PANEL (7) protein, total 7.2 g/dL 6.0-8. 5 Not Available [facility] ([facility]) [address] [facility], [place], [address], 09/24/2023 16:15:44 09/23/19 24 09/24/2023 HEPAT IC FUNCT ION PANEL (7) albumin 5.1 g/dL 4.1-5. 1 Not Available [facility] ([facility]) [address] [facility], [place], [address], 09/24/2023 16:15:44 09/23/19 24 09/24/2023 HEPAT IC FUNCT ION PANEL (7) bilirubin, total 1.6 mg/dL 0.0-1. 2 above high normal Not Available [facility] ([facility]) [address] [facility], [place], [address], 09/24/2023 16:15:44 09/23/19 24 09/24/2023 HEPAT IC FUNCT ION PANEL (7) bilirubin, direct 0.29 mg/dL 0.00-0 .40 Not Available [facility] ([facility]) [address] [place], [address], 09/24/2023 16:15:44 09/23/19 24 09/24/2023 HEPAT IC FUNCT ION PANEL (7) alkaline phosphatase 105 IU/L 44-121 Not Available [facility] ([facility]) [address] [place], [address], 09/24/2023 16:15:44 09/23/19 24 09/24/2023 HEPAT IC FUNCT ION PANEL (7) AST (SGOT) 33 IU/L 0-40 Not Available [facility] ([facility]) [address] [place], [address], 09/24/2023 16:15:44 09/23/19 24 09/24/2023 HEPAT IC FUNCT ION PANEL (7) ALT (SGPT) 62 IU/L 0-44 above high normal Not Available [facility] ([facility]) [address] [place], [address], 09/24/2023 16:15:44 09/23/19 24 09/24/2023 PROTH ROMBI [...] range 2.5 - 3.5 Not Available [facility] ([facility]) [address] [facility], [place], [address], 09/24/2023 16:15:45 09/23/19 24 09/24/2023 PROTH ROMBI N TIME (PT), SERIA L prothrombin time 11.2 sec 9.1-12 .0 Not Available [facility] ([facility]) [address] [place], [address], 09/24/2023 16:15:45 09/23/19 24 09/24/2023 PROTH ROMBI N TIME (PT), SERIA L pdf . Not Available [facility] ([facility]) [address] [place], [address], 09/24/2023 16:15:45 09/23/19 24 09/24/2023 KONSTANTIN TIN ferritin 623 NG/mL 30-400 above high normal Not Available [facility] ([facility]) [address] [place], [address], 09/24/2023 16:15:46 10/09/19 24 10/09/2023 HERED ITARY HEMOC HROMA TOSIS note Unles s other joseph noted testi ng perfo [facility]med at[facility] [address] [place] [address] Isac guthrie MD Not Available [facility] (Pre-Op Clinic) [address] [place] [address] [place], [address], 11/04/2023 15:13:14 10/09/19 24 11/04/2023 HERED ITARY [...] ders to discu ss resul ts at [phone] [phone] ([phone] ). . Test Detai ls: Three varia nts kaylin zed: c.845 G>A (p.Cy s282T yr), commo nly refer red to as C282Y c.187 C>G (p.Hi s63As p), commo nly refer red to as H63D c.193 A>T (p.Se r65Cy s), commo nly refer red to as S65C . Metho ds/Li mitat ions: DNA Kaylin sis of the HFE gene ([id number]) was perfo rmed by PCR ampli [...] e salas cteri stics deter mined by [employer]. It has not been clear ed [...] 3. doi: 10.10 / p.243 30. PMID: 68003 290; PMCID : PMC31 40520 . Shila G, King ot P, Moreno [...] hg.20 15.12 8. Epub 2014 8. PMID: 77184 218; PMCID : PMC49 37482 . Not Available [facility] (Pre-Op Clinic) [address] [place] [address] [place], [address], 11/04/2023 15:13:14 10/09/19 24 11/04/2023 HERED ITARY HEMOC HROMA TOSIS reviewed by: ELIZABETH Brito , PhD FAC Perfo rmed at: - [facility] [address] [facility] , [place] [address] Lab Direc tor: Kole Toledo [facility] , Phone : [phone] Not Available [facility] (Pre-Op Clinic) [address] [place] [address] [place], [address], 11/04/2023 15:13:14 01/12/20 24 01/12/2024 CBC W/ AUTO DIFF WBC 5.84 K/uL 4.5-11 .5 Not Available [facility] (Pre-Op Clinic) [address] [place] [address] [place], [address], 01/12/2024 14:36:35 01/12/20 24 01/12/2024 CBC W/ AUTO DIFF RBC 4.19 M/uL 4.0-5. 4 Not Available [facility] (Pre-Op Clinic) [address] [place] [address] [place], [address], 01/12/2024 14:36:35 01/12/20 24 01/12/2024 CBC W/ AUTO DIFF HGB 14.0 g/dL 14.0-1 8.0 Not Available [facility] (Pre-Op Clinic) [address] [place] [address] [place], [address], 01/12/2024 14:36:35 01/12/20 24 01/12/2024 CBC W/ AUTO DIFF HCT 40.5 % 40-54 Not Available [facility] (Pre-Op Clinic) [address] [place] [address] [place], [address], 01/12/2024 14:36:35 01/12/20 24 01/12/2024 CBC W/ AUTO DIFF MCV 96.7 fL 80.0-1 00.0 Not Available [facility] (Pre-Op Clinic) [address] [place] [address] [place], [address], 01/12/2024 14:36:35 01/12/20 24 01/12/2024 CBC W/ AUTO DIFF MCH 33.4 pg 26.0-3 2.0 high Not Available [facility] (Pre-Op Clinic) [address] [place] [address] [place], [address], 01/12/2024 14:36:35 01/12/20 24 01/12/2024 CBC W/ AUTO DIFF MCHC 34.6 g/dL 32.0-3 6.0 Not Available [facility] (Pre-Op Clinic) [address] [place] [address] [place], [address], 01/12/2024 14:36:35 01/12/20 24 01/12/2024 CBC W/ AUTO DIFF RDW 13.0 % 11.5-1 4.5 Not Available [facility] (Pre[facility]Op Clinic) [address] [place] [address] [place], [address], 01/12/2024 14:36:35 01/12/20 24 01/12/2024 CBC W/ AUTO DIFF platelet count 287 K/uL 142-42 4 Not Available [facility] (Pre-Op Clinic) [address] [place] [address] [place], [address], 01/12/2024 14:36:35 01/12/20 24 01/12/2024 CBC W/ AUTO DIFF MPV 10.0 fL 6.8-10 .2 Not Available [facility] (Pre-Op Clinic) [address] [place] [address] [place], [address], 01/12/2024 14:36:35 01/12/20 24 01/12/2024 CBC W/ AUTO DIFF neutrophil % 63.2 % 50-70 Not Available [facility] (Pre-Op Clinic) [address] [place] [address] [place], [address], 01/12/2024 14:36:35 01/12/20 24 01/12/2024 CBC W/ AUTO DIFF lymphocyte % 24.7 % 18.0-4 2.0 Not Available [facility] (Pre-Op Clinic) [address] [place] [address] [place], [address], 01/12/2024 14:36:35 01/12/20 24 01/12/2024 CBC W/ AUTO DIFF monocyte % 8.7 % 2.0-11 .0 Not Available [facility] (Pre-Op Clinic) [address] [place] [address] [place], [address], 01/12/2024 14:36:35 01/12/20 24 01/12/2024 CBC W/ AUTO DIFF eosinophil % 2.2 % 1.0-3. 0 Not Available [facility] (Pre-Op Clinic) [address] [place] [address] [place], [address], 01/12/2024 14:36:35 01/12/20 24 01/12/2024 CBC W/ AUTO DIFF basophil % 0.5 % 0.0-2. 0 Not Available [facility] (Pre-Op Clinic) [address] [facility] [place], [address], 01/12/2024 14:36:35 01/12/20 24 01/12/2024 CBC W/ AUTO DIFF immature granulocytes % 0.7 % 0.0-0. 8 Not Available [facility] (Pre-Op Clinic) [address] [place] [address] [place], [address], 01/12/2024 14:36:35 01/12/20 24 01/12/2024 CBC W/ AUTO DIFF nucleated red blood cells % 0.0 % Not Available [facility] (Pre-Op Clinic) [address] [facility] [place], [address], 01/12/2024 14:36:35 01/12/20 24 01/12/2024 CBC W/ AUTO DIFF neutrophil # 3.69 K/uL Not Available [facility] (Pre-Op Clinic) [address] [facility] [place], [address], 01/12/2024 14:36:35 01/12/20 24 01/12/2024 CBC W/ AUTO DIFF lymphocyte # 1.44 K/uL Not Available [facility] (Pre-Op Clinic) [address] [facility] [place], [address], 01/12/2024 14:36:35 01/12/20 24 01/12/2024 CBC W/ AUTO DIFF monocyte # 0.51 K/uL Not Available [facility] (Pre-Op Clinic) [address] [facility] [place], [address], 01/12/2024 14:36:35 01/12/20 24 01/12/2024 CBC W/ AUTO DIFF eosinophil # 0.13 K/uL Not Available [facility] (Pre-Op Clinic) [address] [place] [address] [place], [address], 01/12/2024 14:36:35 01/12/20 24 01/12/2024 CBC W/ AUTO DIFF basophil # 0.03 K/uL Not Available [facility] (Pre-Op Clinic) [address] [place] [address] [place], [address], 01/12/2024 14:36:35 01/12/20 24 01/12/2024 CBC W/ AUTO DIFF immature gramulocytes # 0.04 K/uL Not Available [facility] (Pre-Op Clinic) [address] [place] [address] [place], [address], 01/12/2024 14:36:35 01/12/20 24 01/12/2024 CBC W/ AUTO DIFF nucleated red blood cells # 0.00 k/uL Not Available [facility] (Pre-Op Clinic) [address] [place] [address] [place], [address], 01/12/2024 14:36:35 01/12/20 24 01/12/2024 CBC W/ AUTO DIFF manual differential NO Not Available [facility] (Pre-Op Clinic) [address] [place] [address] [place], [address], 01/12/2024 14:36:35 01/12/20 24 01/12/2024 CBC W/ AUTO DIFF note Unles s other joseph noted testi ng perfo rmed at: [facility] [address] [place] [address] Isac guthrie MD Not Available [facility] (Pre-Op Clinic) [address] [place] [address] [place] [address], 01/12/2024 14:36:35 01/12/20 24 01/12/2024 COMP METAB OLIC PANEL sodium 144 mmol/ L 137-14 7 Not Available [facility] (Pre-Op Clinic) [address] [place] [address] [place], [address], 01/12/2024 15:06:19 01/12/20 24 01/12/2024 COMP METAB OLIC PANEL potassium 4.2 mmol/ L 3.5-5. 1 Not Available [facility] (Pre-Op Clinic) [address] [facility] [place], [address], 01/12/2024 15:06:19 01/12/20 24 01/12/2024 COMP METAB OLIC PANEL chloride 106 mmol/ L 98-110 Not Available [facility] (Pre-Op Clinic) [address] [facility] [place], [address], 01/12/2024 15:06:19 01/12/20 24 01/12/2024 COMP METAB OLIC PANEL carbon dioxide 24 mmol/ L 21-30 Not Available [facility] (Pre-Op Clinic) [address] [place] [address] [place], [address], 01/12/2024 15:06:19 01/12/20 24 01/12/2024 COMP METAB OLIC PANEL anion gap 14 mmol/ L 6-14 Not Available [facility] (Pre-Op Clinic) [address] [place] [address] [place], [address], 01/12/2024 15:06:19 01/12/20 24 01/12/2024 COMP METAB OLIC PANEL glucose 97 mg/dL 70-115 Not Available [facility] (Pre-Op Clinic) [address] [place] [address] [place], [address], 01/12/2024 15:06:19 01/12/20 24 01/12/2024 COMP METAB OLIC PANEL BUN 20 mg/dL 9-20 Not Available [facility] (Pre[facility]Op [facility]) [address] [place] [address] [place], [address], 01/12/2024 15:06:19 01/12/20 24 01/12/2024 COMP METAB OLIC PANEL creatinine 1.1 mg/dL 0.5-1. 5 Not Available [facility] (Pre[facility]Op [facility]) [address] [place] [address] [place], [address], 01/12/2024 15:06:19 01/12/20 24 01/12/2024 COMP METAB OLIC PANEL BUN/creatini ne ratio 18 ratio 10-20 Not Available [facility] (Pre-Op [facility]) [address] [place] [address] [place], [address], 01/12/2024 15:06:19 01/12/20 24 01/12/2024 COMP METAB [...] chester ing kiney funct ion. Not Available [facility] (Pre-Op [facility]) [address] [place] [address] [place], [address], 01/12/2024 15:06:19 01/12/20 24 01/12/2024 COMP METAB OLIC PANEL osmolality (calculated) 302 mosmo l/kg 275-30 1 high OSMOL ALITY IS A CALCU LATIO N UTILI ZING THE SERUM /PLAS MA SODIU M, GLUCO SE AND UREA NITRO GEN (BUN) LEVEL S. FOR THE MOST ACCUR ATE RESUL T A MEASU RED SERUM OSMOL ALITY IS SUGGE STED. Not Available [facility] (Pre-Op Clinic) [address] [place] [address] [place], [address], 01/12/2024 15:06:19 01/12/20 24 01/12/2024 COMP METAB OLIC PANEL total protein 7.0 g/dL 6.2-8. 2 Not Available [facility] (Pre-Op Clinic) [address] [place] [address] [place], [address], 01/12/2024 15:06:19 01/12/20 24 01/12/2024 COMP METAB OLIC PANEL albumin 4.6 g/dL 3.5-5. 0 Not Available [facility] (Pre[facility]Op [facility]) [address] [place] [address] [place], [address], 01/12/2024 15:06:19 01/12/20 24 01/12/2024 COMP METAB OLIC PANEL calcium 9.0 mg/dL 8.5-10 .8 Not Available [facility] (Pre[facility]Op [facility]) [address] [place] [address] [place], [address], 01/12/2024 15:06:19 01/12/20 24 01/12/2024 COMP METAB OLIC PANEL bilirubin total 1.3 mg/dL 0.2-1. 3 Not Available [facility] (Pre-Op Clinic) [address] [place] [address] [place], [address], 01/12/2024 15:06:19 01/12/20 24 01/12/2024 COMP METAB OLIC PANEL AST (SGOT) 41 IU/L 17-59 Not Available [facility] (Pre-Op Clinic) [address] [place] [address] [place], [address], 01/12/2024 15:06:19 01/12/20 24 01/12/2024 COMP METAB OLIC PANEL ALT (SGPT) 78 IU/L 0-50 high Pleas e note new refer ence [place] for ALT. Due to a recen t manuf actur er metho dolog y chester e, the refer ence [place] for ALT is lower effec tive August 03, 2020. Not Available [facility] (Pre[facility]Op [facility]) [address] [place] [address] [place], [address], 01/12/2024 15:06:19 01/12/2001/12/2024 COMP METAB OLIC PANEL alk phosphatase 64 IU/L 38-126 Not Available [facility] (Pre-Op Clinic) [address] [place] [address] [place], [address], 01/12/2024 15:06:19 01/12/20 24 01/12/2024 COMP METAB OLIC PANEL note Unles s other joseph noted testi ng perfo rmed at: [facility] [address] [place] [address] Isac guthrie MD Not Available [facility] (Pre[facility]Op [facility]) [address] [place] [address] [place], [address], 01/12/2024 15:06:19 01/12/20 24 01/12/2024 IRON STUDY W FE/TI BC/UI BC/%S AT iron 124 ug/dL 49-181 Not Available [facility] (Pre-Op [facility]) [address] [place] [address] [place], [address], 01/12/2024 15:12:02 01/12/20 24 01/12/2024 IRON STUDY W FE/TI BC/UI BC/%S AT total iron bind cap. 416 ug/dL 261-46 2 Not Available [facility] (Pre-Op Clinic) [address] [place] [address] [place], [address], 01/12/2024 15:12:02 01/12/20 24 01/12/2024 IRON STUDY W FE/TI BC/UI BC/%S AT unsaturated iron binding cap 292 ug/dL 150-37 5 Not Available [facility] (Pre-Op [facility]) [address] [place] [address] [place], [address], 01/12/2024 15:12:02 01/12/20 24 01/12/2024 IRON STUDY W FE/TI BC/UI BC/%S AT % saturation 30 % 15-55 Not Available [facility] (Pre[facility]Op [facility]) [address] [place] [address] [place], [address], 01/12/2024 15:12:02 01/12/20 24 01/12/2024 IRON STUDY W FE/TI BC/UI BC/%S AT note Unles s other joseph noted testi ng perfo rmed at: [facility] [address] [place] [address] Isac guthrie MD Not Available [facility] (Pre-Op [facility]) [address] [facility] [place], [address], 01/12/2024 15:12:02 01/12/20 24 01/12/2024 KONSTANTIN TIN ferritin 118 NG/mL 5-244 Not Available [facility] (Pre-Op [facility]) [address] [place] [address] [place], [address], 01/12/2024 15:39:15 01/12/20 24 01/12/2024 KONSTANTIN TIN note Unles s other joseph noted testi ng perfo rmed at: [facility] [address] [place] [address] Isac guthrie MD Not Available [facility] (Pre-Op Clinic) [address] [place] [address] [place], [address], 01/12/2024 15:39:15 03/30/20 24 03/31/2024 CBC, PLATE LET, NO DIFFE RENTI AL WBC 6.2 x10e3 /uL 3.4-10 .8 normal Not Available [facility] ([facility]) [address] [place], [address], 04/03/2024 16:10:08 03/30/20 24 03/31/2024 CBC, PLATE LET, NO DIFFE RENTI AL RBC 4.86 x10e6 /uL 4.14-5 .80 normal Not Available [facility] ([facility]) [address] [place], [address], 04/03/2024 16:10:08 03/30/20 24 03/31/2024 CBC, PLATE LET, NO DIFFE RENTI AL hemoglobin 15.1 g/dL 13.0-1 7.7 normal Not Available [facility] ([facility]) [address] [place], [address], 04/03/2024 16:10:08 03/30/20 24 03/31/2024 CBC, PLATE LET, NO DIFFE RENTI AL hematocrit 45.4 % 37.5-5 1.0 normal Not Available [facility] ([facility]) [address] [facility], [place], [address], 04/03/2024 16:10:08 03/30/20 24 03/31/2024 CBC, PLATE LET, NO DIFFE RENTI AL MCV 93 fL 79-97 normal Not Available [facility] ([facility]) [address] [facility], [place], [address], 04/03/2024 16:10:08 03/30/20 24 03/31/2024 CBC, PLATE LET, NO DIFFE RENTI AL MCH 31.1 pg 26.6-3 3.0 normal Not Available [facility] ([facility]) [address] [facility], [place], [address], 04/03/2024 16:10:08 03/30/20 24 03/31/2024 CBC, PLATE LET, NO DIFFE RENTI AL MCHC 33.3 g/dL 31.5-3 5.7 normal Not Available [facility] ([facility]) [address] [facility], [place], [address], 04/03/2024 16:10:08 03/30/20 24 03/31/2024 CBC, PLATE LET, NO DIFFE RENTI AL RDW 12.2 % 11.6-1 5.4 Not Available [facility] ([facility]) [address] [facility], [place], [address], 04/03/2024 16:10:08 03/30/20 24 03/31/2024 CBC, PLATE LET, NO DIFFE RENTI AL platelets 291 x10e3 /uL 150-45 0 normal Not Available [facility] ([facility]) [address] [facility], [place], [address], 04/03/2024 16:10:08 03/30/20 24 03/31/2024 CBC, PLATE LET, NO DIFFE RENTI AL NRBC SPOUT LINER HELPER Not Available [facility] ([facility]) [address] [facility], [place], [address], 04/03/2024 16:10:08 03/30/20 24 03/31/2024 HEPAT IC FUNCT ION PANEL (7) protein, total 6.8 g/dL 6.0-8. 5 normal Not Available [facility] ([facility]) [address] [facility], [address], 04/03/2024 16:10:09 03/30/20 24 03/31/2024 HEPAT IC FUNCT ION PANEL (7) albumin 4.8 g/dL 4.1-5. 1 normal Not Available [facility] ([facility]) [address] [facility], [place], [address], 04/03/2024 16:10:09 03/30/20 24 03/31/2024 HEPAT IC FUNCT ION PANEL (7) bilirubin, total 1.2 mg/dL 0.0-1. 2 normal Not Available [facility] ([facility]) [address] [facility] [place], [address], 04/03/2024 16:10:09 03/30/20 24 03/31/2024 HEPAT IC FUNCT ION PANEL (7) bilirubin, direct 0.28 mg/dL 0.00-0 .40 normal Not Available [facility] ([facility]) [address] [facility] [place], [address], 04/03/2024 16:10:09 03/30/20 24 03/31/2024 HEPAT IC FUNCT ION PANEL (7) alkaline phosphatase 89 IU/L 44-121 normal Not Available [facility] ([facility]) [address] [facility] [place], [address], 04/03/2024 16:10:09 03/30/20 24 03/31/2024 HEPAT IC FUNCT ION PANEL (7) AST (SGOT) 35 IU/L 0-40 normal Not Available [facility] ([facility]) [address] [facility] [place], [address], 04/03/2024 16:10:09 03/30/20 24 03/31/2024 HEPAT IC FUNCT ION PANEL (7) ALT (SGPT) 76 IU/L 0-44 above high normal Not Available [facility] ([facility]) [address] [facility], [place], [address], 04/03/2024 16:10:09 03/30/20 24 03/31/2024 PROTH ROMBI [...] range 2.5 - 3.5 Not Available [facility] ([facility]) [address] [facility], [place], [address], 04/03/2024 16:10:10 03/30/20 24 03/31/2024 PROTH ROMBI N TIME (PT), SERIA L prothrombin time 11.6 sec 9.1-12 .0 normal Not Available [facility] ([facility]) [address] [facility] [place], [address], 04/03/2024 16:10:10 03/30/20 24 03/31/2024 PROTH ROMBI N TIME (PT), SERIA L pdf . Not Available [facility] ([facility]) [address] [facility], [address], 04/03/2024 16:10:10 03/30/20 24 04/03/2024 ENHAN BAILEE [...] 2019;7 3(1): 26-39 . Not Available [facility] ([facility]) [address] [place], [address], 04/03/2024 16:10:11 03/30/20 24 03/31/2024 KONSTANTIN TIN ferritin 278 NG/mL 30-400 normal Not Available [facility] ([facility]) [address] [place], [address], 04/03/2024 16:10:12 05/17/19 25 05/17/2024 CBC W/ AUTO DIFF WBC 5.93 K/uL 4.5-11 .5 Not Available [facility] ([facility]) [address] [place] [address] [place], [address], 05/17/2024 17:34:27 05/17/19 25 05/17/2024 CBC W/ AUTO DIFF RBC 4.37 M/uL 4.0-5. 4 Not Available [facility] ([facility]) [address] [place] [address] [place], [address], 05/17/2024 17:34:27 05/17/19 25 05/17/2024 CBC W/ AUTO DIFF HGB 13.9 g/dL 14.0-1 8.0 low Not Available [facility] (Pre-Op [facility]) [address] [place], [address], 05/17/2024 17:34:27 05/17/19 25 05/17/2024 CBC W/ AUTO DIFF HCT 40.5 % 40-54 Not Available [facility] ([facility]) [address] [place] [address] [place], [address], 05/17/2024 17:34:27 05/17/19 25 05/17/2024 CBC W/ AUTO DIFF MCV 92.7 fL 80.0-1 00.0 Not Available [facility] ([facility]) [address] [place] [address] [place], [address], 05/17/2024 17:34:27 05/17/19 25 05/17/2024 CBC W/ AUTO DIFF MCH 31.8 pg 26.0-3 2.0 Not Available [facility] ([facility]) [address] [place] [address] [place], [address], 05/17/2024 17:34:27 05/17/19 25 05/17/2024 CBC W/ AUTO DIFF MCHC 34.3 g/dL 32.0-3 6.0 Not Available [facility] ([facility]) [address] [place] [address] [place], [address], 05/17/2024 17:34:27 05/17/19 25 05/17/2024 CBC W/ AUTO DIFF RDW 13.3 % 11.5-1 4.5 Not Available [facility] ([facility]) [address] [place] [address] [place], [address], 05/17/2024 17:34:27 05/17/19 25 05/17/2024 CBC W/ AUTO DIFF platelet count 301 K/uL 142-42 4 Not Available [facility] ([facility]Op [facility]) [address] [place] [address] [place], [address], 05/17/2024 17:34:27 05/17/19 25 05/17/2024 CBC W/ AUTO DIFF MPV 9.8 fL 6.8-10 .2 Not Available [facility] ([facility]) [address] [place] [address] [place], [address], 05/17/2024 17:34:27 05/17/19 25 05/17/2024 CBC W/ AUTO DIFF neutrophil % 64.9 % 50-70 Not Available [facility] ([facility]) [address] [place] [address] [place], [address], 05/17/2024 17:34:27 05/17/19 25 05/17/2024 CBC W/ AUTO DIFF lymphocyte % 25.3 % 18.0-4 2.0 Not Available [facility] ([facility]) [address] [place] [address] [place], [address], 05/17/2024 17:34:27 05/17/19 25 05/17/2024 CBC W/ AUTO DIFF monocyte % 7.1 % 2.0-11 .0 Not Available [facility] ([facility]Op [facility]) [address] [place] [address] [place], [address], 05/17/2024 17:34:27 05/17/19 25 05/17/2024 CBC W/ AUTO DIFF eosinophil % 1.9 % 1.0-3. 0 Not Available [facility] ([facility]) [address] [place] [address] [place], [address], 05/17/2024 17:34:27 05/17/19 25 05/17/2024 CBC W/ AUTO DIFF basophil % 0.5 % 0.0-2. 0 Not Available [facility] ([facility]) [address] [place] [address] [place], [address], 05/17/2024 17:34:27 05/17/19 25 05/17/2024 CBC W/ AUTO DIFF immature granulocytes % 0.3 % 0.0-0. 8 Not Available [facility] ([facility]) [address] [place] [address] [place], [address], 05/17/2024 17:34:27 05/17/19 25 05/17/2024 CBC W/ AUTO DIFF nucleated red blood cells % 0.0 % Not Available [facility] ([facility]) [address] [facility] [place], [address], 05/17/2024 17:34:27 05/17/19 25 05/17/2024 CBC W/ AUTO DIFF neutrophil # 3.85 K/uL Not Available [facility] ([facility]) [address] [facility] [place], [address], 05/17/2024 17:34:27 05/17/19 25 05/17/2024 CBC W/ AUTO DIFF lymphocyte # 1.50 K/uL Not Available [facility] ([facility]) [address] [facility] [place], [address], 05/17/2024 17:34:27 05/17/19 25 05/17/2024 CBC W/ AUTO DIFF monocyte # 0.42 K/uL Not Available [facility] ([facility]) [address] [facility] [place], [address], 05/17/2024 17:34:27 05/17/19 25 05/17/2024 CBC W/ AUTO DIFF eosinophil # 0.11 K/uL Not Available [facility] ([facility]) [address] [facility] [place], [address], 05/17/2024 17:34:27 05/17/19 25 05/17/2024 CBC W/ AUTO DIFF basophil # 0.03 K/uL Not Available [facility] ([facility]) [address] [place] [address] [place], [address], 05/17/2024 17:34:27 05/17/19 25 05/17/2024 CBC W/ AUTO DIFF immature gramulocytes # 0.02 K/uL Not Available [facility] ([facility]) [address] [place] [address] [place], [address], 05/17/2024 17:34:27 05/17/19 25 05/17/2024 CBC W/ AUTO DIFF nucleated red blood cells # 0.00 k/uL Not Available [facility] ([facility]) [address] [place] [address] [place], [address], 05/17/2024 17:34:27 05/17/19 25 05/17/2024 CBC W/ AUTO DIFF manual differential NO Not Available [facility] ([facility]) [address] [place] [address] [place], [address], 05/17/2024 17:34:27 05/17/19 25 05/17/2024 CBC W/ AUTO DIFF note Unles s other joseph noted testi ng [facility] [address] [facility] [place] [address] Isac guthrie MD Not Available [facility] ([facility]) [address] [place] [address] [place], [address], 05/17/2024 17:34:27 05/17/19 25 05/17/2024 COMP METAB OLIC PANEL sodium 139 mmol/ L 137-14 7 Not Available [facility] ([facility]) [address] [place] [address] [place], [address], 05/17/2024 18:54:31 05/17/19 25 05/17/2024 COMP METAB OLIC PANEL potassium 3.8 mmol/ L 3.5-5. 1 Not Available [facility] ([facility]) [address] [place] [address] [place], [address], 05/17/2024 18:54:31 05/17/19 25 05/17/2024 COMP METAB OLIC PANEL chloride 104 mmol/ L 98-110 Not Available [facility] ([facility]) [address] [place] [address] [place], [address], 05/17/2024 18:54:31 05/17/19 25 05/17/2024 COMP METAB OLIC PANEL carbon dioxide 23 mmol/ L 21-30 Not Available [facility] ([facility]) [address] [place] [address] [place], [address], 05/17/2024 18:54:31 05/17/19 25 05/17/2024 COMP METAB OLIC PANEL anion gap 12 mmol/ L 6-14 Not Available [facility] ([facility]) [address] [place] [address] [place], [address], 05/17/2024 18:54:31 05/17/19 25 05/17/2024 COMP METAB OLIC PANEL glucose 76 mg/dL 70-115 Not Available [facility] ([facility]) [address] [place] [address] [place], [address], 05/17/2024 18:54:31 05/17/19 25 05/17/2024 COMP METAB OLIC PANEL BUN 24 mg/dL 9-20 high Not Available [facility] ([facility]) [address] [place] [address] [place], [address], 05/17/2024 18:54:31 05/17/19 25 05/17/2024 COMP METAB OLIC PANEL creatinine 1.2 mg/dL 0.5-1. 5 Not Available [facility] ([facility]Op [facility]) [address] [place] [address] [place], [address], 05/17/2024 18:54:31 05/17/19 25 05/17/2024 COMP METAB OLIC PANEL BUN/creatini ne ratio 20 10-20 Not Available [facility] ([facility]) [address] [place] [address] [place], [address], 05/17/2024 18:54:31 05/17/19 25 05/17/2024 COMP METAB [...] chester ing kiney funct ion. Not Available [facility] ([facility]) [address] [place] [address] [place], [address], 05/17/2024 18:54:31 05/17/19 25 05/17/2024 COMP METAB OLIC PANEL osmolality (calculated) 292 mosmo l/kg 275-30 1 OSMOL ALITY IS A CALCU LATIO N UTILI ZING THE SERUM /PLAS MA SODIU M, GLUCO SE AND UREA NITRO GEN (BUN) LEVEL S. FOR THE MOST ACCUR ATE RESUL T A MEASU RED SERUM OSMOL ALITY IS SUGGE STED. Not Available [facility] ([facility]) [address] [place] [address] [place], [address], 05/17/2024 18:54:31 05/17/19 25 05/17/2024 COMP METAB OLIC PANEL total protein 7.3 g/dL 6.2-8. 2 Not Available [facility] ([facility]) [address] [place] [address] [place], [address], 05/17/2024 18:54:31 05/17/19 25 05/17/2024 COMP METAB OLIC PANEL albumin 4.7 g/dL 3.5-5. 0 Not Available [facility] ([facility]) [address] [place] [address] [place], [address], 05/17/2024 18:54:31 05/17/19 25 05/17/2024 COMP METAB OLIC PANEL calcium 9.1 mg/dL 8.5-10 .8 Not Available [facility] ([facility]) [address] [place] [address] [place], [address], 05/17/2024 18:54:31 05/17/19 25 05/17/2024 COMP METAB OLIC PANEL bilirubin total 1.4 mg/dL 0.2-1. 3 high Not Available [facility] ([facility]) [address] [place] [address] [place], [address], 05/17/2024 18:54:31 05/17/19 25 05/17/2024 COMP METAB OLIC PANEL AST (SGOT) 45 IU/L 17-59 Not Available [facility] ([facility]) [address] [place] [address] [place], [address], 05/17/2024 18:54:31 05/17/19 25 05/17/2024 COMP METAB OLIC PANEL ALT (SGPT) 111 IU/L 0-50 high Pleas e note new refer ence [facility] [place] for ALT. Due to a recen t manuf actur er metho dolog y chester e, the refer ence [facility] [place] for ALT is lower effec tive August 03, 2020. Not Available [facility] ([facility]Op [facility]) [address] [place] [address] [place], [address], 05/17/2024 18:54:31 05/17/19 25 05/17/2024 COMP METAB OLIC PANEL alk phosphatase 73 IU/L 38-126 Not Available [facility] ([facility]) [address] [place] [address] [place], [address], 05/17/2024 18:54:31 05/17/19 25 05/17/2024 COMP METAB OLIC PANEL note Unles s other joseph noted testi ng perfo [facility]med at: [facility] [address] [place] [address] Isac guthrie MD Not Available [facility] ([facility]) [address] [place] [address] [place], [address], 05/17/2024 18:54:31 05/17/19 25 05/17/2024 IRON STUDY W FE/TI BC/UI BC/%S AT iron 156 ug/dL 49-181 Not Available [facility] ([facility]) [address] [place] [address] [place], [address], 05/17/2024 19:12:42 05/17/19 25 05/17/2024 IRON STUDY W FE/TI BC/UI BC/%S AT total iron bind cap. 364 ug/dL 261-46 2 Not Available [facility] ([facility]) [address] [place] [address] [place], [address], 05/17/2024 19:12:42 05/17/19 25 05/17/2024 IRON STUDY W FE/TI BC/UI BC/%S AT unsaturated iron binding cap 208 ug/dL 150-37 5 Not Available [facility] ([facility]) [address] [place] [address] [place], [address], 05/17/2024 19:12:42 05/17/19 25 05/17/2024 IRON STUDY W FE/TI BC/UI BC/%S AT % saturation 43 % 15-55 Not Available [facility] ([facility]) [address] [place] [address] [place], [address], 05/17/2024 19:12:42 05/17/19 25 05/17/2024 IRON STUDY W FE/TI BC/UI BC/%S AT note Unlgilda s other joseph noted testi ng perfo rmed at: [facility] [address] [place] [address] Isac guthrie MD Not Available [facility] ([facility]) [address] [place] [address] [place], [address], 05/17/2024 19:12:42 05/17/19 25 05/17/2024 KONSTANTIN TIN ferritin 69 NG/mL 5-244 Not Available [facility] ([facility]) [address] [place] [address] [place], [address], 05/17/2024 21:20:48 05/17/19 25 05/17/2024 KONSTANTIN TIN note Unlgilda s other joseph noted testi ng perfo rmed at: [facility] [address] [place] [address] Isac guthrie MD Not Available [facility] ([facility]) [address] [place] [address] [place], [address], 05/17/2024 21:20:48 Result Notes None recorded. Problems Name Problem SNOMED Code Status Onset Date Resolution Date Notes Provider Name and Address Organization Details Recorded Time Anxiety disorder 448847505 Active Aruna Muhammad null, [place] - [place] & [place] 2 13:44:20 Serum amylase (pancreatic) outside reference range 814199549 Active Aruna Muhammad [place], [place] 2 13:44:20 Administrativ e reason for encounter 488506975 Active Aruna Muhammad [place], [place] 2 13:44:20 Liver enzymes level above reference range 495723171 Active 2021 Andres Valdez PA-C [address] , [place], [address] , [place] & [place] 2 15:21:51 Steatotic liver disease 610422626 Active 2021 Andres Valdez PA-C [address] [facility], [place], [address] , [place] 2 15:22:08 Fatigue 70153320 Active 2021 Andres Valdez PA-C [address] , [place], [address] , [place] 2 15:22:15 Serum ferritin above reference range 666591110 Active 2021 Andres Valdez PA-C [address] , [place], [address] , [place] 2 15:22:31 Metabolic dysfunction-a ssociated steatohepatit is 476840422 Active 2021 Andres Valdez PA-C [address], [place], [address] , [place] [facility] - [place] & [place] 2 15:24:35 International normalized ratio above reference range 526665669 Active 2022 Andres Valdez PA-C [address], [place], [address] , [place] & [place] 3 10:16:05 Problem Notes None recorded. Procedures Surgical History Date Name Laterality Status Provider Name and Address Organization Details Recorded Time 05/17/19 25 Venipuncture completed Sofiya Bolden [place] & [place] 05/17/2024 13:50:17 03/30/20 24 Venipuncture Gastro completed Zenaida [place] 03/30/2024 16:27:08 01/12/20 24 Venipuncture completed Shahnaz Bass [place] 01/12/2024 13:48:58 10/09/19 24 Venipuncture completed Glendy [place] 10/09/2023 15:44:01 04/04/20 23 hernia repair completed Glendy [place]rebee [place] 10/09/2023 15:25:31 04/14/19 04 vasectomy completed Glendy Ferrebee [place] 10/09/2023 15:26:21 04/14/19 00 operation on varicocele completed Glendy Ferrebee [place] & [place] 10/09/2023 15:26:06 Imaging Results None recorded. Procedure [...] Updated DateTime 4 180.34 cm 29.3 kg/m2 34622.8 3 g 97.9 [degF] 66 /min 98 % 98 % 65 /min 163 mm[Hg] 98 mm[Hg] Jessie Hen[place] [facility] [facility] & [place] 4 14:09:28 Date Recorded Body height Body mass index (BMI) Body weight Body temperature Oxygen saturation Oxygen saturation in Arterial blood by Pulse oximetry Heart rate Systolic blood pressure Diastolic blood pressure Provider Name and Address Organization Details Last Updated DateTime 4 180.34 cm 29.6 kg/m2 70715.3 8 g 97.4 [degF] 96 % 96 % 67 /min 129 mm[Hg] 86 mm[Hg] Glendy Maki [place] [facility] & [place] 4 15:20:22 Date Recorded Body height Body mass index (BMI) Body weight Body temperature Oxygen saturation Oxygen saturation in Arterial blood by Pulse oximetry Heart rate Systolic blood pressure Diastolic blood pressure Provider Name and Address Organization Details Last Updated DateTime 4 180.34 cm 31.4 kg/m2 591918 g 96.8 [degF] 96 % 96 % 72 /min 138 mm[Hg] 83 mm[Hg] Shahnaz Bass [place] [facility] [facility] & [place] 4 13:26:37 Date Recorded Body height Body mass index (BMI) Body weight Body temperature Oxygen saturation Oxygen saturation in Arterial blood by Pulse oximetry Heart rate Systolic blood pressure Diastolic blood pressure Provider Name and Address Organization Details Last Updated DateTime 4 180.34 cm 32.4 kg/m2 390932. 87 g 97.9 [degF] 94 % 94 % 79 /min 152 mm[Hg] 99 mm[Hg] Zenaida [place]as [place] [facility] [facility] & [place] 4 15:45:59 Date Recorded Body height Body mass index (BMI) Body weight Body temperature Oxygen saturation Oxygen saturation in Arterial blood by Pulse oximetry Heart rate Systolic blood pressure Diastolic blood pressure Provider Name and Address Organization Details Last Updated DateTime 5 180.34 cm 31.9 kg/m2 946259. 65 g 96.9 [degF] 94 % 94 % 75 /min 140 mm[Hg] 85 mm[Hg] Sofiya Bolden [place] [facility] [facility] & [place] 13:24:49 Social History Question Answer Notes LastModified by Organizat ion Details LastModified Time Tobacco Smoking Status Former Smoker Bettina boyd, [place] - [facility] [facility] & [place] 08/28/2022 10:39:25 Do You Have An Advance [...] Anxious, Or Unable To Sleep At Night)? [id number] Information not available 08/28/2022 Do You Use [...] N Allergies (Food, seasonal, environmental ) N Anxiety/Depression N Gout N Atrial Fibrillation N Thyroid Disease N Colon Cancer N Hyperthyroidism N Breast Cancer N Emphysema N Lung Disease N Hypothyroidism N Brain Tumors N COPD N Anemia N Multiple Sclerosis N Anesthesia [...] SNOMED-CT Code Diagnosis ICD10 Code Diagnosis Note [id number] Andres Valdez PA-C [facility] [place] [address] 2 01/29/2022 14:48:17 01/29/2022 15:22:38 Liver enzymes level above reference range 690697279 R74.01 Steatotic liver disease 176912169 K76.0 Fatigue 85294212 R53.83 Serum ferr itin above reference range 816268264 R77.8 [id number] Andres Valdez PA-C [facility] [place] 8[address]3524[address] 2 08/28/2022 10:18:28 08/28/2022 11:15:55 Liver enzymes level above reference range 269572451 R74.01 Steatotic liver disease 299317835 K76.0 Fatigue 87999042 R53.83 Serum ferr itin above reference range 716971375 R77.8 [id number] Andres Valdez PA-C [facility] [place] [address] 2 09/20/2022 10:41:35 09/20/2022 11:19:07 Steatotic liver disease 025340216 K76.0 Serum ferr itin above reference range 172622073 R77.8 Metabolic dysfunction-associate d steatohepatitis 916662785 K75.81 Liver enzy mes level above reference range 427659196 R74.01 Fatigue 25792595 R53.83 [id number] Andres Valdez PA-C [facility] [address] [address] 11/13/2022 09:12:16 11/13/2022 10:27:35 Steatotic liver disease 553371042 K76.0 Serum ferr itin above reference range 648424789 R77.8 Metabolic dysfunction-associate d steatohepatitis 559778225 K75.81 Fatigue 13871547 R53.83 [id number] Andres Valdez PA-C [facility] [address] [address] 03/25/2023 10:05:21 03/25/2023 10:46:36 Steatotic liver disease 144607992 K76.0 Serum ferr itin above reference range 803459024 R77.8 Metabolic dysfunction-associate d steatohepatitis 757746048 K75.81 Fatigue 19611970 R53.83 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 Internatio nal normalized ratio above reference range 413572618 R79.1 [id number] Andres Valdez PA-C [facility] [address] [address] 09/23/2023 13:47:29 09/23/2023 15:05:12 Steatotic liver disease 011532677 K76.0 Serum ferr itin above reference range 825739867 R77.8 Metabolic dysfunction-associate d steatohepatitis 143054665 K75.81 Fatigue 04708565 R53.83 Carrier of hemochromatosis HFE gene mutation 056713748 Z14.8 Internatio nal normalized ratio above reference range 267883197 R79.1 [id number] Kimberly Meza PA-C [facility] [place] [address] 10/09/2023 15:02:08 10/09/2023 15:49:31 Serum ferritin above reference range 236342958 R77.8 Records show patient has 1 copy of heterozygo us hemochroma tosis mutation but unable to find results in chart review.Lab s [facility] on September 23, 2023 show white blood cell count 7.2 red blood cell count 5.11 hemoglobin 16.1 hematocrit 48.3 platelet count 542729. elevated ferritin 623. Discussed with patient ordering mutation test today. Discussed therapeuti c phlebotomi es weekly to maintain a goal of ferritin less than 50 due to patient's past medical history of fatty liver disease. Will follow-up on therapeuti c phlebotomi es. Steatotic liver disease K76.0 Patient has a past medical history of fatty liver disease and is currently being followed with [facility]. [id number] Kimberly Meza PA-C [facility] [address] [place] [address] 01/12/2024 13:22:26 01/12/2024 13:47:20 Serum ferritin above reference range 337724378 R77.8 Records show patient has 1 copy of heterozygo us hemochroma tosis mutation but unable to find results in chart review.Lab s [facility]astro[facility] on September 23, 2023 show white blood cell count 7.2 red blood cell count 5.11 hemoglobin 16.1 hematocrit 48.3 platelet count 280936. elevated ferritin 623. Discussed with patient ordering mutation test today. Discussed therapeuti c phlebotomi es weekly to maintain a goal of ferritin less than 50 due to patient's past medical history of fatty liver disease. Will follow-up on therapeuti c phlebotomi es. Steatotic liver disease K76.0 Patient has a past medical history of fatty liver disease and is currently being followed with [facility]. Hereditary hemochromatosis 65078221 E83.110 Records show patient has 1 copy of heterozygo us hemochroma tosis mutation but unable to find results in chart review.Lab s [facility]astro[facility] on September 23, 2023 show white blood cell count 7.2 red blood cell count 5.11 hemoglobin 16.1 hematocrit 48.3 platelet count 370927. elevated ferritin 623.Luis Eduardo de la cruz presents to clinic on January 12, 2024. Patient has been doing therapeuti c phlebotomi es over in [facility]. Patient tolerating them very well. Discussed ordering additional labs today will follow-up and likely continue with therapeuti c phlebotomi es when needed. [id number] Andres Valdez PA-C [facility] the [address] [facility] [address] [place] [address] 03/30/2024 15:28:56 03/30/2024 16:05:39 Steatotic liver disease [id number] K76.0 Serum ferr itin above reference range [id number] R77.8 Metabolic dysfunction-associate d steatohepatitis [id number] K75.81 Carrier of hemochromatosis HFE gene mutation [id number] Z14.8 [id number] Kimberly Meza PA-C [facility] Oncology and Hematolog y-[address] [place] [address] 05/17/2024 13:16:53 05/17/2024 13:46:54 Hereditary hemochromatosis [id number] E83.110 Records show patient has 1 copy of heterozygo us hemochroma tosis mutation but unable to find results in chart review.Lab s [facility] on September 23, 2023 show white blood cell count 7.2 red blood cell count 5.11 hemoglobin 16.1 hematocrit 48.3 platelet count [id number]. elevated ferritin 623.Luis Eduardo de la cruz presents to clinic on January 12, 2024. Patient has been doing therapeuti c phlebotomi es over in [facility]. Patient tolerating them very well. Discussed ordering additional labs today will follow-up and likely continue with therapeuti c phlebotomi es when needed. Patient presents to clinic on May 17, 2024. Patient has been having therapeuti c phlebotomi es performed. Will repeat labs to evaluate if continued phlebotomi es are needed at this time. Serum ferr itin above reference range [id number] R77.8 Records show patient has 1 copy of heterozygo us hemochroma tosis mutation but unable to find results in chart review.Lab s [facility] on September 23, 2023 show white blood cell count 7.2 red blood cell count 5.11 hemoglobin 16.1 hematocrit 48.3 platelet count [id number]. elevated ferritin 623. Discussed with patient ordering mutation test today. Discussed therapeuti c phlebotomi es weekly to maintain a goal of ferritin less than 50 due to patient's past medical history of fatty liver disease. Will follow-up on therapeuti c phlebotomi es. Steatotic liver disease [id number] K76.0 Patient has a past medical history of fatty liver disease and is currently being followed with [facility]. Health Concerns Section Related Observation LastModified by Organization Detai ls LastModified Time None Recorded Concern Status LastModified by Organization Details LastModified Time None Recorded Advance Directives Directive N: Payers Insurance Date Sequence Insurance Name Policy Number Policy Gramajo Covered Member ID Gramajo Member ID Guarantor Name 05/18/2024 1 EAST - HUMANA () Tad De La Cruz Ewing [id number] Tad De La Cruz Ewing 05/18/2024 1 WEST - TRIWEST () Tad Sarah Ewing [id number] Tad De La Cruz Ewing 11/01/2023 1 *SELF PAY* La thao Ewing 05/17/2024 1 EAST - HUMANA () Tad De La Cruz Ewing [id number] Tad De La Cruz Ewing Notes Date [...] alcohol consumption on weekends. Andres Valdez PA-C [address], [place], [address], [facility] - [place] - [place] & [place] 09/23/2023 14:49:06 10/09/2023 text/html 48-year-old male presents [...] 5.11 hemoglobin 16.1 hematocrit 48.3 platelet count 826250. elevated ferritin 623. Discussed with patient ordering mutation test today. Discussed therapeutic phlebotomies weekly to maintain a goal of ferritin less than 50 due to patient's past medical history of fatty liver disease. Will follow-up on therapeutic phlebotomies. Kimberly Meza PA-C [address], [place], [address], [facility] & [place] 10/09/2023 16:03:36 01/12/2024 text/html 48-year-old male presents [...] 5.11 hemoglobin 16.1 hematocrit 48.3 platelet count 300646. elevated ferritin 623. Discussed with patient ordering mutation test today. Discussed therapeutic phlebotomies weekly to maintain a goal of ferritin less than 150 due to patient's past medical history of fatty liver disease. Will follow-up on therapeutic phlebotomies. Patient presents to clinic on January 12, 2024. Patient has been doing therapeutic phlebotomies over in [facility]. Patient tolerating them very well. Discussed ordering additional labs today will follow-up and likely continue with therapeutic phlebotomies when needed. Kimberly Meza PA-C [address], [place], [address], [facility] & [place] 01/12/2024 13:53:36 03/30/2024 text/html Mr. Ewing is [...] denies any physical complaints at this time. [address], [place], [address], [facility] & [place] 03/30/2024 16:37:50 05/17/2024 text/html 49-year-old male presents [...] 5.11 hemoglobin 16.1 hematocrit 48.3 platelet count 052870. elevated ferritin 623. Discussed with patient ordering mutation test today. Discussed therapeutic phlebotomies weekly to maintain a goal of ferritin less than 150 due to patient's past medical history of fatty liver disease. Will follow-up on therapeutic phlebotomies. Patient presents to clinic on January 12, 2024. Patient has been doing therapeutic phlebotomies over in [facility]. Patient tolerating them very well. Discussed ordering additional labs today will follow-up and likely continue with therapeutic phlebotomies when needed. Patient presents to clinic on May 17, 2024. Patient has been having therapeutic phlebotomies performed. Will repeat labs to evaluate if continued phlebotomies are needed at this time. Kimberly Meza PA-C [address] , [place], [address], [place] [facility] [place] & [place] 05/17/2024 13:51:29
[2024-08-20 12:18] VITALS: BMI 31.4
--- NOTE | 2024-08-20 12:23 | PC.NURSE ---
1223-collected labs via venipuncture stick in left ac with butterfly needle;pt to get therapeutic phlebotomy if ferritin>150
[2024-08-20 12:31] LABS: Hematocrit 43.3 % (42.0-52.0); Hemoglobin 14.7 g/dL (14.1-18.0)
[2024-08-20 13:20] LABS: Ferritin 110 ng/ml (17.9-464)
== END 2024-08-20 13:40 | disposition home or self-care (01) ==
LOC: INF 12:14
PROVIDERS: PCP Nurse Practitioner Family; Visit Provider Physician Assistant
DX: E83.110 Hereditary hemochromatosis (principal)
CPT/HCPCS: 36415; 82728; 85014; 85018

== ENCOUNTER 2024-09-23 14:30 | Outpatient (CLI) | payer OTHER, SELFPAY ==
[2024-09-23 14:39] VITALS: BMI 31.4
[2024-09-23 14:45] LABS: Hemoglobin 14.2 g/dL (14.1-18.0)
--- OUTSIDE RECORDS SUMMARY | 2024-09-23 15:10 | XMS_ITS | Data Portability ---
Author Organization [place] - [facility] ADMIN Address [address] [place] [id number] Care Team Providers Care Lathe Mechanic Name Role Phone SATHISH SIERRA Primary Care Provider [phone] Assessment Encounter Date Assessment Date Assessment LastModified [...] may be of benefit. Follow-up 6 months [email or web address] Not available 09/23/2023 14:47:08 03/30/2024 03/30/2024 48 [...] at goal of <150. Follow-up 6 months [email or web address] Not available 03/30/2024 16:37:05 Plan of Treatment Reminders Order Date Submit Date Provider Last Modified By Organization Details Last Modified Time Details Appointments Establish ed Visit 15 min 2024 02:30P M Andres Valdez PA-C Not available Not available Not available OV EST 30 2024 01:00P M Kimberly Meza PA-C Not available Not available Not available Lab CBC w/ auto diff 2024 025 [facility] (Lab Registration) , [address] [place] [address] [place], [address], 05/24/2024 07:59:21 iron + TIBC + ferritin, serum 2024 025 [facility] (Lab Registration) , [address] [place] [address] [place], [address], 05/24/2024 07:59:21 iron saturatio n, serum 2024 025 [facility] (Lab Registration) , [address] [place] [address] [place], [address], 05/24/2024 07:59:21 CMP, serum or plasma 2024 025 [email or web address] (Lab Registration) , [address] [place] [address] [place], [address], 05/24/2024 07:59:21 CBC 2023 024 [facility], [address], [address], [place], [address], 04/03/2024 16:10:08 hepatic function panel, serum 2023 024 [facility], [address], [address], [place], [address], 04/03/2024 16:10:09 PT/INR 2023 024 [facility], [address], [address], [place], [address], 04/03/2024 16:10:10 liver fibrosis score, calculate d by ELF, serum or plasma 2023 024 [facility], [address], [address], [place], [address], 04/03/2024 16:10:11 ferritin, serum or plasma 2023 024 [facility], [address], [address], [place], [address], 04/03/2024 16:10:12 CBC w/ auto diff 2023 024 [email or web address] [facility] (Lab Registration) , [address] [place] [address] [place], [address], 01/19/2024 15:52:09 iron + TIBC + ferritin, serum 2023 024 [email or web address] [facility] (Lab Registration) , [address] [place] [address] [place], [address], 01/19/2024 15:52:10 iron saturatio n, serum [email or web address] [facility] [address] [facility] (Lab Registration) , [address] [place] [address] [place], [address], 01/19/2024 15:52:10 CMP, serum or plasma [address] [facility] (Lab Registration) , [address] [place] [address] [place], [address], 01/19/2024 15:52:10 hemochrom atosis mutation (hfe), blood/tis qamra 2023 024 [facility] (Lab Registration) , [address] [place] [address] [place], [address], 11/04/2023 15:13:14 CBC 2023 024 [facility], [address], [address], [place], [address], 09/24/2023 16:15:43 hepatic function panel, serum 2023 024 [facility], [address], [address], [place], [address], 09/24/2023 16:15:44 PT/INR 2023 024 [facility], [address], [address], [place], [address], 09/24/2023 16:15:45 ferritin, serum or plasma 2023 024 [facility], [address], [address], [place], [address], 09/24/2023 16:15:46 Referral None recorded. Procedures None [...] x10e3 /uL 3.4-10 .8 Not Available [facility] ([facility]) [address] [place], [address], 09/24/2023 16:15:43 09/23/19 24 09/24/2023 CBC, PLATE LET, NO DIFFE RENTI AL RBC 5.11 x10e6 /uL 4.14-5 .80 Not Available [facility] ([facility]) [address] [place], [address], 09/24/2023 16:15:43 09/23/19 24 09/24/2023 CBC, PLATE LET, NO DIFFE RENTI AL hemoglobin 16.1 g/dL 13.0-1 7.7 Not Available [facility] ([facility]) [address] [place], [address], 09/24/2023 16:15:43 09/23/19 24 09/24/2023 CBC, PLATE LET, NO DIFFE RENTI AL hematocrit 48.3 % 37.5-5 1.0 Not Available [facility] ([facility]) [address] [place], [address], 09/24/2023 16:15:43 09/23/19 24 09/24/2023 CBC, PLATE LET, NO DIFFE RENTI AL MCV 95 fL 79-97 Not Available [facility] ([facility]) [address] [place], [address], 09/24/2023 16:15:43 09/23/19 24 09/24/2023 CBC, PLATE LET, NO DIFFE RENTI AL MCH 31.5 pg 26.6-3 3.0 Not Available [facility] ([facility]) [address] [place], [address], 09/24/2023 16:15:43 09/23/19 24 09/24/2023 CBC, PLATE LET, NO DIFFE RENTI AL MCHC 33.3 g/dL 31.5-3 5.7 Not Available [facility] ([facility]) [address], [place], [address], 09/24/2023 16:15:43 09/23/19 24 09/24/2023 CBC, PLATE LET, NO DIFFE RENTI AL RDW 12.4 % 11.6-1 5.4 Not Available [facility] ([facility]) [address], [place], [address], 09/24/2023 16:15:43 09/23/19 24 09/24/2023 CBC, PLATE LET, NO DIFFE RENTI AL platelets 320 x10e3 /uL 150-45 0 Not Available [facility] ([facility]) [address], [place], [address], 09/24/2023 16:15:43 09/23/19 24 09/24/2023 CBC, PLATE LET, NO DIFFE RENTI AL NRBC BUTTON 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 5 Not Available [facility] ([facility]) [address], [place], [address], 09/24/2023 16:15:44 09/23/19 24 09/24/2023 HEPAT IC FUNCT ION PANEL (7) albumin 5.1 g/dL 4.1-5. 1 Not Available [facility] ([facility]) [address], [place], [address], 09/24/2023 16:15:44 09/23/19 24 09/24/2023 HEPAT IC FUNCT ION PANEL (7) bilirubin, total 1.6 mg/dL 0.0-1. 2 above high normal Not Available [facility] ([facility]) [address], [place], [address], 09/24/2023 16:15:44 09/23/19 24 09/24/2023 HEPAT IC FUNCT ION PANEL (7) bilirubin, direct 0.29 mg/dL 0.00-0 .40 Not Available [facility] ([facility]) [address] [place], [address], 09/24/2023 16:15:44 09/23/19 24 09/24/2023 HEPAT IC FUNCT ION PANEL (7) alkaline phosphatase 105 IU/L 44-121 Not Available [facility]) [address] [place], [address], 09/24/2023 16:15:44 09/23/19 24 09/24/2023 HEPAT IC FUNCT ION PANEL (7) AST (SGOT) 33 IU/L 0-40 Not Available [facility] ([facility]) [address] [place], [address], 09/24/2023 16:15:44 09/23/19 24 09/24/2023 HEPAT IC FUNCT ION PANEL (7) ALT (SGPT) 62 IU/L 0-44 above high normal Not Available [facility] ([facility]) [address] [place], [address], 09/24/2023 16:15:44 09/23/19 24 09/24/2023 PROTH ROMBI [...] range 2.5 - 3.5 Not Available [facility] ([facility]) [address], [place], [address], 09/24/2023 16:15:45 09/23/19 24 09/24/2023 PROTH ROMBI N TIME (PT), SERIA L prothrombin time 11.2 sec 9.1-12 .0 Not Available [facility] ([facility]) [address] [place], [address], 09/24/2023 16:15:45 09/23/19 24 09/24/2023 PROTH ROMBI N TIME (PT), SERIA L pdf . Not Available [facility] ([facility]) [address] [place], [address], 09/24/2023 16:15:45 09/23/19 24 09/24/2023 KONSTANTIN TIN ferritin 623 NG/mL 30-400 above high normal Not Available [facility] ([facility]) [address] [place], [address], 09/24/2023 16:15:46 10/09/19 24 10/09/2023 HERED ITARY HEMOC HROMA TOSIS note Unles s other joseph noted testi ng perfo [facility]med at: [facility] [address] [place] [address] Isac guthrie MD Not Available [facility] (Pre-Op Clinic) [address] [place] [address] [place], [address], 11/04/2023 15:13:14 10/09/19 24 11/04/2023 HERED ITARY [...] ders to discu ss resul ts at [phone] ). . Test Detai ls: Three varia nts kaylin zed: c.845 G>A (p.Cy s282T yr), commo nly refer red to as C282Y c.187 C>G (p.Hi s63As p), commo nly refer red to as H63D c.193 A>T (p.Se r65Cy s), commo nly refer red to as S65C . Metho ds/Li mitat ions: DNA Kaylin sis of the HFE gene ([id number]) was perfo rmed by PCR ampli [...] e salas cteri stics deter mined by Perfect [employer]. It has not been clear ed [...] 3. doi: 10.10 / p.243 30. PMID: 96419 290; PMCID : PMC31 31713 . Shila G, King ot P, Moreno [...] hg.20 15.12 8. Epub 2014 8. PMID: 44827 218; PMCID : PMC49 51643 . Not Available [facility] (Pre-Op Clinic) [address] [place] [address] [place], [address], 11/04/2023 15:13:14 10/09/19 24 11/04/2023 HERED ITARY HEMOC HROMA TOSIS reviewed by: ELIZABETH Brito , PhD FAC Perfo rmed at: - [facility] [address] [facility] , [facility] [address] Lab Direc tor: [facility] , Phone : [phone] Not Available [facility] (Pre-Op Clinic) [address] [place] [address] [place], [address], 11/04/2023 15:13:14 01/12/20 24 01/12/2024 CBC W/ AUTO DIFF WBC 5.84 K/uL 4.5-11 .5 Not Available [facility] (Pre-Op Clinic) [address] [place] [address] [place], [address], 01/12/2024 14:36:35 01/12/20 24 01/12/2024 CBC W/ AUTO DIFF RBC 4.19 M/uL 4.0-5. 4 Not Available [facility] (Pre-Op Clinic) [address] [place] [address] [place], [address], 01/12/2024 14:36:35 01/12/20 24 01/12/2024 CBC W/ AUTO DIFF HGB 14.0 g/dL 14.0-1 8.0 Not Available [facility] (Pre-Op Clinic) [address] [place] [address] [place], [address], 01/12/2024 14:36:35 01/12/20 24 01/12/2024 CBC W/ AUTO DIFF HCT 40.5 % 40-54 Not Available [facility] (Pre-Op Clinic) [address] [place] [address] [place], [address], 01/12/2024 14:36:35 01/12/20 24 01/12/2024 CBC W/ AUTO DIFF MCV 96.7 fL 80.0-1 00.0 Not Available [facility] (Pre-Op Clinic) [address] [place] [address] [place], [address], 01/12/2024 14:36:35 01/12/20 24 01/12/2024 CBC W/ AUTO DIFF MCH 33.4 pg 26.0-3 2.0 high Not Available [facility] (Pre-Op Clinic) [address] [place] [address] [place], [address], 01/12/2024 14:36:35 01/12/20 24 01/12/2024 CBC W/ AUTO DIFF MCHC 34.6 g/dL 32.0-3 6.0 Not Available [facility] (Pre-Op Clinic) [address] [place] [address] [place], [address], 01/12/2024 14:36:35 01/12/20 24 01/12/2024 CBC W/ AUTO DIFF RDW 13.0 % 11.5-1 4.5 Not Available [facility] (Pre-Op Clinic) [address] [place] [address] [place], [address], 01/12/2024 14:36:35 01/12/20 24 01/12/2024 CBC W/ AUTO DIFF platelet count 287 K/uL 142-42 4 Not Available [facility] (Pre-Op Clinic) [address] [place] [address] [place], [address], 01/12/2024 14:36:35 01/12/20 24 01/12/2024 CBC W/ AUTO DIFF MPV 10.0 fL 6.8-10 .2 Not Available [facility] (Pre-Op Clinic) [address] [place] [address] [place], [address], 01/12/2024 14:36:35 01/12/20 24 01/12/2024 CBC W/ AUTO DIFF neutrophil % 63.2 % 50-70 Not Available [facility] (Pre-Op Clinic) [address] [place] [address] [place], [address], 01/12/2024 14:36:35 01/12/20 24 01/12/2024 CBC W/ AUTO DIFF lymphocyte % 24.7 % 18.0-4 2.0 Not Available [facility] (Pre[facility]Op Clinic) [address] [place] [address] [place], [address], 01/12/2024 14:36:35 01/12/20 24 01/12/2024 CBC W/ AUTO DIFF monocyte % 8.7 % 2.0-11 .0 Not Available [facility] (Pre[facility]Op Clinic) [address] [place] [address] [place], [address], 01/12/2024 14:36:35 01/12/20 24 01/12/2024 CBC W/ AUTO DIFF eosinophil % 2.2 % 1.0-3. 0 Not Available [facility] (Pre-Op Clinic) [address] [place] [address] [place], [address], 01/12/2024 14:36:35 01/12/20 24 01/12/2024 CBC W/ AUTO DIFF basophil % 0.5 % 0.0-2. 0 Not Available [facility] (Pre-Op Clinic) [address] [facility] [place], [address], 01/12/2024 14:36:35 01/12/20 24 01/12/2024 CBC W/ AUTO DIFF immature granulocytes % 0.7 % 0.0-0. 8 Not Available [facility] (Pre-Op Clinic) [address] [place] [address] [place], [address], 01/12/2024 14:36:35 01/12/20 24 01/12/2024 CBC W/ AUTO DIFF nucleated red blood cells % 0.0 % Not Available [facility] (Pre-Op Clinic) [address] [facility] [place], [address], 01/12/2024 14:36:35 01/12/20 24 01/12/2024 CBC W/ AUTO DIFF neutrophil # 3.69 K/uL Not Available [facility] (Pre-Op Clinic) [address] [facility] [place], [address], 01/12/2024 14:36:35 01/12/20 24 01/12/2024 CBC W/ AUTO DIFF lymphocyte # 1.44 K/uL Not Available [facility] (Pre-Op Clinic) [address] [facility] [place], [address], 01/12/2024 14:36:35 01/12/20 24 01/12/2024 CBC W/ AUTO DIFF monocyte # 0.51 K/uL Not Available [facility] (Pre-Op Clinic) [address] [facility] [place], [address], 01/12/2024 14:36:35 01/12/20 24 01/12/2024 CBC W/ AUTO DIFF eosinophil # 0.13 K/uL Not Available [facility] (Pre-Op Clinic) [address] [place] [address] [place], [address], 01/12/2024 14:36:35 01/12/20 24 01/12/2024 CBC W/ AUTO DIFF basophil # 0.03 K/uL Not Available [facility] (Pre-Op Clinic) [address] [place] [address] [place], [address], 01/12/2024 14:36:35 01/12/20 24 01/12/2024 CBC W/ AUTO DIFF immature gramulocytes # 0.04 K/uL Not Available [facility] (Pre[facility]Op Clinic) [address] [place] [address] [place], [address], 01/12/2024 14:36:35 01/12/20 24 01/12/2024 CBC W/ AUTO DIFF nucleated red blood cells # 0.00 k/uL Not Available [facility] (Pre-Op Clinic) [address] [place] [address] [place], [address], 01/12/2024 14:36:35 01/12/20 24 01/12/2024 CBC W/ AUTO DIFF manual differential NO Not Available [facility] (Pre-Op Clinic) [address] [place] [address] [place], [address], 01/12/2024 14:36:35 01/12/20 24 01/12/2024 CBC W/ AUTO DIFF note Unles s other joseph noted testi ng perfo rmed at: [facility] [address] [place] [address] Isac guthrie MD Not Available [facility] (Pre-Op Clinic) [address] [place] [address] [place], [address], 01/12/2024 14:36:35 01/12/20 24 01/12/2024 COMP METAB OLIC PANEL sodium 144 mmol/ L 137-14 7 Not Available [facility] (Pre-Op Clinic) [address] [place] [address] [place], [address], 01/12/2024 15:06:19 01/12/20 24 01/12/2024 COMP METAB OLIC PANEL potassium 4.2 mmol/ L 3.5-5. 1 Not Available [facility] (Pre-Op Clinic) [address] [facility] [place], [address], 01/12/2024 15:06:19 01/12/20 24 01/12/2024 COMP METAB OLIC PANEL chloride 106 mmol/ L 98-110 Not Available [facility] (Pre-Op Clinic) [address] [facility] [place], [address], 01/12/2024 15:06:19 01/12/20 24 01/12/2024 COMP METAB OLIC PANEL carbon dioxide 24 mmol/ L 21-30 Not Available [facility] (Pre-Op Clinic) [address] [place] [address] [place], [address], 01/12/2024 15:06:19 01/12/20 24 01/12/2024 COMP METAB OLIC PANEL anion gap 14 mmol/ L 6-14 Not Available [facility] (Pre-Op Clinic) [address] [place] [address] [place], [address], 01/12/2024 15:06:19 01/12/20 24 01/12/2024 COMP METAB OLIC PANEL glucose 97 mg/dL 70-115 Not Available [facility] (Pre-Op Clinic) [address] [place] [address] [place], [address], 01/12/2024 15:06:19 01/12/20 24 01/12/2024 COMP METAB OLIC PANEL BUN 20 mg/dL 9-20 Not Available [facility] (Pre[facility]Op [facility]) [address] [place] [address] [place], [address], 01/12/2024 15:06:19 01/12/20 24 01/12/2024 COMP METAB OLIC PANEL creatinine 1.1 mg/dL 0.5-1. 5 Not Available [facility] (Pre-Op Clinic) [address] [place] [address] [place], [address], 01/12/2024 15:06:19 01/12/20 24 01/12/2024 COMP METAB OLIC PANEL BUN/creatini ne ratio 18 ratio 10-20 Not Available [facility] (Pre[facility]Op [facility]) [address] [place] [address] [place], [address], 01/12/2024 15:06:19 01/12/20 24 01/12/2024 COMP METAB [...] chester ing kiney funct ion. Not Available [facility] (Pre[facility]Op [facility]) [address] [place] [address] [place], [address], 01/12/2024 15:06:19 01/12/20 24 01/12/2024 COMP METAB OLIC PANEL osmolality (calculated) 302 mosmo l/kg 275-30 1 high OSMOL ALITY IS A CALCU LATIO N UTILI ZING THE SERUM /PLAS MA SODIU M, GLUCO SE AND UREA NITRO GEN (BUN) LEVEL S. FOR THE MOST ACCUR ATE RESUL T A MEASU RED SERUM OSMOL ALITY IS SUGGE STED. Not Available [facility] (Pre[facility]Op Clinic) [address] [place] [address] [place], [address], 01/12/2024 15:06:19 01/12/20 24 01/12/2024 COMP METAB OLIC PANEL total protein 7.0 g/dL 6.2-8. 2 Not Available [facility] (Pre[facility]Op [facility]) [address] [place] [address] [place], [address], 01/12/2024 15:06:19 01/12/20 24 01/12/2024 COMP METAB OLIC PANEL albumin 4.6 g/dL 3.5-5. 0 Not Available [facility] (Pre[facility]Op [facility]) [address] [place] [address] [place], [address], 01/12/2024 15:06:19 01/12/20 24 01/12/2024 COMP METAB OLIC PANEL calcium 9.0 mg/dL 8.5-10 .8 Not Available [facility] (Pre[facility]Op [facility]) [address] [place] [address] [place], [address], 01/12/2024 15:06:19 01/12/20 24 01/12/2024 COMP METAB OLIC PANEL bilirubin total 1.3 mg/dL 0.2-1. 3 Not Available [facility] (Pre-Op Clinic) [address] [place] [address] [place], [address], 01/12/2024 15:06:19 01/12/20 24 01/12/2024 COMP METAB OLIC PANEL AST (SGOT) 41 IU/L 17-59 Not Available [facility] (Pre[facility]Op [facility]) [address] [place] [address] [place], [address], 01/12/2024 15:06:19 01/12/20 24 01/12/2024 COMP METAB OLIC PANEL ALT (SGPT) 78 IU/L 0-50 high Pleas e note new refer ence [place] for ALT. Due to a recen t manuf actur er metho dolog y chester e, the refer ence [place] for ALT is lower effec tive August 03, 2020. Not Available [facility] (Pre[facility]Op [facility]) [address] [place] [address] [place], [address], 01/12/2024 15:06:19 01/12/2001/12/2024 COMP METAB OLIC PANEL alk phosphatase 64 IU/L 38-126 Not Available [facility] (Pre-Op Clinic) [address] [place] [address] [place], [address], 01/12/2024 15:06:19 01/12/20 24 01/12/2024 COMP METAB OLIC PANEL note Unles s other joseph noted testi ng perfo rmed at: [facility] [address] [place] [address] Isac guthrie MD Not Available [facility] (Pre[facility]Op [facility]) [address] [place] [address] [place], [address], 01/12/2024 15:06:19 01/12/20 24 01/12/2024 IRON STUDY W FE/TI BC/UI BC/%S AT iron 124 ug/dL 49-181 Not Available [facility] (Pre[facility]Op [facility]) [address] [place] [address] [place], [address], 01/12/2024 15:12:02 01/12/20 24 01/12/2024 IRON STUDY W FE/TI BC/UI BC/%S AT total iron bind cap. 416 ug/dL 261-46 2 Not Available [facility] (Pre[facility]Op [facility]) [address] [place] [address] [place], [address], 01/12/2024 15:12:02 01/12/20 24 01/12/2024 IRON STUDY W FE/TI BC/UI BC/%S AT unsaturated iron binding cap 292 ug/dL 150-37 5 Not Available [facility] (Pre[facility]Op [facility]) [address] [place] [address] [place], [address], 01/12/2024 15:12:02 01/12/20 24 01/12/2024 IRON STUDY W FE/TI BC/UI BC/%S AT % saturation 30 % 15-55 Not Available [facility] (Pre[facility]Op [facility]) [address] [place] [address] [place], [address], 01/12/2024 15:12:02 01/12/20 24 01/12/2024 IRON STUDY W FE/TI BC/UI BC/%S AT note Unles s other joseph noted testi ng perfo rmed at: [facility] [address] [place] [address] Isac guthrie MD Not Available [facility] (Pre[facility]Op [facility]) [address] [facility] [place], [address], 01/12/2024 15:12:02 01/12/20 24 01/12/2024 KONSTANTIN TIN ferritin 118 NG/mL 5-244 Not Available [facility] (Pre[facility]Op [facility]) [address] [place] [address] [place], [address], 01/12/2024 15:39:15 01/12/20 24 01/12/2024 KONSTANTIN TIN note Unles s other joseph noted testi ng perfo rmed at: [facility] [address] [place] [address] Isac guthrie MD Not Available [facility] (Pre-Op [facility]) [address] [place] [address] [place], [address], 01/12/2024 15:39:15 03/30/20 24 03/31/2024 CBC, PLATE LET, NO DIFFE RENTI AL WBC 6.2 x10e3 /uL 3.4-10 .8 normal Not Available [facility] ([facility]) [address] [place], [address], 04/03/2024 16:10:08 03/30/20 24 03/31/2024 CBC, PLATE LET, NO DIFFE RENTI AL RBC 4.86 x10e6 /uL 4.14-5 .80 normal Not Available [facility] ([facility]) [address] [place], [address], 04/03/2024 16:10:08 03/30/20 24 03/31/2024 CBC, PLATE LET, NO DIFFE RENTI AL hemoglobin 15.1 g/dL 13.0-1 7.7 normal Not Available [facility] ([facility]) [address] [place], [address], 04/03/2024 16:10:08 03/30/20 24 03/31/2024 CBC, PLATE LET, NO DIFFE RENTI AL hematocrit 45.4 % 37.5-5 1.0 normal Not Available [facility] ([facility]) [address], [place], [address], 04/03/2024 16:10:08 03/30/20 24 03/31/2024 CBC, PLATE LET, NO DIFFE RENTI AL MCV 93 fL 79-97 normal Not Available [facility] ([facility]) [address], [place], [address], 04/03/2024 16:10:08 03/30/20 24 03/31/2024 CBC, PLATE LET, NO DIFFE RENTI AL MCH 31.1 pg 26.6-3 3.0 normal Not Available [facility] ([facility]) [address], [place], [address], 04/03/2024 16:10:08 03/30/20 24 03/31/2024 CBC, PLATE LET, NO DIFFE RENTI AL MCHC 33.3 g/dL 31.5-3 5.7 normal Not Available [facility] ([facility]) [address], [place], [address], 04/03/2024 16:10:08 03/30/20 24 03/31/2024 CBC, PLATE LET, NO DIFFE RENTI AL RDW 12.2 % 11.6-1 5.4 Not Available [facility] ([facility]) [address], [place], [address], 04/03/2024 16:10:08 03/30/20 24 03/31/2024 CBC, PLATE LET, NO DIFFE RENTI AL platelets 291 x10e3 /uL 150-45 0 normal Not Available [facility] ([facility]) [address], [place], [address], 04/03/2024 16:10:08 03/30/20 24 03/31/2024 CBC, PLATE LET, NO DIFFE RENTI AL NRBC [employer] Not Available [facility] ([facility]) [address], [place], [address], 04/03/2024 16:10:08 03/30/20 24 03/31/2024 HEPAT IC FUNCT ION PANEL (7) protein, total 6.8 g/dL 6.0-8. 5 normal Not Available [facility] ([facility]) [address] [place], [address], 04/03/2024 16:10:09 03/30/20 24 03/31/2024 HEPAT IC FUNCT ION PANEL (7) albumin 4.8 g/dL 4.1-5. 1 normal Not Available [facility] ([facility]) [address], [place], [address], 04/03/2024 16:10:09 03/30/20 24 03/31/2024 HEPAT IC FUNCT ION PANEL (7) bilirubin, total 1.2 mg/dL 0.0-1. 2 normal Not Available [facility] ([facility]) [address] [place], [address], 04/03/2024 16:10:09 03/30/20 24 03/31/2024 HEPAT IC FUNCT ION PANEL (7) bilirubin, direct 0.28 mg/dL 0.00-0 .40 normal Not Available [facility] ([facility]) [address] [place], [address], 04/03/2024 16:10:09 03/30/20 24 03/31/2024 HEPAT IC FUNCT ION PANEL (7) alkaline phosphatase 89 IU/L 44-121 normal Not Available [facility] ([facility]) [address] [place], [address], 04/03/2024 16:10:09 03/30/20 24 03/31/2024 HEPAT IC FUNCT ION PANEL (7) AST (SGOT) 35 IU/L 0-40 normal Not Available [facility] ([facility]) [address] [place], [address], 04/03/2024 16:10:09 03/30/20 24 03/31/2024 HEPAT IC FUNCT ION PANEL (7) ALT (SGPT) 76 IU/L 0-44 above high normal Not Available [facility] ([facility]) [address], [place], [address], 04/03/2024 16:10:09 03/30/20 24 03/31/2024 PROTH ROMBI [...] range 2.5 - 3.5 Not Available [facility] ([facility]) [address], [place], [address], 04/03/2024 16:10:10 03/30/20 24 03/31/2024 PROTH ROMBI N TIME (PT), SERIA L prothrombin time 11.6 sec 9.1-12 .0 normal Not Available [facility] ([facility]) [address] [place], [address], 04/03/2024 16:10:10 03/30/20 24 03/31/2024 PROTH ROMBI N TIME (PT), SERIA L pdf . Not Available [facility] ([facility]) [address] [place], [address], 04/03/2024 16:10:10 03/30/20 24 04/03/2024 ENHAN BAILEE [...] 2019;7 3(1): 26-39 . Not Available [facility] ([facility]) [address] [place], [address], 04/03/2024 16:10:11 03/30/20 24 03/31/2024 KONSTANTIN TIN ferritin 278 NG/mL 30-400 normal Not Available [facility] ([facility]) [address] [place], [address], 04/03/2024 16:10:12 05/17/19 25 05/17/2024 CBC W/ AUTO DIFF WBC 5.93 K/uL 4.5-11 .5 Not Available [facility] ([facility]) [address] [place] [address] [place], [address], 05/17/2024 17:34:27 05/17/19 25 05/17/2024 CBC W/ AUTO DIFF RBC 4.37 M/uL 4.0-5. 4 Not Available [facility] ([facility]) [address] [place] [address] [place], [address], 05/17/2024 17:34:27 05/17/19 25 05/17/2024 CBC W/ AUTO DIFF HGB 13.9 g/dL 14.0-1 8.0 low Not Available [facility] (Pre-Op [facility]) [address] [place], [address], 05/17/2024 17:34:27 05/17/19 25 05/17/2024 CBC W/ AUTO DIFF HCT 40.5 % 40-54 Not Available [facility] ([facility]) [address] [place] [address] [place], [address], 05/17/2024 17:34:27 05/17/19 25 05/17/2024 CBC W/ AUTO DIFF MCV 92.7 fL 80.0-1 00.0 Not Available [facility] ([facility]) [address] [place] [address] [place], [address], 05/17/2024 17:34:27 05/17/19 25 05/17/2024 CBC W/ AUTO DIFF MCH 31.8 pg 26.0-3 2.0 Not Available [facility] ([facility]) [address] [place] [address] [place], [address], 05/17/2024 17:34:27 05/17/19 25 05/17/2024 CBC W/ AUTO DIFF MCHC 34.3 g/dL 32.0-3 6.0 Not Available [facility] ([facility]) [address] [place] [address] [place], [address], 05/17/2024 17:34:27 05/17/19 25 05/17/2024 CBC W/ AUTO DIFF RDW 13.3 % 11.5-1 4.5 Not Available [facility] ([facility]) [address] [place] [address] [place], [address], 05/17/2024 17:34:27 05/17/19 25 05/17/2024 CBC W/ AUTO DIFF platelet count 301 K/uL 142-42 4 Not Available [facility] ([facility]) [address] [place] [address] [place], [address], 05/17/2024 17:34:27 05/17/19 25 05/17/2024 CBC W/ AUTO DIFF MPV 9.8 fL 6.8-10 .2 Not Available [facility] ([facility]) [address] [place] [address] [place], [address], 05/17/2024 17:34:27 05/17/19 25 05/17/2024 CBC W/ AUTO DIFF neutrophil % 64.9 % 50-70 Not Available [facility] ([facility]) [address] [place] [address] [place], [address], 05/17/2024 17:34:27 05/17/19 25 05/17/2024 CBC W/ AUTO DIFF lymphocyte % 25.3 % 18.0-4 2.0 Not Available [facility] ([facility]) [address] [place] [address] [place], [address], 05/17/2024 17:34:27 05/17/19 25 05/17/2024 CBC W/ AUTO DIFF monocyte % 7.1 % 2.0-11 .0 Not Available [facility] ([facility]Op [facility]) [address] [place] [address] [place], [address], 05/17/2024 17:34:27 05/17/19 25 05/17/2024 CBC W/ AUTO DIFF eosinophil % 1.9 % 1.0-3. 0 Not Available [facility] ([facility]) [address] [place] [address] [place], [address], 05/17/2024 17:34:27 05/17/19 25 05/17/2024 CBC W/ AUTO DIFF basophil % 0.5 % 0.0-2. 0 Not Available [facility] ([facility]) [address] [place] [address] [place], [address], 05/17/2024 17:34:27 05/17/19 25 05/17/2024 CBC W/ AUTO DIFF immature granulocytes % 0.3 % 0.0-0. 8 Not Available [facility] ([facility]) [address] [place] [address] [place], [address], 05/17/2024 17:34:27 05/17/19 25 05/17/2024 CBC W/ AUTO DIFF nucleated red blood cells % 0.0 % Not Available [facility] ([facility]) [address] [facility] [place], [address], 05/17/2024 17:34:27 05/17/19 25 05/17/2024 CBC W/ AUTO DIFF neutrophil # 3.85 K/uL Not Available [facility] ([facility]) [address] [facility] [place], [address], 05/17/2024 17:34:27 05/17/19 25 05/17/2024 CBC W/ AUTO DIFF lymphocyte # 1.50 K/uL Not Available [facility] ([facility]) [address] [facility] [place], [address], 05/17/2024 17:34:27 05/17/19 25 05/17/2024 CBC W/ AUTO DIFF monocyte # 0.42 K/uL Not Available [facility] ([facility]) [address] [facility] [place], [address], 05/17/2024 17:34:27 05/17/19 25 05/17/2024 CBC W/ AUTO DIFF eosinophil # 0.11 K/uL Not Available [facility] ([facility]) [address] [facility] [place], [address], 05/17/2024 17:34:27 05/17/19 25 05/17/2024 CBC W/ AUTO DIFF basophil # 0.03 K/uL Not Available [facility] ([facility]) [address] [place] [address] [place], [address], 05/17/2024 17:34:27 05/17/19 25 05/17/2024 CBC W/ AUTO DIFF immature gramulocytes # 0.02 K/uL Not Available [facility] ([facility]) [address] [place] [address] [place], [address], 05/17/2024 17:34:27 05/17/19 25 05/17/2024 CBC W/ AUTO DIFF nucleated red blood cells # 0.00 k/uL Not Available [facility] ([facility]) [address] [place] [address] [place], [address], 05/17/2024 17:34:27 05/17/19 25 05/17/2024 CBC W/ AUTO DIFF manual differential NO Not Available [facility] ([facility]) [address] [place] [address] [place], [address], 05/17/2024 17:34:27 05/17/19 25 05/17/2024 CBC W/ AUTO DIFF note Unles s other joseph noted testi ng [facility] [address] [facility] [place] [address] Isac guthire MD Not Available [facility] ([facility]) [address] [place] [address] [place], [address], 05/17/2024 17:34:27 05/17/19 25 05/17/2024 COMP METAB OLIC PANEL sodium 139 mmol/ L 137-14 7 Not Available [facility] ([facility]) [address] [place] [address] [place], [address], 05/17/2024 18:54:31 05/17/19 25 05/17/2024 COMP METAB OLIC PANEL potassium 3.8 mmol/ L 3.5-5. 1 Not Available [facility] ([facility]) [address] [place] [address] [place], [address], 05/17/2024 18:54:31 05/17/19 25 05/17/2024 COMP METAB OLIC PANEL chloride 104 mmol/ L 98-110 Not Available [facility] ([facility]) [address] [place] [address] [place], [address], 05/17/2024 18:54:31 05/17/19 25 05/17/2024 COMP METAB OLIC PANEL carbon dioxide 23 mmol/ L 21-30 Not Available [facility] ([facility]) [address] [place] [address] [place], [address], 05/17/2024 18:54:31 05/17/19 25 05/17/2024 COMP METAB OLIC PANEL anion gap 12 mmol/ L 6-14 Not Available [facility] ([facility]) [address] [place] [address] [place], [address], 05/17/2024 18:54:31 05/17/19 25 05/17/2024 COMP METAB OLIC PANEL glucose 76 mg/dL 70-115 Not Available [facility] ([facility]) [address] [place] [address] [place], [address], 05/17/2024 18:54:31 05/17/19 25 05/17/2024 COMP METAB OLIC PANEL BUN 24 mg/dL 9-20 high Not Available [facility] ([facility]) [address] [place] [address] [place], [address], 05/17/2024 18:54:31 05/17/19 25 05/17/2024 COMP METAB OLIC PANEL creatinine 1.2 mg/dL 0.5-1. 5 Not Available [facility] ([facility]) [address] [place] [address] [place], [address], 05/17/2024 18:54:31 05/17/19 25 05/17/2024 COMP METAB OLIC PANEL BUN/creatini ne ratio 20 10-20 Not Available [facility] ([facility]) [address] [place] [address] [place], [address], 05/17/2024 18:54:31 05/17/19 25 05/17/2024 COMP METAB [...] chester ing kiney funct ion. Not Available [facility] ([facility]) [address] [place] [address] [place], [address], 05/17/2024 18:54:31 05/17/19 25 05/17/2024 COMP METAB OLIC PANEL osmolality (calculated) 292 mosmo l/kg 275-30 1 OSMOL ALITY IS A CALCU LATIO N UTILI ZING THE SERUM /PLAS MA SODIU M, GLUCO SE AND UREA NITRO GEN (BUN) LEVEL S. FOR THE MOST ACCUR ATE RESUL T A MEASU RED SERUM OSMOL ALITY IS SUGGE STED. Not Available [facility] ([facility]) [address] [place] [address] [place], [address], 05/17/2024 18:54:31 05/17/19 25 05/17/2024 COMP METAB OLIC PANEL total protein 7.3 g/dL 6.2-8. 2 Not Available [facility] ([facility]) [address] [place] [address] [place], [address], 05/17/2024 18:54:31 05/17/19 25 05/17/2024 COMP METAB OLIC PANEL albumin 4.7 g/dL 3.5-5. 0 Not Available [facility] ([facility]) [address] [place] [address] [place], [address], 05/17/2024 18:54:31 05/17/19 25 05/17/2024 COMP METAB OLIC PANEL calcium 9.1 mg/dL 8.5-10 .8 Not Available [facility] ([facility]) [address] [place] [address] [place], [address], 05/17/2024 18:54:31 05/17/19 25 05/17/2024 COMP METAB OLIC PANEL bilirubin total 1.4 mg/dL 0.2-1. 3 high Not Available [facility] ([facility]) [address] [place] [address] [place], [address], 05/17/2024 18:54:31 05/17/19 25 05/17/2024 COMP METAB OLIC PANEL AST (SGOT) 45 IU/L 17-59 Not Available [facility] ([facility]) [address] [place] [address] [place], [address], 05/17/2024 18:54:31 05/17/19 25 05/17/2024 COMP METAB OLIC PANEL ALT (SGPT) 111 IU/L 0-50 high Pleas e note new refer [place]ce [place] for ALT. Due to a recen t manuf actur er metho dolog y chester e, the refer ence [place] for ALT is lower effec tive August 03, 2020. Not Available [facility] ([facility]) [address] [place] [address] [place], [address], 05/17/2024 18:54:31 05/17/19 25 05/17/2024 COMP METAB OLIC PANEL alk phosphatase 73 IU/L 38-126 Not Available [facility] ([facility]) [address] [place] [address] [place], [address], 05/17/2024 18:54:31 05/17/19 25 05/17/2024 COMP METAB OLIC PANEL note Unles s other joseph noted testi ng perfo [facility]med at: [facility] [address] [place] [address] Isac guthrie MD Not Available [facility]) [address] [place] [address] [place], [address], 05/17/2024 18:54:31 05/17/19 25 05/17/2024 IRON STUDY W FE/TI BC/UI BC/%S AT iron 156 ug/dL 49-181 Not Available [facility]) [address] [place] [address] [place], [address], 05/17/2024 19:12:42 05/17/19 25 05/17/2024 IRON STUDY W FE/TI BC/UI BC/%S AT total iron bind cap. 364 ug/dL 261-46 2 Not Available [facility] ([facility]) [address] [place] [address] [place], [address], 05/17/2024 19:12:42 05/17/19 25 05/17/2024 IRON STUDY W FE/TI BC/UI BC/%S AT unsaturated iron binding cap 208 ug/dL 150-37 5 Not Available [facility] ([facility]) [address] [place] [address] [place], [address], 05/17/2024 19:12:42 05/17/19 25 05/17/2024 IRON STUDY W FE/TI BC/UI BC/%S AT % saturation 43 % 15-55 Not Available [facility] ([facility]) [address] [place] [address] [place], [address], 05/17/2024 19:12:42 05/17/19 25 05/17/2024 IRON STUDY W FE/TI BC/UI BC/%S AT note Unlgilda s other joseph noted testi ng perfo rmed at: [facility] [address] [place] [address] Isac guthrie MD Not Available [facility] ([facility]) [address] [place] [address] [place], [address], 05/17/2024 19:12:42 05/17/19 25 05/17/2024 KONSTANTIN TIN ferritin 69 NG/mL 5-244 Not Available [facility] ([facility]) [address] [place] [address] [place], [address], 05/17/2024 21:20:48 05/17/19 25 05/17/2024 KONSTANTIN TIN note Unlgilda s other joseph noted testi ng perfo rmed at: [facility] [address] [place] [address] Isac guthrie MD Not Available [facility] ([facility]) [address] [place] [address] [place], [address], 05/17/2024 21:20:48 Result Notes None recorded. Problems Name Problem SNOMED Code Status Onset Date Resolution Date Notes Provider Name and Address Organization Details Recorded Time Anxiety disorder 787122093 Active Aruna Muhammad null, [place] [facility] [place] 2 13:44:20 Serum amylase (pancreatic) outside reference range 679660184 Active Aruna Muhammad [place], [place] [facility] 2 13:44:20 Administrativ e reason for encounter 472146063 Active Aruna Muhammad null, [place] 2 13:44:20 Liver enzymes level above reference range 802397314 Active 2021 Andres Valdez PA-C [address] , [place], [address] , [place] 2 15:21:51 Steatotic liver disease 855674622 Active 2021 Andres Valdez PA-C [address] [facility], [place], [address] , [place] 2 15:22:08 Fatigue 07046858 Active 2021 Andres Valdez PA-C [address] , [place], [address] , [place] 2 15:22:15 Serum ferritin above reference range 692105952 Active 2021 Andres Valdez PA-C [address] , [place], [address] , [place] [facility] [place] 2 15:22:31 Metabolic dysfunction-a ssociated steatohepatit is 208748178 Active 2021 Andres Valdez PA-C [address], [place], [address] , [place] [facility] [place] 2 15:24:35 International normalized ratio above reference range 444815102 Active 2022 Andres Valdez PA-C [address], [place], [address] , [place] [facility] [place] 3 10:16:05 Problem Notes None recorded. Procedures Surgical History Date Name Laterality Status Provider Name and Address Organization Details Recorded Time 05/17/19 25 Venipuncture completed Sofiya Bolden [place] 05/17/2024 13:50:17 03/30/20 24 Venipuncture Gastro completed Zenaida [place]renas [place] 03/30/2024 16:27:08 01/12/20 24 Venipuncture completed Shahnaz Bass [place] 01/12/2024 13:48:58 10/09/19 24 Venipuncture completed Glendy [place] 10/09/2023 15:44:01 04/04/20 23 hernia repair completed Glendy Ferrebee [place] 10/09/2023 15:25:31 04/14/19 04 vasectomy completed Glendy Ferrebee [place] 10/09/2023 15:26:21 04/14/19 00 operation on varicocele completed Glendy Ferrebee [place] 10/09/2023 15:26:06 Imaging Results None recorded. Procedure [...] Updated DateTime 5 180.34 cm 31.9 kg/m2 473929. 65 g 96.9 [degF] 94 % 94 % 75 /min 140 mm[Hg] 85 mm[Hg] Sofiya Bolden [place] - [place] [facility] & [place] 5 13:24:49 Date Recorded Body height Body mass index (BMI) Body weight Body temperature Heart rate Oxygen saturation Oxygen saturation in Arterial blood by Pulse oximetry Heart rate Systolic blood pressure Diastolic blood pressure Provider Name and Address Organization Details Last Updated DateTime 4 180.34 cm 29.3 kg/m2 13149.8 3 g 97.9 [degF] 66 /min 98 % 98 % 65 /min 163 mm[Hg] 98 mm[Hg] Jessie Rousseauwell [place] - [place] [facility] & [place] 4 14:09:28 Date Recorded Body height Body mass index (BMI) Body weight Body temperature Oxygen saturation Oxygen saturation in Arterial blood by Pulse oximetry Heart rate Systolic blood pressure Diastolic blood pressure Provider Name and Address Organization Details Last Updated DateTime 4 180.34 cm 29.6 kg/m2 19608.3 8 g 97.4 [degF] 96 % 96 % 67 /min 129 mm[Hg] 86 mm[Hg] Glendy Maki [place] [facility] & [place] 4 15:20:22 Date Recorded Body height Body mass index (BMI) Body weight Body temperature Oxygen saturation Oxygen saturation in Arterial blood by Pulse oximetry Heart rate Systolic blood pressure Diastolic blood pressure Provider Name and Address Organization Details Last Updated DateTime 4 180.34 cm 31.4 kg/m2 829658 g 96.8 [degF] 96 % 96 % 72 /min 138 mm[Hg] 83 mm[Hg] Shahnaz Bass [place] [facility] & [place] 4 13:26:37 Date Recorded Body height Body mass index (BMI) Body weight Body temperature Oxygen saturation Oxygen saturation in Arterial blood by Pulse oximetry Heart rate Systolic blood pressure Diastolic blood pressure Provider Name and Address Organization Details Last Updated DateTime 4 180.34 cm 32.4 kg/m2 468240. 87 g 97.9 [degF] 94 % 94 % 79 /min 152 mm[Hg] 99 mm[Hg] Zenaida Arenas [place] [facility] & [place] 15:45:59 Social History Question Answer Notes LastModified by [employer] Details LastModified Time Tobacco Smoking Status Former Smoker Bettina boyd, [place] - [facility] & [place] 08/28/2022 10:39:25 Do You Have An Advance Directive? No Information not available 08/28/2022 Are You Blind Or Do You Have Difficulty Seeing? No Information not available 08/28/2022 What Is Your Level Of Caffeine Consumption? Moderate Information not available 10/09/2023 When Did You Quit Smoking? 1-5yearssince lastcigarette Information not available 10/09/2023 What Was The Date Of Your Most Recent Tobacco Screening? 01/13/2022 Information not available 08/28/2022 What Is Your Current Pack Years? 30ormorepacky ears Information not available 10/09/2023 At What Age Did You Start Smoking Tobacco? 13 Information not available 10/09/2023 Are You Passively Exposed To Smoke? No Information not available 08/28/2022 How Much Tobacco Do You Smoke? No Information not available 08/28/2022 How Many Years Have You Smoked Tobacco? 30 Information not available 08/28/2022 Sex: Male Functional Status Question Answer Note LastModified by [employer] Details LastModified Time Do you use any illicit or recreational drugs? No Information not available 08/28/2022 What is your level of alcohol consumption? Moderate Information not available 08/28/2022 Do you or have you ever used smokeless tobacco? Former smokeless tobacco user Information not available 08/28/2022 What is your exercise level? Occasional Information not available 08/28/2022 Mental Status Question Answer Note LastModified by Organization [employer] LastModified Time Do you feel stressed (tense, restless, nervous, or anxious, or unable to sleep at night)? [id number] Information not available 08/28/2022 Family History Relationship Description Onset Age of this Age Resolved Age Notes LastModified by Organization Details LastModified Time Father No current problems or disability prosta te cancer [email or web address] Not available 10/09/2023 15:23:04 Mother No current problems or disability CHF [email or web address] Not available 10/08 15:23:16 Medical History Condition Response Allergies (Food, seasonal, environmental ) N Gout N Anxiety/Depression N Thyroid Disease N Atrial Fibrillation N Colon Cancer N Hyperthyroidism N Breast Cancer N Emphysema N COPD N Lung Disease N Hypothyroidism N Anesthesia Complications N Lung Mass N Autoimmune disease N Arthritis Y Blood Clot N Acid Reflux (GERD) Y Cancer N Bladder or Kidney Problems N High Cholesterol N Liver Disease Y Arrhythmia N Fibromyalgia N Kidney Disease N Allergies/Hayfever N Brain Tumors N Anemia N Multiple Sclerosis N Diabetes N Congestive Heart Failure (CHF) N Hyperlipidemia N Back Problems Y Diverticulitis N GERD/Reflux Y Aneurysm N Heart Disease N Hypertension N Osteoporosis N Past Encounters Encounter ID Performer Location Encounter Start Date Encounter Closed Date Diagnosis/Indication Diagnosis SNOMED-CT Code Diagnosis ICD10 Code Diagnosis Note [id number] Andres Valdez PA-C [facility] [place] [address] 2 01/29/2022 14:48:17 01/29/2022 15:22:38 Liver enzymes level above reference range 952442211 R74.01 Steatotic liver disease 201521087 K76.0 Fatigue 78747479 R53.83 Serum ferr itin above reference range 590769941 R77.8 [id number] Andres Valdez PA-C [facility] [place] [address] 2 08/28/2022 10:18:28 08/28/2022 11:15:55 Liver enzymes level above reference range 786675483 R74.01 Steatotic liver disease 225585512 K76.0 Fatigue 16037363 R53.83 Serum ferr itin above reference range 453023106 R77.8 [id number] Andres Valdez PA-C [facility] [place] [address] 2 09/20/2022 10:41:35 09/20/2022 11:19:07 Steatotic liver disease 683833684 K76.0 Serum ferr itin above reference range 447189250 R77.8 Metabolic dysfunction-associate d steatohepatitis 818527316 K75.81 Liver enzy mes level above reference range 690339291 R74.01 Fatigue 70211887 R53.83 [id number] Andres Valdez PA-C [facility] [address] [address] 11/13/2022 09:12:16 11/13/2022 10:27:35 Steatotic liver disease 178272327 K76.0 Serum ferr itin above reference range 164467796 R77.8 Metabolic dysfunction-associate d steatohepatitis 859040115 K75.81 Fatigue 09204251 R53.83 [id number] Andres Valdez PA-C [facility] [address] [id number] 03/25/2023 10:05:21 03/25/2023 10:46:36 Steatotic liver disease 971812559 K76.0 Serum ferr itin above reference range 654183439 R77.8 Metabolic dysfunction-associate d steatohepatitis 944919506 K75.81 Fatigue 07557284 R53.83 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 Internatio nal normalized ratio above reference range 997806043 R79.1 [id number] Andres Valdez PA-C [facility] [address] [address] 09/23/2023 13:47:29 09/23/2023 15:05:12 Steatotic liver disease 893602708 K76.0 Serum ferr itin above reference range 414722667 R77.8 Metabolic dysfunction-associate d steatohepatitis 493777661 K75.81 Fatigue 02740867 R53.83 Carrier of hemochromatosis HFE gene mutation 331574512 Z14.8 Internatio nal normalized ratio above reference range 389212376 R79.1 [id number] Kimberly Meza PA-C [facility] [place] [id number] 10/09/2023 15:02:08 10/09/2023 15:49:31 Serum ferritin above reference range 726794082 R77.8 Records show patient has 1 copy of heterozygo us hemochroma tosis mutation but unable to find results in chart review.Lab s Gastroente rology on September 23, 2023 show white blood cell count 7.2 red blood cell count 5.11 hemoglobin 16.1 hematocrit 48.3 platelet count 348132. elevated ferritin 623. Discussed with patient ordering mutation test today. Discussed therapeuti c phlebotomi es weekly to maintain a goal of ferritin less than 50 due to patient's past medical history of fatty liver disease. Will follow-up on therapeuti c phlebotomi es. Steatotic liver disease [id number] K76.0 Patient has a past medical history of fatty liver disease and is currently being followed with [facility]. [id number] Kimberly Meza PA-C [facility] [address] [place] [address] 01/12/2024 13:22:26 01/12/2024 13:47:20 Serum ferritin above reference range [id number] R77.8 Records show patient has 1 copy of heterozygo us hemochroma tosis mutation but unable to find results in chart review.Lab s [facility] on September 23, 2023 show white blood cell count 7.2 red blood cell count 5.11 hemoglobin 16.1 hematocrit 48.3 platelet count 364444. elevated ferritin 623. Discussed with patient ordering [...] being followed with [facility]. Hereditary hemochromatosis [id number] E83.110 Records show patient has 1 copy of heterozygo us hemochroma tosis mutation but unable to find results in chart review.Lab s [facility] on September 23, 2023 show white blood cell count 7.2 red blood cell count 5.11 hemoglobin 16.1 hematocrit 48.3 platelet count 493145. elevated ferritin 623.Luis Eduardo de la cruz presents to clinic on January 12, 2024. Patient has been doing therapeuti c phlebotomi es over in [facility]. Patient tolerating them very well. Discussed ordering additional labs today will follow-up and likely continue with therapeuti c phlebotomi es when needed. [id number] Andres Valdez PA-C [facility] [address] [place] [address] 03/30/2024 15:28:56 03/30/2024 16:05:39 Steatotic liver disease [id number] K76.0 Serum ferr itin above reference range [id number] R77.8 Metabolic dysfunction-associate d steatohepatitis [id number] K75.81 Carrier of hemochromatosis HFE gene mutation [id number] Z14.8 [id number] Kimberly Meza PA-C [facility]-[address] [place] [address] 05/17/2024 13:16:53 05/17/2024 13:46:54 Hereditary hemochromatosis [id number] E83.110 Records show patient has 1 copy of heterozygo us hemochroma tosis mutation but unable to find results in chart review.Lab s [facility] on September 23, 2023 show white blood cell count 7.2 red blood cell count 5.11 hemoglobin 16.1 hematocrit 48.3 platelet count 309394. elevated ferritin 623.Luis Eduardo t presents to clinic on January 12, 2024. Patient has been doing therapeuti c phlebotomi es over in [facility]. Patient tolerating them very well. Discussed ordering additional labs today will follow-up and likely continue with therapeuti c phlebotomi es when needed. Patient presents to clinic on May 17, 2024. Patient has been having therapeuti c phlebotomi es performed. Will repeat labs to evaluate if continued phlebotomi es are needed at this time. Serum ferr itin above reference range [id number] R77.8 Records show patient has 1 copy of heterozygo us hemochroma tosis mutation but unable to find results in chart review.Lab s [facility] on September 23, 2023 show white blood cell count 7.2 red blood cell count 5.11 hemoglobin 16.1 hematocrit 48.3 platelet count [id number]. elevated ferritin 623. Discussed with patient ordering mutation test today. Discussed therapeuti c phlebotomi es weekly to maintain a goal of ferritin less than 50 due to patient's past medical history of fatty liver disease. Will follow-up on therapeuti c phlebotomi es. Steatotic liver disease [id number] K76.0 Patient has a past medical history [...] HUMANA () Tad De La Cruz Ewing [phone] Tad De La Cruz Ewing 05/18/2024 1 WEST - TRIWEST () Tad De La Cruz Ewing [id number] Tad T Ewing 11/01/2023 1 *SELF PAY* La thao Ewing 05/17/2024 1 EAST - HUMANA () Tad Sarah Ewing [id number] Tad Ewing Notes Date Note Type Note Provider [...] alcohol consumption on weekends. Andres Valdez PA-C [address], [place], [address], [place] - [place] - [place] & [place] 09/23/2023 14:49:06 10/09/2023 text/html 48-year-old male presents [...] 5.11 hemoglobin 16.1 hematocrit 48.3 platelet count 472990. elevated ferritin 623. Discussed with patient ordering mutation test today. Discussed therapeutic phlebotomies weekly to maintain a goal of ferritin less than 50 due to patient's past medical history of fatty liver disease. Will follow-up on therapeutic phlebotomies. [address], [place], [address], [facility] & [place] 10/09/2023 16:03:36 01/12/2024 text/html 48-year-old male presents [...] 5.11 hemoglobin 16.1 hematocrit 48.3 platelet count 368068. elevated ferritin 623. Discussed with patient ordering mutation test today. Discussed therapeutic phlebotomies weekly to maintain a goal of ferritin less than 150 due to patient's past medical history of fatty liver disease. Will follow-up on therapeutic phlebotomies. Patient presents to clinic on January 12, 2024. Patient has been doing therapeutic phlebotomies over in [facility]. Patient tolerating them very well. Discussed ordering additional labs today will follow-up and likely continue with therapeutic phlebotomies when needed. Kimberly Meza PA-C [address], [place], [address], [facility] & [place] 01/12/2024 13:53:36 03/30/2024 text/html Mr. Ewing is [...] complaints at this time. [address], [place], [address], [facility] & [place] 03/30/2024 16:37:50 05/17/2024 text/html 49-year-old male presents [...] 5.11 hemoglobin 16.1 hematocrit 48.3 platelet count 682478. elevated ferritin 623. Discussed with patient ordering mutation test today. Discussed therapeutic phlebotomies weekly to maintain a goal of ferritin less than 150 due to patient's past medical history of fatty liver disease. Will follow-up on therapeutic phlebotomies. Patient presents to clinic on January 12, 2024. Patient has been doing therapeutic phlebotomies over in [facility]. Patient tolerating them very well. Discussed ordering additional labs today will follow-up and likely continue with therapeutic phlebotomies when needed. Patient presents to clinic on May 17, 2024. Patient has been having therapeutic phlebotomies performed. Will repeat labs to evaluate if continued phlebotomies are needed at this time. Kimberly Meza PA-C [address] , [place], [address], [facility] - [facility] & [place] 05/17/2024 13:51:29
[2024-09-23 15:27] LABS: Ferritin 114 ng/ml (17.9-464)
== END 2024-09-23 23:59 | disposition home or self-care (01) ==
LOC: INF 14:32
PROVIDERS: PCP Nurse Practitioner Family; Visit Provider Physician Assistant
DX: Z00.01 Encounter for general adult medical examination with abnormal findings (principal)
CPT/HCPCS: 36415; 82728; 85014; 85018

== ENCOUNTER 2024-10-22 15:22 | Outpatient (CLI) | payer OTHER, SELFPAY ==
--- OUTSIDE RECORDS SUMMARY | 2024-10-22 15:25 | XMS_ITS | Continuity of Care Document ---
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 Name Role Phone [facility] Unavailable Unavailable Problems Combined list of problems [...] Condition DoD UPPER RESPIRATORY INFECTION Inactive Condition [facility] visit for: pre-employment physical Active Condition DoD tobacco use Active Condition DoD ankle joint pain Active Condition DoD CHEST PAIN Active Condition DoD PALPITATIONS Active Condition DoD LATERAL EPICONDYLITIS (TENNIS ELBOW) RIGHT Active Condition DoD ANKLE SPRAIN Inactive Condition DoD deployment Active Condition DoD OPEN WOUND FINGERS LEFT RING FINGER Active Condition [facility] Patient Counseling: Active Condition DoD feared medical condition not demonstrated Active Condition DoD lump in / on the skin Active Condition DoD drowsiness [Sx] Active Condition [facility] COMMON COLD Active Condition [facility] visit for: administrative purpose Inactive Condition 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 [facility] NICOTINE DEPENDENCE Inactive Condition Pt provided a handout on chantix and counseled on tobacco cessation. He will review this document and follow up as needed for initiation of therapy. 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 (MED) complet ed influenza , live, intranasa l, quadrival ent DoD influenza virus vaccine, live, attenuated, for intranasal use 19 2011 [id number] [employer] (MED) complet ed influenza virus vaccine, live, attenuate d, for intranasa l use DoD influenza virus vaccine, live, attenuated, for intranasal use 18 2010 [id number] 111 [facility]. (MED) complet ed influenza virus vaccine, live, attenuate d, for intranasa l use DoD influenza virus vaccine, live, attenuated, for intranasal use 1 2009 [id number] 111 [facility] (MED) complet ed influenza virus vaccine, live, attenuate d, for intranasa l use DoD hepatitis B vaccine, adult dosage 3 2009 [id number] 43 [facility] (SKB) complet ed hepatitis B vaccine, adult dosage DoD tetanus toxoid, reduced diphtheria toxoid, and acellular pertu is vaccine, adsorbed 1 2009 [id number] [facility] tetanus toxoid, reduced diphtheri a toxoid, and acellular pertussis vaccine, adsorbed DoD Novel influenza-H1N 1-09, injectable 1 2009 [id number] 127 [employer]. (NOV) complet ed Novel influenza -O4B0-31, injectabl e DoD hepatitis B vaccine, adult dosage 2 2008 [id number] 43 [facility] complet ed hepatitis B vaccine, adult dosage DoD anthrax vaccine 9 2008 [id number] 24 [facility] complet ed anthrax vaccine DoD hepatitis B vaccine, adult dosage 1 2008 [id number] 43 [facility] (SKB) complet ed hepatitis B vaccine, adult dosage DoD typhoid Vi capsular polysaccharid e vaccine 1 2008 [id number] 101 [employer] Pasteur ([facility]) complet ed typhoid Vi capsular polysacch aride vaccine DoD influenza virus vaccine, live, attenuated, for intranasal use 1 2008 [id number] 111 [facility] (MED) complet ed influenza virus vaccine, live, attenuate d, for intranasa l use DoD influenza virus vaccine, live, attenuated, for intranasal use 1 2007 [id number] 111 [facility] (MED) complet ed influenza virus vaccine, live, attenuate d, for intranasa l use DoD influenza virus vaccine, live, attenuated, for intranasal use 1 2006 [id number] 111 [employer] (MED) complet ed influenza virus vaccine, live, attenuate d, for intranasa l use DoD tuberculin skin test; purified protein derivative solution, intradermal 1 2006 Unknown, Provider [id number] 96 [facility] Pasteur ([facility]) complet ed tuberculi n skin test; purified protein derivativ e solution, intraderm al DoD influenza virus vaccine, split virus (incl. purified surface antigen)-reti red CODE 1 2005 [id number] 15 [facility] ([facility]) complet ed influenza virus vaccine, split virus (incl. purified surface antigen)- retired CODE DoD anthrax vaccine 9 2005 [id number] 24 [facility] ([facility]) complet ed anthrax vaccine DoD typhoid vaccine, parenteral, other than acetone-kille d, dried 1 2005 [id number] 41 [facility] ([facility]) complet ed typhoid vaccine, parentera l, other than acetone-k illed, dried DoD varicella virus vaccine 0 2005 21 () Not Given varicella virus vaccine DoD influenza virus vaccine, split virus (incl. purified surface antigen)-reti red CODE 1 2004 [id number] 15 [facility] ([facility]) complet ed influenza virus vaccine, split virus (incl. purified surface antigen)- retired CODE DoD influenza virus vaccine, whole virus 1 2004 [id number] 16 [facility] ([facility]) complet ed influenza virus vaccine, whole virus DoD influenza virus vaccine, live, attenuated, for intranasal use 1 2004 [id number] 111 [employer] (MED) complet ed influenza virus vaccine, live, attenuate d, for intranasa l use DoD influenza virus vaccine, live, attenuated, for intranasal use 0 2004 111 () complet ed influenza virus vaccine, live, attenuate d, for intranasa l use DoD anthrax vaccine 8 2003 [id number] 24 [facility] ([facility]) complet ed anthrax vaccine DoD influenza virus vaccine, whole virus 0 2002 [id number] 16 [facility] ([facility]) complet ed influenza virus vaccine, whole virus DoD vaccinia (smallpox) vaccine 0 2002 [id number] 75 [employer] (MILENA) complet ed vaccinia (smallpox ) vaccine DoD anthrax vaccine 7 2002 [id number] 24 [facility] ([facility]) complet ed anthrax vaccine DoD tuberculin skin test; purified protein derivative solution, intradermal 1 2002 Unknown, Provider [id number] 96 Sanofi Pasteur ([facility]) complet ed tuberculi n skin test; purified protein derivativ e solution, intraderm al DoD meningococcal polysaccharid e vaccine (MPSV4) 0 2002 [id number] 32 [employer]i Pasteur ([facility]) complet ed meningoco ccal polysacch aride vaccine (MPSV4) DoD influenza virus vaccine, whole virus 0 2001 [id number] 16 [employer] Pasteur ([facility]) complet ed influenza virus vaccine, whole virus DoD influenza virus vaccine, whole virus 0 2000 [id number] 16 [employer] Pasteur ([facility]) complet ed influenza virus vaccine, whole virus DoD typhoid Vi capsular polysaccharid e vaccine 0 2000 101 () complet ed typhoid Vi capsular polysacch aride vaccine DoD tuberculin skin test; purified protein derivative solution, intradermal 1 2000 Unknown, Provider [id number] 96 [employer] (CON) complet ed tuberculi n skin test; purified protein derivativ e solution, intraderm al DoD tuberculin skin test; purified protein derivative solution, intradermal 1 2000 Unknown, Provider [id number] 96 [employer] (CON) complet ed tuberculi n skin test; purified protein derivativ e solution, intraderm al DoD influenza virus vaccine, whole virus 0 1999 [id number] 16 [employer] (MILENA) complet ed influenza virus [...] a toxoid) DoD anthrax vaccine 6 1998 [id number] 24 [facility] ([facility]) complet ed anthrax vaccine DoD influenza virus vaccine, whole virus 0 [id number] 16 [facility] ([facility]) complet ed influenza virus vaccine, whole virus DoD anthrax vaccine 5 1998 [id number] 24 [facility] ([facility]) complet ed anthrax vaccine DoD tuberculin skin test; purified protein derivative solution, intradermal 1 1998 Unknown, Provider [facility] Jonathan (INEZ) complet ed tuberculi n skin test; purified protein derivativ e solution, intraderm al DoD influenza virus vaccine, whole virus 0 [id number] 16 [facility]) complet ed influenza virus vaccine, whole virus DoD influenza virus vaccine, whole virus 0 [id number] 16 [facility] ([facility]) complet ed influenza virus vaccine, whole virus DoD anthrax vaccine 4 1997 [id number] 24 [facility] ([facility]) complet ed anthrax vaccine [facility] influenza virus vaccine, whole virus 0 1997 16 () complet ed influenza virus vaccine, whole virus DoD anthrax vaccine 3 1997 [id number] 24 [facility] ([facility]) complet ed anthrax vaccine DoD anthrax vaccine 2 1997 FAV 020 24 [facility] ([facility]) complet ed anthrax vaccine DoD anthrax vaccine 1 1997 FAV 020 24 [facility] ([facility]) complet ed anthrax vaccine [facility] tuberculin skin test; purified protein derivative solution, intradermal 1 1997 Unknown, Provider INEZ Jonathan (INEZ) complet tuberculi n skin test; purified protein derivativ e solution, intraderm al [facility] influenza virus vaccine, whole virus 0 1996 16 () complet influenza virus vaccine, whole virus [facility] hepatitis A vaccine, adult dosage 2 1996 52 () complet hepatitis A vaccine, adult dosage DoD typhoid vaccine, parenteral, acetone-kille d, dried ([place]. ) 2 1995 53 () complet typhoid vaccine, parentera l, acetone-k illed, dried (.S. ) DoD yellow fever vaccine 0 1995 37 () complet yellow fever vaccine [facility] trivalent poliovirus vaccine, live, oral 0 1995 [...] DC Date Status Disposition Source [employer]([facility]) OUTPATIENT [id number] TO Galindo 02/28 Released with Work/Duty Limitations [employer]( light Surgeon s Office) [employer]([facility]) OUTPATIENT [id number] rtfs TO PETERS 03/21 Released w/o Limitations [employer]( light Surgeon s Office) [employer]([facility]) OUTPATIENT [id number] pha TO PETERS 04/11 Released w/o Limitations [employer](F light Surgeon s Office) [employer] TELE CONSULT [id number] JACKELYN Remy 04/12 [employer]( light Surgeon s Office) [employer]([facility]) OUTPATIENT [id number] dyslipi GERI Burroughs 05/08 Released w/o Limitations [employer]([facility]) [employer]([facility]) TELE CONSULT [id number] migrain e headach TO Escobar 06/26 [employer]( light Surgeon s Office) [employer]([facility]) TELE CONSULT [id number] TO Huizar 06/27 [employer]( light Surgeon s Office) [facility]) OUTPATIENT [id number] EVAL FOR MIGRAIN PARTHA EPPERSON I 10/24 Released w/o Limitations [employer](F amily Practic e) [facility]) OUTPATIENT [id number] h/a KELLY Vazquez 11/08 Released w/o Limitations [employer](F light Medicin e) [facility]) TELE CONSULT [id number] medicat ion [place]ISSANT-S ALLLINDA AMARALENDA A 02/20 [facility](F amily Practic e) [facility]) OUTPATIENT [id number] Deploym ent PHA IAIN LEO 03/03 Released w/o Limitations [facility]( amily Practic e) [facility]) TELE CONSULT [id number] Needs deploym ent meds. [employer] ALLCRISTIN LORENDA A 04/03 [facility](F amily Practic e) [facility]) OUTPATIENT [id number] DISCUSS CONCERN S WITH FLYING STATUS; PAIN IN ARMS AND LOWER BACK GRAND Chavo INMAN 11/24 Released w/o Limitations [facility](F [facility] Practic [facility]) [facility]) OUTPATIENT [id number] PHA/AUD IOGRAM JUNE FARRAR 03/31 Released w/o Limitations [facility](F [facility] Pract[facility] e) [facility]) OUTPATIENT [id number] CONSULT ABOUT FLYING STATUS GRAND Chavo INMAN 06/11 Released w/o Limitations [facility](F amily Practic e) [facility]) TELE CONSULT [id number] ERICK CHRISTOPHER 08/03 [facility](F light Medicin e) [facility]) OUTPATIENT [id number] FLU SYMPTOM S JOLENE PALOMO 03/30 Released w/o Limitations [employer](F [facility]ily Practic e) [employer]([facility]) OUTPATIENT [id number] pha KIANNA NATHALIE M 04/20 Released w/o Limitations [employer](F amily Practic e) [facility]) OUTPATIENT [id number] POSSIBL E SLEEP APNEA , PAIN ON EAR STACIAALFREDO MohanE R E 06/16 Released w/o Limitations [employer](F amily Practic e) [facility]) OUTPATIENT [id number] walk-in for suture check-u p STACIAJOLENE Mohan R E 07/14 Released w/o Limitations [employer](F amily Practic e) [facility]) OUTPATIENT [id number] SMOKING CESSATI ON STACIA, JOLENE R E 07/26 Released w/o Limitations [employer](F amily Practic e) [facility]) TELE CONSULT [id number] 72HR/LA B RESULTS LESLEY BOYD 08/09 [facility](F amily Practic e) [facility]) OUTPATIENT [id number] PHA OSWALDO GUERRERO L 03/02 Released w/o Limitations [employer](F amily Practic e) [facility]) OUTPATIENT [id number] BW/CW ANDRESSA HILLIARD 03/20 Released w/o Limitations [employer](F [facility] Practic [facility]) [facility] OUTPATIENT [id number] 05/03 Released w/o Limitations [facility] OUTPATIENT [id number] 08/23 Released w/o Limitations [employer] [facility] OUTPATIENT [id number] 08/25 Released w/o Limitations [employer] [facility] [facility] OUTPATIENT [id number] 09/28 Released w/o Limitations [facility]) OUTPATIENT [id number] Post Deploym ent CORINA SIMENTAL 10/31 Released w/o Limitations [employer](F amily Practic e) [facility]) OUTPATIENT [id number] RIGHT TENNIS ELBOW AND RIGHT ANKLE SPRAIN JAMIL CHRISTIE 01/02 Released w/o Limitations [employer](F amily Practic e) [employer]([facility]) TELE CONSULT [id number] Pt with xray results receive SACHIN Cormier 01/05 Referred for Appointment [employer](F amily Practic e) [employer]([facility]) OUTPATIENT [id number] SARMAD Sanchez 02/13 Released w/o Limitations [employer](F [facility] Practic e) [employer]([facility]) TELE CONSULT [id number] 72HR/NU RSE TCSACHIN DAVIDSON 04/03 Referred for Appointment [employer](F amily Practic e) [employer]([facility]) OUTPATIENT [id number] DISCUSS CHEST SITUATI ON DENELSBECK , JAMIL R 04/05 Released w/o Limitations [employer](F amily Practic e) [facility]) TELE CONSULT [id number] 72HR/NU RSE TCON DENELSBECK , JAMIL R 04/26 [employer](F [facility]ily Practic e) [employer]([facility]) TELE CONSULT [id number] sheldon r SACHIN JASSO 05/03 Referred for Appointment [employer](F am[facility] Practic e) [employer]([facility]) OUTPATIENT [id number] F/U HEART PALPATI ONS DENELSBECK , JAMIL R 05/10 Released w/o Limitations [employer](F amily Practic e) [employer]([facility]) TELE CONSULT [id number] MRI results receive SACHIN Cormier 05/23 Referred for Appointment [employer](F amily Practic e) [employer]([facility]) OUTPATIENT [id number] tracie margarita in CECILY Carreon 02/20 Released w/o Limitations [employer]([facility]) [employer]([facility]) OUTPATIENT [id number] MELQUIADES PINTO 03/15 Released w/o Limitations [employer]([facility]) [employer] OUTPATIENT [id number] heart beat fast and hard MELQUIADES BAEZ 12/19 Released w/o Limitations [employer]( am[facility] C) [employer](Phy sical Health Assessmen t) OUTPATIENT [id number] ANTONIA ADELA VÁSQUEZSANTA 02/25 Released w/o Limitations [employer](P hysical Health Assessm ent) [employer]([facility]) OUTPATIENT [id number] Notes Entered by: rGupo ADAMS 21 Sep 2012 0727 ------- ------- ------- ------- -- Chills/ Hot flashes /cough x5days ZOILA CINTRON 09/21 Released w/o Limitations [employer]([facility]) [employer](Opt [facility]metry Clinic) OUTPATIENT [id number] MANSOOR Paez 01/04 Released w/o Limitations [employer](O ptometr y Clinic) [employer] OUTPATIENT [id number] Would like to quit smoking with patches only, sent to clinic by MARCO CARIAS ROBERT J 02/03 Released w/o Limitations [employer]( [facility]) [employer] TELE CONSULT [id number] Notes Entered by: CECILY LARA 01 Mar 2013 0745 ------- ------- ------- ------- -- OME refCECILY Cook 03/01 [employer]( [facility]) [employer] OUTPATIENT [id number] SANDY METZ 03/22 Released w/o Limitations [employer]( [facility]) [employer] TELE CONSULT [id number] Notes Entered by: YANNICK VIEIRA 28 Apr 2013 1211 ------- ------- ------- ------- -- Network Results - Urology - 014 FreyaSANDY TORRES Smitha 04/28 [employer]([facility] RAP Index B) [employer]([facility]) OUTPATIENT [id number] burning sensati on in throat that woke pt up SANDY POPE Smitha 07/29 Released w/o Limitations [employer]([facility] RAP Index B) [employer]([facility] [employer]) OUTPATIENT [id number] retirme nt physica l IVONNENANOMick SANDY Smitha 08/26 Released w/o Limitations [employer]([facility] [employer]) Procedures Combined list of: 1) Procedures from [...] FOR OXYGEN SATURATION; SINGLE DETERMINATION 2 DoD REPAIR, COMPLEX, TRUNK; 1.1 CM TO 2.5 CM 0 DoD PURE TONE AUDIOMETRY (THRESHOLD); AIR ONLY 9 DoD PURE TONE AUDIOMETRY (THRESHOLD); AIR ONLY 9 DoD PURE TONE AUDIOMETRY (THRESHOLD); AIR ONLY 6 DoD [employer] Fitting Monofocals (Not For Aphakia) [employer] Fitting Monofocals (Not For Aphakia) [id number] MANSOOR DIAZ DoD Determination Of Refractive State Determination Of Refractive State 53765 3 MANSOOR DIAZ Ophthalmological New Patient Start Comprehensive Care Ophthalmological New Patient Start Comprehensive Care [id number] 3 MANSOOR DIAZ. [facility] ECG 12-Lead With Interpretation And Report ECG 12-Lead With Interpretation And Report [id number] MELQUIADES BAEZ [facility] ECG 12-Lead With Interpretation And Report ECG 12-Lead With Interpretation And Report [id number] 0 JAMIL CHRISTIE Elbow orthosis, elastic, prefabricated, includes fitting and adjustment (e.g., neoprene, Lycra) 0 JAMIL CHRISTIE Threshold Audiogram (Pure Tone) Threshold Audiogram (Pure Tone) [id number] OSWALDO GUERRERO [facility] Screening Test Of Visual Acuity, Quantitative, Bilateral Screening Test Of Visual Acuity, Quantitative, Bilateral [id number] NATHALIE HUTCHISON [facility] Threshold Audiogram (Pure Tone) Threshold Audiogram (Pure Tone) [id number] 9 NATHALIE HUTCHISON [facility] Threshold Audiogram (Pure Tone) Threshold Audiogram (Pure Tone) [id number] [phone] RAMANDEEP GALINDO K [facility] Threshold Audiogram (Pure Tone) Threshold Audiogram (Pure Tone) 38570 6 IAIN LEO [facility] Medical Nutrition Therapy Group (2 or More Individual(s)) Medical Nutrition Therapy Group (2 or More Individual(s)) [phone] GERI VGEA [facility] Social History Combined list of available smoking, tobacco, and other social history from Department of Defense and Veterans Affairs facilities. Social History Type Response Date Comment Sour e This section is an empty social history section. [facility]D
--- OUTSIDE RECORDS SUMMARY | 2024-10-22 15:26 | XMS_ITS | Continuity of Care Document ---
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 He is a moderate consumer of alcohol. He is a carrier of hemochromatosis and has a history of persistently elevated ferritin as well. Liver biopsy did not show any stainable iron. 1) MetALD: Suspect this is predominately driven by metabolic dysfunction. Alcohol cessation continues to be counseled. - Previous liver US was c/w steatosis. Liver biopsy with marked steatosis grade 1, stage 0-1. Few eosinophils noted that could indicate component of drug induced injury. No stainable iron seen. -He had success with weight loss via low carb dieting, but he has adhered only intermittently to this, resulting in inconsistent results. He plans to resume the diet. -Repeat labs today for continued monitoring. Obtain CURRAN fibrosure for continues monitoring for progression to advanced fibrosis. -Previously advised first-degree relatives to have genetic testing done for HH. -Immune to Hep A, previously vaccinated for hepatitis B. 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 No stainable iron on liver biopsy. He is established with hematology, currently undergoing therapeutic phlebotomy monthly. Ferritin is at goal of <150. He notes improvement in overall well being when ferritin is at goal. 3) Colorectal cancer screening: Schedule first avg risk screening colonoscopy. Follow-up 6 months in office, unless otherwise indicated by lab findings. Not available 09/28/2024 19:38:20 Plan of Treatment Reminders Order Date Submit Date Provider Last Modified By Organization Details Last Modified Time Details Appointments OV EST 30 2024 01:00P M Kimberly Meza PA-C Not available Not available Not available Establish ed Visit 15 min 2024 02:30P M Andres Tang PA-C Not available Not available Not available Lab CMP, serum or plasma 2024 025 [facility] (Registration ), [address], [place], [address], 09/29/2024 08:16:26 CBC [address] [place] [address] (Registration ), [address], [place], [address], 10/05/2024 09:54:33 iron + TIBC + ferritin, serum [address] [place] [address] (Registration ), [address], [place], [address], 10/05/2024 09:54:33 PT/INR [address] [place] [address] (Registration ), [address], [place], [address], 10/05/2024 09:54:33 nonalcoho lic steatohep atitis + fibrosis panel, serum or plasma [address] [place] [address] (Registration ), [address], [place], [address], 10/05/2024 09:54:33 HbA1c (hemoglob in A1c), blood [address] [place] [address] (Registration ), [address], [place], [address], 10/05/2024 09:54:33 lipid panel, serum 2024 025 [facility] (Registration ), [address], [place], [address], 10/05/2024 09:54:33 Referral None recorded. Procedures None recorded. Surgeries None recorded. Imaging None recorded. Medication Orders None recorded. Patient TargetsNo targets recorded. Patient Instructions Encounter Date Encounter Id Patient Instructions Last Modified By Organization Details Last Modified Time 09/28/2024 [id number] Patient Name: SE ALEC CROW Date of : 1975 Ordering MD: ANDRES TANG Date Collected : 11/04/2022 Date Received : 11/04/2022 Date Reported : 11/06/2022 Exam: Biopsy Laboratory#: [id number] Copies To: MARIELA BOWER [employer] Tender: Clinical History Elevation of levels of liver transaminase levels Comments There is marked steatosis with minimal inflammation and fibrosis. The presence of few eosinophils may indicate a component of drug injury. Clinical correlation is required. BodySite LIVER, NEEDLE CORE BIOPSIES Gross Description Labeled as liver core , consisting of 2 deleon needle cores averaging 1.5 x 0.1 x 0.1 cm, submitted entirely in cassette. SOG Microscopic Description There is marked steatosis without significant lobular inflammation. The portal tracts show slight expansion by a lymphohistiocytic infiltrate with few eosinophils. No plasma cells, bile duct dropout or granulomas are identified. There is minimal interface activity. No Legally authenticated by KEITH BHATIA 2022-11-06 09:50:00 iron is identified on the Prussian blue stain. The trichrome stain shows minimally increased portal fibrosis without sinusoidal fibrosis. All controls are adequate. Final Diagnosis Steatohepatitis with marked steatosis (grade 1 stage 0-1) Not available 09/28/2024 14:59:29 Reason for Referral None Reported. Problems Name Problem SNOMED Code Status Onset Date Resolution Date Notes Provider Name and Address Organization Details Recorded Time Metabolic dysfunction-a ssociated steatotic liver disease Active 2024 Andres Tang PA-C [address], [place], [address] , [facility] [place] [facility] [place] 06/17/202 5 15:14:20 Anxiety disorder 596063702 Active Aruna Muhammad null, [place] [facility] [place] [facility] [place] 2 13:44:20 Serum amylase (pancreatic) outside reference range 646979675 Active Aruna Muhammad null, [place] [facility] [place] 2 13:44:20 Administrativ e reason for encounter 590891005 Active Aruna Muhammad null, [place] [facility] [place] [facility] [place] 2 13:44:20 Liver enzymes level above reference range 843420603 Active [address], [place], [address] , [place] [facility] [place] [facility] [place] 2 15:21:51 Steatotic liver disease 232580834 Active [address], [place], [address] , [place] [facility] [place] [facility] [place] 2 15:22:08 Fatigue 14948431 Active [address] , [place], [address] , [place] [facility] [place] [facility] [place] 2 15:22:15 Serum ferritin above reference range 893175746 Active [address], [place], [address] , [place] [facility] [place] [facility] [place] 2 15:22:31 Metabolic dysfunction-a ssociated steatohepatit is 143388600 Active [address], [place], [address] , [place] [facility] [place] [facility] [place] 2 15:24:35 International normalized ratio above reference range 209917786 Active [address] , [place], [address] , [place] [facility] [place] 10:16:05 Problem Notes None recorded. Procedures Surgical History Date Name Laterality Status Provider Name and Address Organization Details Recorded Time 09/29/19 25 Venipuncture Gastro completed Andres Tang PA-C [address] [facility], [place], [address], [place] [facility] [place] [facility] [place] 09/28/2024 14:59:39 05/17/19 25 Venipuncture completed Sofiya Yuan [place] [facility] [place] 05/17/2024 13:50:17 03/30/20 24 Venipuncture Gastro completed Zenaida Deepa [place] [facility] [place] [facility] [place] 03/30/2024 16:27:08 01/12/20 24 Venipuncture completed Shahnaz Shelia [place] [facility] [place] 01/12/2024 13:48:58 10/09/19 24 Venipuncture completed Glendy [place] [facility] [place] 10/09/2023 15:44:01 04/04/20 23 hernia repair completed Glendy Ferrebee [place] [facility] [place] 10/09/2023 15:25:31 04/14/19 04 vasectomy completed Glendy Ferrebee [place] [facility] [place] 10/09/2023 15:26:21 04/14/19 00 operation on varicocele completed Glendy Ferrebee [place] [facility] [place] [facility] [place] 10/09/2023 15:26:06 Imaging Results None recorded. Procedure Notes None recorded. Medical Equipment None Reported. Allergies No known drug allergies Medications Name Sig Start Date Stop Date Status Note LastModified by Organization Details LastModified Time cyclobenzap rine 10 mg tablet TAKE ONE TABLET BY MOUTH EVERY DAY AT BEDTIME NEEDED FOR MUSCLE SPASMS MAY CAUSE DROWSINES S active Not Available Not Available No t Available amoxicillin 500 mg capsule TAKE ONE CAPSULE BY MOUTH EVERY 6 HOURS FOR 7 DAYS -- FINISH ALL MEDICINE -- 08/28 completed Not Available Not Available Not Available fluconazole 100 mg tablet TAKE ONE TABLET BY MOUTH EVERY DAY 06/27 /2024 completed Not Available Not Available Not Available [...] completed Not Available Not Available Not Available sodium,pota ssium,mag sulfates 17.5 gram-3.13 gram-1.6 gram oral soln TAKE DIRECTED PER INSTRUCTI ONS GIVEN BY DOCTOR'S OFFICE active Not Available Not Available No t Available diclofenac submicroniz ed 35 mg capsule Take 1 {capsule_ as_needed } 3 times a day by oral route. 08/28 completed Not Available Not Available Not Available Vitals Date Recorded Body height Body mass index (BMI) Body weight Body temperature Oxygen saturation Oxygen saturation in Arterial blood by Pulse oximetry Heart rate Systolic And Diastolic Provider Name and Address Organization Details Last Updated DateTime 180.34 cm 31.6 kg/m2 356202. 11 g 98.1 [degF] 99 % 99 % 86 /min 143/90 mm[Hg] Pennie Vail [facility] & [place] 14:36:17 Social History Question Answer Notes LastModified by Organizat ion Details LastModified Time Tobacco Smoking Status Former Smoker Bettina Mack deb, [facility] & [place] 08/28/2022 10:39:25 Do You Have An Advance [...] LastModified by Organizat ion Details LastModified Time Do you use any [...] anxious, or unable to sleep at night)? [id number] Information not available 08/28/2022 Family History Relationship [...] Hyperthyroidism N Breast Cancer N Emphysema N Hypothyroidism N Brain Tumors N Lung Disease N COPD N Anemia N Multiple Sclerosis N Anesthesia Complications N Lung Mass N Diabetes N Autoimmune disease N Arthritis Y Blood Clot N Congestive Heart Failure (CHF) N Acid Reflux (GERD) Y Hyperlipidemia N Cancer N Back Problems Y Diverticulitis N Bladder or Kidney Problems N High Cholesterol N GERD/Reflux Y Aneurysm N Liver Disease Y Heart Disease N Arrhythmia N Fibromyalgia N Hypertension N Osteoporosis N Kidney Disease N Past Encounters Encounter ID Performer Location Encounter Start Date Encounter Closed Date Diagnosis/Indication Diagnosis SNOMED-CT Code Diagnosis ICD10 Code Diagnosis Note [id number] Andres Tang PA-C [facility] [address] 09/28/2024 14:30:30 09/28/2024 15:27:19 Serum ferritin above reference range 784259789 R77.8 Carrier of hemochromatosis HFE gene mutation 121955219 Z14.8 Screening for malignant neoplasm of colon 071277354 Z12.11 -schedule first avg risks screening colonoscop y Metabolic dysfunction-associate d steatotic liver disease 2301320289 K76.0 F10.90 Health Concerns Section Related Observation LastModified by Organization Detai ls LastModified Time None Recorded Concern Status LastModified by Organization Details LastModified Time None Recorded Payers Encounter Date Sequence Insurance Name Policy Number Policy [employer] Covered Member ID [employer] Member ID Guarantor Name 09/28/2024 1 [facility] () Tad Ewing [id number] Tad Ewing Notes Date Note Type Note Provider Name and Address Organization Details Recorded Time 09/28/2024 text/html Mr. 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 He follows with hematology for intermittent therapeutic phlebotomy. His ferritin level has remained at goal of less than 150 over the past several months. He has had a 5.5 lb weight loss since he was last seen in our office 6 months ago. He reports continued moderate alcohol intake. He desires to cut back. He is feeling well overall at this time. He has not yet undergone average risk colorectal cancer screening. He denies a family history of colorectal cancer. Andres Tang PA-C [address], [place], [address], [facility] [place] [facility] [place] [facility] [place] 09/28/2024 19:38:55
--- OUTSIDE RECORDS SUMMARY | 2024-10-22 15:27 | XMS_ITS | Data Portability ---
Author Organization [place] - [facility] [place] [facility] [place] [facility] ADMIN Address [address] [place] [id number] Care Team Providers Care Aircraft Technician Name Role Phone SATHISH SIERRA Primary Care Provider Assessment Encounter Date Assessment Date Assessment LastModified by Organization Details LastModified Time 03/30/2024 03/30/2024 48 yo male with elevated liver enzymes felt to be due to VILLARREAL. He does report alcohol consumption on weekends. [...] at goal of <150. 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 [...] -Repeat labs today for continued monitoring. Obtain VILLARREAL fibrosure for continues monitoring for progression to [...] office, unless otherwise indicated by lab findings. [email or web address] Not available 09/28/2024 19:38:20 Plan of Treatment Reminders Order Date Submit Date Provider Last Modified By Organization Details Last Modified Time Details Appointments OV EST 30 2024 01:00P M Kimberly Meza PA-C Not available Not available Not available Establish ed Visit 15 min 2024 02:30P M Andres Valdez PA-C Not available Not available Not available Lab CMP, serum or plasma 2024 025 [facility] (Registration ), [address], [place], [address], 09/29/2024 08:16:26 CBC 2024 025 [facility] (Registration ), [address], [place], [address], 10/05/2024 09:54:33 iron + TIBC + ferritin, serum 2024 025 [facility] (Registration ), [address], [place], [address], 10/05/2024 09:54:33 PT/INR 2024 025 [facility] (Registration ), [address], [place], [address], 10/05/2024 09:54:33 nonalcoho lic steatohep atitis + fibrosis panel, serum or plasma 2024 025 [facility] (Registration ), [address], [place], [address], 10/05/2024 09:54:33 HbA1c (hemoglob in A1c), blood 2024 025 [facility] (Registration ), [address], [place], [address], 10/05/2024 09:54:33 lipid panel, serum 2024 025 [facility] (Registration ), [address] , [place], [address], 10/05/2024 09:54:33 CBC w/ auto diff 2024 025 [facility] (Lab Registration) , [address] [place] [address] [place], [address], 05/24/2024 07:59:21 iron + TIBC + ferritin, serum 2024 025 [facility] (Lab Registration) , [address] [place] [address] [place], [address], 05/24/2024 07:59:21 iron saturatio n, serum 2024 025 [facility] (Lab Registration) , [address] [place] [address] [place], [address], 05/24/2024 07:59:21 CMP, serum or plasma 2024 025 [email or web address] Mckeon [facility] (Lab Registration) , [address] [place] [address] [place], [address], 05/24/2024 07:59:21 CBC 2023 024 [facility], [address], [address], [place], [address], 04/03/2024 16:10:08 hepatic function panel, serum 2023 024 [facility], [address], [address], [place], [address], 04/03/2024 16:10:09 PT/INR 2023 024 [facility], [address], [address], [place], [address], 04/03/2024 16:10:10 liver fibrosis score, calculate d by ELF, serum or plasma 2023 024 [facility], [address], [address], [place], [address], 04/03/2024 16:10:11 ferritin, serum or plasma 2023 024 [facility], [address], [address], [place], [address], 04/03/2024 16:10:12 CBC w/ auto diff [email or web address] [place] [address] Ctr (Lab Registration) , [address] [place] [address] [place], [address], 01/19/2024 15:52:09 iron + TIBC + ferritin, serum [email or web address] [place] [address] Ctr (Lab Registration) , [address] [place] [address] [place], [address], 01/19/2024 15:52:10 iron saturatio n, serum [email or web address] [facility] (Lab Registration) , [address] [place] [address] [place], [address], 01/19/2024 15:52:10 CMP, serum or plasma [address] [facility] (Lab Registration) , [address] [place] [address] [place], [address], 01/19/2024 15:52:10 hemochrom atosis mutation (hfe), blood/tis qamar 2023 024 [facility] (Lab Registration) , [address] [place] [address] [place], [address], 11/04/2023 15:13:14 Referral None recorded. Procedures None recorded. Surgeries [...] x10e3 /uL 3.4-10 .8 Not Available [facility] [address] [place], [address], 09/24/2023 16:15:43 09/23/19 24 09/24/2023 CBC, PLATE LET, NO DIFFE RENTI AL RBC 5.11 x10e6 /uL 4.14-5 .80 Not Available [facility] [address] [facility], [place], [address], 09/24/2023 16:15:43 09/23/19 24 09/24/2023 CBC, PLATE LET, NO DIFFE RENTI AL hemoglobin 16.1 g/dL 13.0-1 7.7 Not Available [facility] [address] [facility], [place], [address], 09/24/2023 16:15:43 09/23/19 24 09/24/2023 CBC, PLATE LET, NO DIFFE RENTI AL hematocrit 48.3 % 37.5-5 1.0 Not Available [facility] [address] [facility], [place], [address], 09/24/2023 16:15:43 09/23/19 24 09/24/2023 CBC, PLATE LET, NO DIFFE RENTI AL MCV 95 fL 79-97 Not Available [facility] [address] [facility], [place], [address], 09/24/2023 16:15:43 09/23/19 24 09/24/2023 CBC, PLATE LET, NO DIFFE RENTI AL MCH 31.5 pg 26.6-3 3.0 Not Available [facility] [address] [facility], [place], [address], 09/24/2023 16:15:43 09/23/19 24 09/24/2023 CBC, PLATE LET, NO DIFFE RENTI AL MCHC 33.3 g/dL 31.5-3 5.7 Not Available [facility] [address] [facility], [place], [address], 09/24/2023 16:15:43 09/23/19 24 09/24/2023 CBC, PLATE LET, NO DIFFE RENTI AL RDW 12.4 % 11.6-1 5.4 Not Available [facility] [address] [facility], [place], [address], 09/24/2023 16:15:43 09/23/19 24 09/24/2023 CBC, PLATE LET, NO DIFFE RENTI AL platelets 320 x10e3 /uL 150-45 0 Not Available [facility] [address] [facility], [place], [address], 09/24/2023 16:15:43 09/23/19 24 09/24/2023 CBC, PLATE LET, NO DIFFE RENTI AL NRBC DIAMOND CLEANER Not Available [facility] [address] [facility] [place] [place], [address], 09/24/2023 16:15:43 09/23/19 24 09/24/2023 HEPAT IC FUNCT ION PANEL (7) protein, total 7.2 g/dL 6.0-8. 5 Not Available [facility] [address] [facility] [place] [place], [address], 09/24/2023 16:15:44 09/23/19 24 09/24/2023 HEPAT IC FUNCT ION PANEL (7) albumin 5.1 g/dL 4.1-5. 1 Not Available [facility] [address] [facility], [place], [address], 09/24/2023 16:15:44 09/23/19 24 09/24/2023 HEPAT IC FUNCT ION PANEL (7) bilirubin, total 1.6 mg/dL 0.0-1. 2 above high normal Not Available [facility] [address] [facility] [place] [place], [address], 09/24/2023 16:15:44 09/23/19 24 09/24/2023 HEPAT IC FUNCT ION PANEL (7) bilirubin, direct 0.29 mg/dL 0.00-0 .40 Not Available [facility] [address] [facility] [place] [place], [address], 09/24/2023 16:15:44 09/23/19 24 09/24/2023 HEPAT IC FUNCT ION PANEL (7) alkaline phosphatase 105 IU/L 44-121 Not Available [facility] [address] [facility] [place] [place], [address], 09/24/2023 16:15:44 09/23/19 24 09/24/2023 HEPAT IC FUNCT ION PANEL (7) AST (SGOT) 33 IU/L 0-40 Not Available [facility] [address] [facility], [place], [address], 09/24/2023 16:15:44 09/23/19 24 09/24/2023 HEPAT IC FUNCT ION PANEL (7) ALT (SGPT) 62 IU/L 0-44 above high normal Not Available [facility] [address] [place], [address], 09/24/2023 16:15:44 09/23/19 24 09/24/2023 PROTH ROMBI [...] range 2.5 - 3.5 Not Available [facility] [address] [facility], [place], [address], 09/24/2023 16:15:45 09/23/19 24 09/24/2023 PROTH ROMBI N TIME (PT), SERIA L prothrombin time 11.2 sec 9.1-12 .0 Not Available [facility] [address] [place], [address], 09/24/2023 16:15:45 09/23/19 24 09/24/2023 PROTH ROMBI N TIME (PT), SERIA L pdf . Not Available [facility] [address] [place], [address], 09/24/2023 16:15:45 09/23/19 24 09/24/2023 KONSTANTIN TIN ferritin 623 NG/mL 30-400 above high normal Not Available [facility]) [address], [place], [address], 09/24/2023 16:15:46 10/09/19 24 10/09/2023 HERED ITARY HEMOC HROMA TOSIS note Unles s other joseph noted testi ng perfo rmed at: [facility] [address] [place] [address] Isac guthrie MD Not Available [facility] (Pre-Op Clinic) [address] [place] [address] [place], [address], 11/04/2023 15:13:14 10/09/19 24 11/04/2023 HERED ITARY [...] op cirrh osis. Treat ment for clini ander sympt omati c indiv idual s may [...] organ damag e. . Brennen ic couns eling is recom berny d to discu ss the poten tial clini jian impli catio ns of posit arinane resul ts, as well as recom menda tions for testi ng famil y membe rs. Brennen ic Coord inato rs are avail able for healt h care provi ders to discu ss resul ts at [phone] . Test Detai ls: Three varia nts kaylin zed: c.845 G>A (p.Cy s282T yr), commo nly refer red to as C282Y c.187 C>G (p.Hi s63As p), commo nly refer red to as H63D c.193 A>T (p.Se r65Cy s), commo nly refer red to as S65C . Metho ds/Li mitat ions: DNA Kaylin sis of the HFE gene ([id number]) was perfo rmed by PCR ampli [...] e salas cteri stics deter mined by [facility]. It has not been clear ed or appro pancho by the Food and Drug Admin istra tion. . Refer ences : Manuel BR, Dandy PC, Cherriel ey [place], aJnie peacock [place], Laurie peacock ; Ameri can Assoc iatio n for the Study of Liver Disea ses. Diagn osis and manag ement of hemoc hroma tosis : 2010 pract ice guide line by the Ameri can Assoc iatio n for the Study of Liver Disea ses. Hepat ology . 2010;5 4(1): 328-4 3. doi: 10.10 / p.243 30. PMID: 00954 290; PMCID : PMC31 08458 . Shila G, King ot P, Moreno curran DW, Anna Marie r H, [place] rowan O, Jose n S, Alberlin o I, Jillian s M, Chris y S. EMQN best pract ice guide lines for the molec ular brennen ic diagn osis of hered itary hemoc hroma tosis (HH). Eur J Hum Brennen . 2016 Jul;2 4(4): 479-9 5. doi: 10.10 38/ej .20 15.12 8. Epub 2014Oct 19. PMID: 52161 218; PMCID : PMC49 39922 . Not Available [facility] ([facility]) [address] [place] [address] [place], [address], 11/04/2023 15:13:14 10/09/19 24 11/04/2023 HERED ITARY HEMOC HROMA TOSIS reviewed by: ELIZABETH Brito , PhD FAC Perfo rmed at: [facility] [address] , [place] [address] Lab Direc tor: Kole Tre [facility] , Phone : [phone] Not Available [facility] ([facility]) [address] [place] [address] [place], [address], 11/04/2023 15:13:14 01/12/20 24 01/12/2024 CBC W/ AUTO DIFF WBC 5.84 K/uL 4.5-11 .5 Not Available [facility] ([facility]) [address] [place] [address] [place], [address], 01/12/2024 14:36:35 01/12/20 24 01/12/2024 CBC W/ AUTO DIFF RBC 4.19 M/uL 4.0-5. 4 Not Available [facility] ([facility]) [address] [place] [address] [place], [address], 01/12/2024 14:36:35 01/12/20 24 01/12/2024 CBC W/ AUTO DIFF HGB 14.0 g/dL 14.0-1 8.0 Not Available [facility] ([facility]) [address] [place] [address] [place], [address], 01/12/2024 14:36:35 01/12/20 24 01/12/2024 CBC W/ AUTO DIFF HCT 40.5 % 40-54 Not Available [facility] (Pre-Op Clinic) [address] [place] [address] [place], [address], 01/12/2024 14:36:35 01/12/20 24 01/12/2024 CBC W/ AUTO DIFF MCV 96.7 fL 80.0-1 00.0 Not Available [facility] ([facility]) [address] [facility] [place], [address], 01/12/2024 14:36:35 01/12/20 24 01/12/2024 CBC W/ AUTO DIFF MCH 33.4 pg 26.0-3 2.0 high Not Available [facility] ([facility]) [address] [place] [address] [place], [address], 01/12/2024 14:36:35 01/12/20 24 01/12/2024 CBC W/ AUTO DIFF MCHC 34.6 g/dL 32.0-3 6.0 Not Available [facility] ([facility]) [address] [place] [address] [place], [address], 01/12/2024 14:36:35 01/12/20 24 01/12/2024 CBC W/ AUTO DIFF RDW 13.0 % 11.5-1 4.5 Not Available [facility] ([facility]) [address] [place] [address] [place], [address], 01/12/2024 14:36:35 01/12/20 24 01/12/2024 CBC W/ AUTO DIFF platelet count 287 K/uL 142-42 4 Not Available [facility] ([facility]) [address] [place] [address] [place], [address], 01/12/2024 14:36:35 01/12/20 24 01/12/2024 CBC W/ AUTO DIFF MPV 10.0 fL 6.8-10 .2 Not Available [facility] ([facility]) [address] [place] [address] [place], [address], 01/12/2024 14:36:35 01/12/20 24 01/12/2024 CBC W/ AUTO DIFF neutrophil % 63.2 % 50-70 Not Available [facility] ([facility]) [address] [place] [address] [place], [address], 01/12/2024 14:36:35 01/12/20 24 01/12/2024 CBC W/ AUTO DIFF lymphocyte % 24.7 % 18.0-4 2.0 Not Available [facility] ([facility]) [address] [place] [address] [place], [address], 01/12/2024 14:36:35 01/12/20 24 01/12/2024 CBC W/ AUTO DIFF monocyte % 8.7 % 2.0-11 .0 Not Available [facility] ([facility]) [address] [place] [address] [place], [address], 01/12/2024 14:36:35 01/12/20 24 01/12/2024 CBC W/ AUTO DIFF eosinophil % 2.2 % 1.0-3. 0 Not Available [facility] ([facility]) [address] [place] [address] [place], [address], 01/12/2024 14:36:35 01/12/20 24 01/12/2024 CBC W/ AUTO DIFF basophil % 0.5 % 0.0-2. 0 Not Available [facility] ([facility]) [address] [place] [address] [place], [address], 01/12/2024 14:36:35 01/12/20 24 01/12/2024 CBC W/ AUTO DIFF immature granulocytes % 0.7 % 0.0-0. 8 Not Available [facility] ([facility]Op [facility]) [address] [place] [address] [place], [address], 01/12/2024 14:36:35 01/12/20 24 01/12/2024 CBC W/ AUTO DIFF nucleated red blood cells % 0.0 % Not Available [facility] ([facility]Op [facility]) [address] [place] [address] [place], [address], 01/12/2024 14:36:35 01/12/20 24 01/12/2024 CBC W/ AUTO DIFF neutrophil # 3.69 K/uL Not Available [facility] ([facility]) [address] [place] [address] [place], [address], 01/12/2024 14:36:35 01/12/20 24 01/12/2024 CBC W/ AUTO DIFF lymphocyte # 1.44 K/uL Not Available [facility] ([facility]) [address] [place] [address] [place], [address], 01/12/2024 14:36:35 01/12/20 24 01/12/2024 CBC W/ AUTO DIFF monocyte # 0.51 K/uL Not Available [facility] ([facility]) [address] [place] [address] [place], [address], 01/12/2024 14:36:35 01/12/20 24 01/12/2024 CBC W/ AUTO DIFF eosinophil # 0.13 K/uL Not Available [facility] ([facility]) [address] [place] [address] [place], [address], 01/12/2024 14:36:35 01/12/20 24 01/12/2024 CBC W/ AUTO DIFF basophil # 0.03 K/uL Not Available [facility] ([facility]) [address] [place] [address] [place], [address], 01/12/2024 14:36:35 01/12/20 24 01/12/2024 CBC W/ AUTO DIFF immature gramulocytes # 0.04 K/uL Not Available [facility] ([facility]) [address] [place] [address] [place], [address], 01/12/2024 14:36:35 01/12/20 24 01/12/2024 CBC W/ AUTO DIFF nucleated red blood cells # 0.00 k/uL Not Available [facility] ([facility]) [address] [place] [address] [place], [address], 01/12/2024 14:36:35 01/12/20 24 01/12/2024 CBC W/ AUTO DIFF manual differential NO Not Available [facility] ([facility]) [address] [facility] [place], [address], 01/12/2024 14:36:35 01/12/20 24 01/12/2024 CBC W/ AUTO DIFF note Unles s other joseph noted testi ng perfo rmed at: [facility] [address] [place] [address] Isac guthrie MD Not Available [facility] ([facility]) [address] [place] [address] [place], [address], 01/12/2024 14:36:35 01/12/20 24 01/12/2024 COMP METAB OLIC PANEL sodium 144 mmol/ L 137-14 7 Not Available [facility] ([facility]) [address] [place] [address] [place], [address], 01/12/2024 15:06:19 01/12/20 24 01/12/2024 COMP METAB OLIC PANEL potassium 4.2 mmol/ L 3.5-5. 1 Not Available [facility] ([facility]Op [facility]) [address] [place] [address] [place], [address], 01/12/2024 15:06:19 01/12/20 24 01/12/2024 COMP METAB OLIC PANEL chloride 106 mmol/ L 98-110 Not Available [facility] ([facility]) [address] [place] [address] [place], [address], 01/12/2024 15:06:19 01/12/20 24 01/12/2024 COMP METAB OLIC PANEL carbon dioxide 24 mmol/ L 21-30 Not Available [facility] ([facility]) [address] [place] [address] [place], [address], 01/12/2024 15:06:19 01/12/20 24 01/12/2024 COMP METAB OLIC PANEL anion gap 14 mmol/ L 6-14 Not Available [facility] ([facility]) [address] [place] [address] [place], [address], 01/12/2024 15:06:19 01/12/20 24 01/12/2024 COMP METAB OLIC PANEL glucose 97 mg/dL 70-115 Not Available [facility] ([facility]) [address] [place] [address] [place], [address], 01/12/2024 15:06:19 01/12/20 24 01/12/2024 COMP METAB OLIC PANEL BUN 20 mg/dL 9-20 Not Available [facility] ([facility]) [address] [place] [address] [place], [address], 01/12/2024 15:06:19 01/12/20 24 01/12/2024 COMP METAB OLIC PANEL creatinine 1.1 mg/dL 0.5-1. 5 Not Available [facility] ([facility]) [address] [place] [address] [place], [address], 01/12/2024 15:06:19 01/12/20 24 01/12/2024 COMP METAB OLIC PANEL BUN/creatini ne ratio 18 ratio 10-20 Not Available [facility] ([facility]) [address] [place] [address] [place], [address], 01/12/2024 15:06:19 01/12/2001/12/2024 COMP METAB OLIC PANEL glom filtration rate [...] chester ing kiney funct ion. Not Available [facility] ([facility]) [address] [place] [address] [place], [address], 01/12/2024 15:06:19 01/12/20 24 01/12/2024 COMP METAB OLIC PANEL osmolality (calculated) 302 mosmo l/kg 275-30 1 high OSMOL ALITY IS A CALCU LATIO N UTILI ZING THE SERUM /PLAS MA SODIU M, GLUCO SE AND UREA NITRO GEN (BUN) LEVEL S. FOR THE MOST ACCUR ATE RESUL T A MEASU RED SERUM OSMOL ALITY IS SUGGE STED. Not Available [facility] ([facility]) [address] [facility] [place], [address], 01/12/2024 15:06:19 01/12/20 24 01/12/2024 COMP METAB OLIC PANEL total protein 7.0 g/dL 6.2-8. 2 Not Available [facility] ([facility]) [address] [place] [address] [place], [address], 01/12/2024 15:06:19 01/12/20 24 01/12/2024 COMP METAB OLIC PANEL albumin 4.6 g/dL 3.5-5. 0 Not Available [facility] ([facility]) [address] [place] [address] [place], [address], 01/12/2024 15:06:19 01/12/20 24 01/12/2024 COMP METAB OLIC PANEL calcium 9.0 mg/dL 8.5-10 .8 Not Available [facility] ([facility]) [address] [place] [address] [place], [address], 01/12/2024 15:06:19 01/12/20 24 01/12/2024 COMP METAB OLIC PANEL bilirubin total 1.3 mg/dL 0.2-1. 3 Not Available [facility] ([facility]) [address] [place] [address] [place], [address], 01/12/2024 15:06:19 01/12/20 24 01/12/2024 COMP METAB OLIC PANEL AST (SGOT) 41 IU/L 17-59 Not Available [facility] ([facility]) [address] [place] [address] [place], [address], 01/12/2024 15:06:19 01/12/20 24 01/12/2024 COMP METAB OLIC PANEL ALT (SGPT) 78 IU/L 0-50 high Pleas e note new refer ence [place] for ALT. Due to a recen t manuf actur er metho dolog y chester e, the refer ence [place] for ALT is lower effec tive August 03, 2020. Not Available [facility] ([facility]) [address] [place] [address] [place], [address], 01/12/2024 15:06:19 01/12/20 24 01/12/2024 COMP METAB OLIC PANEL alk phosphatase 64 IU/L 38-126 Not Available [facility] ([facility]Op [facility]) [address] [place] [address] [place], [address], 01/12/2024 15:06:19 01/12/20 24 01/12/2024 COMP METAB OLIC PANEL note Unles s other joseph noted testi ng perfo rmed at: [facility] [address] [place] [address] Isac guthrie MD Not Available [facility] ([facility]) [address] [place] [address] [place], [address], 01/12/2024 15:06:19 01/12/20 24 01/12/2024 IRON STUDY W FE/TI BC/UI BC/%S AT iron 124 ug/dL 49-181 Not Available [facility] ([facility]) [address] [place] [address] [place], [address], 01/12/2024 15:12:02 01/12/20 24 01/12/2024 IRON STUDY W FE/TI BC/UI BC/%S AT total iron bind cap. 416 ug/dL 261-46 2 Not Available [facility] (Pre-Op [facility]) [address] [place] [address] [place], [address], 01/12/2024 15:12:02 01/12/20 24 01/12/2024 IRON STUDY W FE/TI BC/UI BC/%S AT unsaturated iron binding cap 292 ug/dL 150-37 5 Not Available [facility] ([facility]) [address] [facility] [place], [address], 01/12/2024 15:12:02 01/12/20 24 01/12/2024 IRON STUDY W FE/TI BC/UI BC/%S AT % saturation 30 % 15-55 Not Available [facility] ([facility]) [address] [place] [address] [place], [address], 01/12/2024 15:12:02 01/12/20 24 01/12/2024 IRON STUDY W FE/TI BC/UI BC/%S AT note Unles s other joseph noted testi ng perfo rmed at: [facility] [address] [place] [address] Isac guthrie MD Not Available [facility] ([facility]) [address] [place] [address] [place], [address], 01/12/2024 15:12:02 01/12/20 24 01/12/2024 KONSTANTIN TIN ferritin 118 NG/mL 5-244 Not Available [facility] ([facility]) [address] [place] [address] [place], [address], 01/12/2024 15:39:15 01/12/20 24 01/12/2024 KONSTANTIN TIN note Unles s other joseph noted testi ng perfo rmed at: [facility] [address] [place] [address] Isac guthrie MD Not Available [facility] ([facility]) [address] [place] [address] [place], [address], 01/12/2024 15:39:15 03/30/20 24 03/31/2024 CBC, PLATE LET, NO DIFFE RENTI AL WBC 6.2 x10e3 /uL 3.4-10 .8 normal Not Available [facility] [address] [facility], [place], [address], 04/03/2024 16:10:08 03/30/20 24 03/31/2024 CBC, PLATE LET, NO DIFFE RENTI AL RBC 4.86 x10e6 /uL 4.14-5 .80 normal Not Available [facility] [address] [facility], [place], [address], 04/03/2024 16:10:08 03/30/20 24 03/31/2024 CBC, PLATE LET, NO DIFFE RENTI AL hemoglobin 15.1 g/dL 13.0-1 7.7 normal Not Available [facility] [address] [place], [address], 04/03/2024 16:10:08 03/30/20 24 03/31/2024 CBC, PLATE LET, NO DIFFE RENTI AL hematocrit 45.4 % 37.5-5 1.0 normal Not Available [facility] [address] [facility], [place], [address], 04/03/2024 16:10:08 03/30/20 24 03/31/2024 CBC, PLATE LET, NO DIFFE RENTI AL MCV 93 fL 79-97 normal Not Available [facility] [address] [place], [address], 04/03/2024 16:10:08 03/30/20 24 03/31/2024 CBC, PLATE LET, NO DIFFE RENTI AL MCH 31.1 pg 26.6-3 3.0 normal Not Available [facility] [address] [facility], [place], [address], 04/03/2024 16:10:08 03/30/20 24 03/31/2024 CBC, PLATE LET, NO DIFFE RENTI AL MCHC 33.3 g/dL 31.5-3 5.7 normal Not Available [facility] [address] [facility], [place], [address], 04/03/2024 16:10:08 03/30/20 24 03/31/2024 CBC, PLATE LET, NO DIFFE RENTI AL RDW 12.2 % 11.6-1 5.4 Not Available [facility] [address] [facility], [place], [address], 04/03/2024 16:10:08 03/30/20 24 03/31/2024 CBC, PLATE LET, NO DIFFE RENTI AL platelets 291 x10e3 /uL 150-45 0 normal Not Available [facility] [address] [facility], [place], [address], 04/03/2024 16:10:08 03/30/20 24 03/31/2024 CBC, PLATE LET, NO DIFFE RENTI AL NRBC DIAMOND CLEANER Not Available [facility] [address] [facility], [place], [address], 04/03/2024 16:10:08 03/30/20 24 03/31/2024 HEPAT IC FUNCT ION PANEL (7) protein, total 6.8 g/dL 6.0-8. 5 normal Not Available [facility] [address] [facility], [place], [address], 04/03/2024 16:10:09 03/30/20 24 03/31/2024 HEPAT IC FUNCT ION PANEL (7) albumin 4.8 g/dL 4.1-5. 1 normal Not Available [facility] [address] [place], [address], 04/03/2024 16:10:09 03/30/20 24 03/31/2024 HEPAT IC FUNCT ION PANEL (7) bilirubin, total 1.2 mg/dL 0.0-1. 2 normal Not Available [facility] [address] [facility] [place] [place], [address], 04/03/2024 16:10:09 03/30/20 24 03/31/2024 HEPAT IC FUNCT ION PANEL (7) bilirubin, direct 0.28 mg/dL 0.00-0 .40 normal Not Available [facility] [address] [facility] [place] [place], [address], 04/03/2024 16:10:09 03/30/20 24 03/31/2024 HEPAT IC FUNCT ION PANEL (7) alkaline phosphatase 89 IU/L 44-121 normal Not Available [facility] [address] [facility], [place], [address], 04/03/2024 16:10:09 03/30/20 24 03/31/2024 HEPAT IC FUNCT ION PANEL (7) AST (SGOT) 35 IU/L 0-40 normal Not Available [facility] [address] [facility], [place], [address], 04/03/2024 16:10:09 03/30/20 24 03/31/2024 HEPAT IC FUNCT ION PANEL (7) ALT (SGPT) 76 IU/L 0-44 above high normal Not Available [facility] [address] [facility], [place], [address], 04/03/2024 16:10:09 03/30/20 24 03/31/2024 PROTH ROMBI [...] range 2.5 - 3.5 Not Available [facility] [address] [facility] [place] [place], [address], 04/03/2024 16:10:10 03/30/20 24 03/31/2024 PROTH ROMBI N TIME (PT), SERIA L prothrombin time 11.6 sec 9.1-12 .0 normal Not Available [facility] [address] [facility] [place] [place], [address], 04/03/2024 16:10:10 03/30/20 24 03/31/2024 PROTH ROMBI N TIME (PT), SERIA L pdf . Not Available [facility] [address] [facility], [place], [address], 04/03/2024 16:10:10 03/30/20 24 04/03/2024 ENHAN BAILEE LIVER FIBRO SIS (ELF) elf(tm) score 10.04 <9.80 above high normal ELF(T M) Score Inter preta tion: Risk cut-o ffs to asses s the likel ihood of progr essio n to cirrh osis and liver -rela margarita clini jian event s withi n 3.9 years follo [facility] ine ELF score (IQR: 14.0- 22.4 month s)*: Lower risk < 9.80 Mid risk 9.80 - 11.29 Highe r risk >11.2 9 Note: The ELF(T M) Score is a unitl ess numer ical value . *Enrique bhandari SA, Hudson VW, Robert gilmore T, et al. James serti b for patie nts with bridg ing fibro sis or compe nsate d cirrh osis due to VILLARREAL: Resul ts from rando mized phase III OUMAR AR trial s. J Hepat ol. 2019;7 3(1): 26-39 . Not Available [facility] [address] [facility], [place], [address], 04/03/2024 16:10:11 03/30/20 24 03/31/2024 KONSTANTIN TIN ferritin 278 NG/mL 30-400 normal Not Available [facility] [address] [facility], [place], [address], 04/03/2024 16:10:12 05/17/19 25 05/17/2024 CBC W/ AUTO DIFF WBC 5.93 K/uL 4.5-11 .5 Not Available [facility] [address] [facility] [place], [address], 05/17/2024 17:34:27 05/17/19 25 05/17/2024 CBC W/ AUTO DIFF RBC 4.37 M/uL 4.0-5. 4 Not Available [facility] ([facility]) [address] [place] [address] [place], [address], 05/17/2024 17:34:27 05/17/19 25 05/17/2024 CBC W/ AUTO DIFF HGB 13.9 g/dL 14.0-1 8.0 low Not Available [facility] ([facility]) [address] [place] [address] [place], [address], 05/17/2024 17:34:27 05/17/19 25 05/17/2024 CBC W/ AUTO DIFF HCT 40.5 % 40-54 Not Available [facility] ([facility]) [address] [place] [address] [place], [address], 05/17/2024 17:34:27 05/17/19 25 05/17/2024 CBC W/ AUTO DIFF MCV 92.7 fL 80.0-1 00.0 Not Available [facility] ([facility]) [address] [place] [address] [place], [address], 05/17/2024 17:34:27 05/17/19 25 05/17/2024 CBC W/ AUTO DIFF MCH 31.8 pg 26.0-3 2.0 Not Available [facility]) [address] [place] [address] [place], [address], 05/17/2024 17:34:27 05/17/19 25 05/17/2024 CBC W/ AUTO DIFF MCHC 34.3 g/dL 32.0-3 6.0 Not Available [facility] ([facility]) [address] [place] [address] [place], [address], 05/17/2024 17:34:27 05/17/19 25 05/17/2024 CBC W/ AUTO DIFF RDW 13.3 % 11.5-1 4.5 Not Available [facility]) [address] [place] [address] [place], [address], 05/17/2024 17:34:27 05/17/19 25 05/17/2024 CBC W/ AUTO DIFF platelet count 301 K/uL 142-42 4 Not Available [facility]) [address] [place] [address] [place], [address], 05/17/2024 17:34:27 05/17/19 25 05/17/2024 CBC W/ AUTO DIFF MPV 9.8 fL 6.8-10 .2 Not Available [facility]) [address] [place] [address] [place], [address], 05/17/2024 17:34:27 05/17/19 25 05/17/2024 CBC W/ AUTO DIFF neutrophil % 64.9 % 50-70 Not Available [facility]) [address] [place] [address] [place], [address], 05/17/2024 17:34:27 05/17/19 25 05/17/2024 CBC W/ AUTO DIFF lymphocyte % 25.3 % 18.0-4 2.0 Not Available [facility]) [address] [place] [address] [place], [address], 05/17/2024 17:34:27 05/17/19 25 05/17/2024 CBC W/ AUTO DIFF monocyte % 7.1 % 2.0-11 .0 Not Available [facility]) [address] [place] [address] [place], [address], 05/17/2024 17:34:27 05/17/19 25 05/17/2024 CBC W/ AUTO DIFF eosinophil % 1.9 % 1.0-3. 0 Not Available [facility]) [address] [place] [address] [place], [address], 05/17/2024 17:34:27 05/17/19 25 05/17/2024 CBC W/ AUTO DIFF basophil % 0.5 % 0.0-2. 0 Not Available [facility]) [address] [place] [address] [place], [address], 05/17/2024 17:34:27 05/17/19 25 05/17/2024 CBC W/ AUTO DIFF immature granulocytes % 0.3 % 0.0-0. 8 Not Available [facility] ([facility]) [address] [place] [address] [place], [address], 05/17/2024 17:34:27 05/17/19 25 05/17/2024 CBC W/ AUTO DIFF nucleated red blood cells % 0.0 % Not Available [facility]) [address] [place] [address] [place], [address], 05/17/2024 17:34:27 05/17/19 25 05/17/2024 CBC W/ AUTO DIFF neutrophil # 3.85 K/uL Not Available [facility]) [address] [place] [address] [place], [address], 05/17/2024 17:34:27 05/17/19 25 05/17/2024 CBC W/ AUTO DIFF lymphocyte # 1.50 K/uL Not Available [facility]) [address] [place] [address] [place], [address], 05/17/2024 17:34:27 05/17/19 25 05/17/2024 CBC W/ AUTO DIFF monocyte # 0.42 K/uL Not Available [facility]) [address] [place] [address] [place], [address], 05/17/2024 17:34:27 05/17/19 25 05/17/2024 CBC W/ AUTO DIFF eosinophil # 0.11 K/uL Not Available [facility]) [address] [place] [address] [place], [address], 05/17/2024 17:34:27 05/17/19 25 05/17/2024 CBC W/ AUTO DIFF basophil # 0.03 K/uL Not Available [facility]) [address] [place] [address] [place], [address], 05/17/2024 17:34:27 05/17/19 25 05/17/2024 CBC W/ AUTO DIFF immature gramulocytes # 0.02 K/uL Not Available [facility] ([facility]) [address] [place] [address] [place], [address], 05/17/2024 17:34:27 05/17/19 25 05/17/2024 CBC W/ AUTO DIFF nucleated red blood cells # 0.00 k/uL Not Available [facility] ([facility]) [address] [place] [address] [place], [address], 05/17/2024 17:34:27 05/17/19 25 05/17/2024 CBC W/ AUTO DIFF manual differential NO Not Available [facility] ([facility]) [address] [place] [address] [place] [address], 05/17/2024 17:34:27 05/17/19 25 05/17/2024 CBC W/ AUTO DIFF note Unles s other joseph noted testi ng perfo rmed at: [facility] [address] [place] [address] Isac guthrie MD Not Available [facility] ([facility]) [address] [place] [address] [place], [address], 05/17/2024 17:34:27 05/17/19 25 05/17/2024 COMP METAB OLIC PANEL sodium 139 mmol/ L 137-14 7 Not Available [facility] ([facility]) [address] [place] [address] [place], [address], 05/17/2024 18:54:31 05/17/19 25 05/17/2024 COMP METAB OLIC PANEL potassium 3.8 mmol/ L 3.5-5. 1 Not Available [facility] ([facility]) [address] [place] [address] [place], [address], 05/17/2024 18:54:31 05/17/19 25 05/17/2024 COMP METAB OLIC PANEL chloride 104 mmol/ L 98-110 Not Available [facility] ([facility]) [address] [place] [address] [place], [address], 05/17/2024 18:54:31 05/17/19 25 05/17/2024 COMP METAB OLIC PANEL carbon dioxide 23 mmol/ L 21-30 Not Available [facility] ([facility]) [address] [place] [address] [place], [address], 05/17/2024 18:54:31 05/17/19 25 05/17/2024 COMP METAB OLIC PANEL anion gap 12 mmol/ L 6-14 Not Available [facility] ([facility]) [address] [place] [address] [place], [address], 05/17/2024 18:54:31 05/17/19 25 05/17/2024 COMP METAB OLIC PANEL glucose 76 mg/dL 70-115 Not Available [facility] ([facility]) [address] [place] [address] [place], [address], 05/17/2024 18:54:31 05/17/19 25 05/17/2024 COMP METAB OLIC PANEL BUN 24 mg/dL 9-20 high Not Available [facility]) [address] [place] [address] [place], [address], 05/17/2024 18:54:31 05/17/19 25 05/17/2024 COMP METAB OLIC PANEL creatinine 1.2 mg/dL 0.5-1. 5 Not Available [facility] ([facility]) [address] [place] [address] [place], [address], 05/17/2024 18:54:31 05/17/19 25 05/17/2024 COMP METAB OLIC PANEL BUN/creatini ne ratio 20 10-20 Not Available [facility] ([facility]) [address] [place] [address] [place], [address], 05/17/2024 18:54:31 05/17/19 25 05/17/2024 COMP METAB [...] chester ing kiney funct ion. Not Available [facility] ([facility]) [address] [place] [address] [place], [address], 05/17/2024 18:54:31 05/17/19 25 05/17/2024 COMP METAB OLIC PANEL osmolality (calculated) 292 mosmo l/kg 275-30 1 OSMOL ALITY IS A CALCU LATIO N UTILI ZING THE SERUM /PLAS MA SODIU M, GLUCO SE AND UREA NITRO GEN (BUN) LEVEL S. FOR THE MOST ACCUR ATE RESUL T A MEASU RED SERUM OSMOL ALITY IS SUGGE STED. Not Available [facility] ([facility]) [address] [place] [address] [place], [address], 05/17/2024 18:54:31 05/17/19 25 05/17/2024 COMP METAB OLIC PANEL total protein 7.3 g/dL 6.2-8. 2 Not Available [facility] ([facility]) [address] [place] [address] [place], [address], 05/17/2024 18:54:31 05/17/19 25 05/17/2024 COMP METAB OLIC PANEL albumin 4.7 g/dL 3.5-5. 0 Not Available [facility] ([facility]) [address] [place] [address] [place], [address], 05/17/2024 18:54:31 05/17/19 25 05/17/2024 COMP METAB OLIC PANEL calcium 9.1 mg/dL 8.5-10 .8 Not Available [facility] ([facility]) [address] [place] [address] [place], [address], 05/17/2024 18:54:31 05/17/19 25 05/17/2024 COMP METAB OLIC PANEL bilirubin total 1.4 mg/dL 0.2-1. 3 high Not Available [facility] ([facility]) [address] [place] [address] [place], [address], 05/17/2024 18:54:31 05/17/19 25 05/17/2024 COMP METAB OLIC PANEL AST (SGOT) 45 IU/L 17-59 Not Available [facility] ([facility]) [address] [place] [address] [place], [address], 05/17/2024 18:54:31 05/17/19 25 05/17/2024 COMP METAB OLIC PANEL ALT (SGPT) 111 IU/L 0-50 high Pleas e note new refer ence [place] for ALT. Due to a recen t manuf actur er metho dolog y chester e, the refer ence [place] for ALT is lower effec tive August 03, 2020. Not Available [facility] ([facility]) [address] [place] [address] [place], [address], 05/17/2024 18:54:31 05/17/19 25 05/17/2024 COMP METAB OLIC PANEL alk phosphatase 73 IU/L 38-126 Not Available [facility] ([facility]) [address] [facility] [place], [address], 05/17/2024 18:54:31 05/17/19 25 05/17/2024 COMP METAB OLIC PANEL note Unles s other joseph noted testi ng perfo rmed at: [facility] [address] [place] [address] Isac guthrie MD Not Available [facility] ([facility]) [address] [place] [address] [place], [address], 05/17/2024 18:54:31 05/17/19 25 05/17/2024 IRON STUDY W FE/TI BC/UI BC/%S AT iron 156 ug/dL 49-181 Not Available [facility] ([facility]) [address] [place] [address] [place], [address], 05/17/2024 19:12:42 05/17/19 25 05/17/2024 IRON STUDY W FE/TI BC/UI BC/%S AT total iron bind cap. 364 ug/dL 261-46 2 Not Available [facility] ([facility]) [address] [place] [address] [place], [address], 05/17/2024 19:12:42 05/17/19 25 05/17/2024 IRON STUDY W FE/TI BC/UI BC/%S AT unsaturated iron binding cap 208 ug/dL 150-37 5 Not Available [facility] ([facility]) [address] [place] [address] [place], [address], 05/17/2024 19:12:42 05/17/19 25 05/17/2024 IRON STUDY W FE/TI BC/UI BC/%S AT % saturation 43 % 15-55 Not Available [facility] ([facility]) [address] [place] [address] [place], [address], 05/17/2024 19:12:42 05/17/19 25 05/17/2024 IRON STUDY W FE/TI BC/UI BC/%S AT note Unles s other joseph noted testi ng perfo rmed at: [facility] [address] [place] [address] Isac guthrie MD Not Available [facility] ([facility]) [address] [place] [address] [place], [address], 05/17/2024 19:12:42 05/17/19 25 05/17/2024 KONSTANTIN TIN ferritin 69 NG/mL 5-244 Not Available [facility] ([facility]) [address] [place] [address] [place], [address], 05/17/2024 21:20:48 05/17/19 25 05/17/2024 KONSTANTIN TIN note Unles s other joseph noted testi ng perfo rmed at: [facility] [address] [place] [address] Isac guthrie MD Not Available [facility] ([facility]) [address] [place] [address] [place], [address], 05/17/2024 21:20:48 09/30/19 25 09/29/2024 CBC NO DIFF (HEMO GRAM) WBC 7.8 K/uL 4.0-10 .5 Not Available [facility] ([facility] [address], [place], [address], 09/29/2024 07:22:51 09/30/19 25 09/29/2024 CBC NO DIFF (HEMO GRAM) RBC 5.0 M/mm3 4.7-6. 1 Not Available [facility] ([facility]) [address], [place], [address], 09/29/2024 07:22:51 09/30/19 25 09/29/2024 CBC NO DIFF (HEMO GRAM) HGB 15.5 gm/dL 13.5-1 8.0 Not Available [facility] ([facility]) [address], [place], [address], 09/29/2024 07:22:51 09/30/19 25 09/29/2024 CBC NO DIFF (HEMO GRAM) HCT 45.4 % 42.0-5 2.0 Not Available [facility] ([facility]) [address], [place], [address], 09/29/2024 07:22:51 09/30/19 25 09/29/2024 CBC NO DIFF (HEMO GRAM) MCV 91.3 fL 78-100 Not Available [facility] ([facility]) [address], [place], [address], 09/29/2024 07:22:51 09/30/19 25 09/29/2024 CBC NO DIFF (HEMO GRAM) MCH 31.2 pg 27-31 high Not Available [facility] ([facility]) [address] [facility], [place], [address], 09/29/2024 07:22:51 09/30/19 25 09/29/2024 CBC NO DIFF (HEMO GRAM) MCHC 34.1 g/dL 32-36 Not Available [facility] ([facility]) [address] [place], [address], 09/29/2024 07:22:51 09/30/19 25 09/29/2024 CBC NO DIFF (HEMO GRAM) RDW 13.2 % 11.5-1 4.0 Not Available [facility] ([facility]) [address] [facility], [place], [address], 09/29/2024 07:22:51 09/30/19 25 09/29/2024 CBC NO DIFF (HEMO GRAM) platelet count 288 K/uL 150-45 0 Not Available [facility] ([facility]) [address] , [place], [address], 09/29/2024 07:22:51 09/30/19 25 09/29/2024 CBC NO DIFF (HEMO GRAM) MPV 9.1 fL 6-9.5 Not Available [facility] ([facility]) [address], [place], [address], 09/29/2024 07:22:51 09/30/19 25 09/29/2024 HEMOG LOBIN A1C A1C 5.0 % 3.8-5. 6 GLYCO SYLAT ED HEMOG LOBIN (A1C) EXPEC MARGARITA RANGE S: <6.5 NON-D IABET IC 6.5-7 .5 EXCEL LENT 7.5-8 .5 GOOD >8.5 POOR Not Available [facility] ([facility]) [address], [place], [address], 09/29/2024 07:39:24 09/30/19 25 09/29/2024 IRON STUDY (IRON /TIBC /%SAT ) iron 95 mcg/m L 40-180 Not Available [facility] ([facility]) [address], [place], [address], 09/29/2024 08:07:41 09/30/19 25 09/29/2024 IRON STUDY (IRON /TIBC /%SAT ) TIBC 391 mcg/d L 250-45 0 Not Available [facility] ([facility]) [address], [place], [address], 09/29/2024 08:07:41 09/30/19 25 09/29/2024 IRON STUDY (IRON /TIBC /%SAT ) %sat 24 15-55 Not Available [facility] ([facility]) [address] [place], [address], 09/29/2024 08:07:41 09/30/19 25 09/29/2024 COMP METAB OLIC PANEL sodium 141 mmol/ L 136-14 5 Not Available [facility] ([facility]) [address], [place], [address], 09/29/2024 08:16:26 09/30/19 25 09/29/2024 COMP METAB OLIC PANEL potassium 4.7 mmol/ L 3.6-5. 0 Not Available [facility] ([facility]) [address] , [place], [address], 09/29/2024 08:16:26 09/30/19 25 09/29/2024 COMP METAB OLIC PANEL chloride 105 mmol/ L 98-107 Not Available [facility] ([facility]) [address] , [place], [address], 09/29/2024 08:16:26 09/30/19 25 09/29/2024 COMP METAB OLIC PANEL carbon dioxide 26.0 mmol/ L 21.0-3 2.0 Not Available [facility] ([facility]) [address] , [place], [address], 09/29/2024 08:16:26 09/30/19 25 09/29/2024 COMP METAB OLIC PANEL anion gap 14.7 Not Available [facility] ([facility]) [address] [place], [address], 09/29/2024 08:16:26 09/30/19 25 09/29/2024 COMP METAB OLIC PANEL glucose 109 mg/dL 70-120 Not Available [facility] ([facility]) [address] [place], [address], 09/29/2024 08:16:26 09/30/19 25 09/29/2024 COMP METAB OLIC PANEL BUN 22 mg/dL 7-18 high Not Available [facility] ([facility]) [address] [place], [address], 09/29/2024 08:16:26 09/30/19 25 09/29/2024 COMP METAB OLIC PANEL creatinine 1.2 mg/dL 0.6-1. 3 Not Available [facility] ([facility]) [address], [place], [address], 09/29/2024 08:16:26 09/30/19 25 09/29/2024 COMP METAB OLIC PANEL glomerular filtration rate 74 mlper min 60- GFR LIMIT ATION : The eGFR equat [...] chester ing kiney funct ion. Not Available [facility] ([facility]) [address], [place], [address], 09/29/2024 08:16:26 09/30/19 25 09/29/2024 COMP METAB OLIC PANEL osmolality (calculated) 297 mOsm/ kg 275-30 1 OSMOL ALITY IS A CALCU LATIO N UTILI ZING THE SERUM /PLAS MA SODIU M, GLUCO SE AND UREA NITRO GEN (BUN) LEVEL S. FOR THE MOST ACCUR ATE RESUL T A MEASU RED SERUM OSMOL ALITY IS SUGGE STED. Not Available [facility] ([facility]) [address], [place], [address], 09/29/2024 08:16:26 09/30/19 25 09/29/2024 COMP METAB OLIC PANEL total protein 7.2 g/dL 6.4-8. 2 Not Available [facility] ([facility]) [address], [place], [address], 09/29/2024 08:16:26 09/30/19 25 09/29/2024 COMP METAB OLIC PANEL albumin 4.1 g/dL 3.4-5. 0 Not Available [facility] ([facility]) [address], [place], [address], 09/29/2024 08:16:26 09/30/19 25 09/29/2024 COMP METAB OLIC PANEL globulin 3.1 Not Available [facility] ([facility]) [address], [place], [address], 09/29/2024 08:16:26 09/30/19 25 09/29/2024 COMP METAB OLIC PANEL alb/glob ratio 1.3 0.7-2 Not Available [facility] ([facility]) [address], [place], [address], 09/29/2024 08:16:26 09/30/19 25 09/29/2024 COMP METAB OLIC PANEL calcium 9.2 mg/dL 8.5-10 .5 Not Available [facility] ([facility]) [address] , [place], [address], 09/29/2024 08:16:26 09/30/19 25 09/29/2024 COMP METAB OLIC PANEL bilirubin total 1.60 mg/dL 0.10-1 .00 high Not Available [facility] ([facility]) [address], [place], [address], 09/29/2024 08:16:26 09/30/19 25 09/29/2024 COMP METAB OLIC PANEL AST (SGOT) 26 U/L 0-37 Not Available [facility] ([facility]) [address] , [place], [address], 09/29/2024 08:16:26 09/30/19 25 09/29/2024 COMP METAB OLIC PANEL ALT (SGPT) 79 U/L 0-65 high Not Available [facility] ([facility]) [address] , [place], [address], 09/29/2024 08:16:26 09/30/19 25 09/29/2024 COMP METAB OLIC PANEL alk phosphatase 95 U/L 46-116 Not Available [facility] ([facility]) [address] [place], [address], 09/29/2024 08:16:26 09/30/19 25 09/29/2024 LIPID PANEL triglyceride 274 mg/dL 30-200 high Not Available [facility] ([facility]) [address] [place], [address], 09/29/2024 08:17:30 09/30/19 25 09/29/2024 LIPID PANEL cholesterol 275 mg/dL 0-200 high Not Available [facility] ([facility]) [address] [place], [address], 09/29/2024 08:17:30 09/30/19 25 09/29/2024 LIPID PANEL HDL 56 mg/dL 40-104 Not Available [facility] ([facility]) [address] [place], [address], 09/29/2024 08:17:30 09/30/19 25 09/29/2024 LIPID PANEL LDL calculated 164 mg/dL 0-130 high Not Available [facility] ([facility]) [address] [place], [address], 09/29/2024 08:17:30 09/30/19 25 09/29/2024 KONSTANTIN TIN ferritin, serum 254 NG/mL 3-244 high Not Available [facility] ([facility]) [address] [place], [address], 09/29/2024 08:17:32 09/30/19 25 10/02/2024 VILLARREAL FIBRO SURE PLUS alpha 2-macroglobu oh, qn 121 mg/dL 110-27 6 Not Available [facility] ([facility]) [address] [place], [address], 10/02/2024 06:11:04 09/30/19 25 10/02/2024 VILLARREAL FIBRO SURE PLUS haptoglobin 82 mg/dL 23-355 Not Available [facility] [address] [place], [address], 10/02/2024 06:11:04 09/30/19 25 10/02/2024 VILLARREAL FIBRO SURE PLUS apolipoprote in A-1 176 mg/dL 101-17 8 Not Available [facility] ([facility]) [address] [place], [address], 10/02/2024 06:11:04 09/30/19 25 10/02/2024 VILALRREAL FIBRO SURE PLUS bilirubin, total 0.9 mg/dL 0.0-1. 2 Not Available [facility] ([facility]) [address] [place], [address], 10/02/2024 06:11:04 09/30/19 25 10/02/2024 VILLARREAL FIBRO SURE PLUS GGT 84 IU/L 0-65 high Not Available [facility] ([facility]) [address] [place], [address], 10/02/2024 06:11:04 09/30/19 25 10/02/2024 VILLARREAL FIBRO SURE PLUS ALT (SGPT) p5p 72 IU/L 0-55 high Not Available [facility] [address] [place], [address], 10/02/2024 06:11:04 09/30/19 25 10/02/2024 VILLARREAL FIBRO SURE PLUS AST (SGOT) p5p 36 IU/L 0-40 Not Available [facility] [address] [place], [address], 10/02/2024 06:11:04 09/30/19 25 10/02/2024 VILLARREAL FIBRO SURE PLUS cholesterol, total 289 mg/dL 100-19 9 high Not Available [facility] ([facility]) [address] [place], [address], 10/02/2024 06:11:04 09/30/19 25 10/02/2024 VILLARREAL FIBRO SURE PLUS glucose, serum 102 mg/dL 70-99 high Not Available [facility] [address] [place], [address], 10/02/2024 06:11:04 09/30/19 25 10/02/2024 VILLARREAL FIBRO SURE PLUS triglyceride s 307 mg/dL 0-149 high Not Available [facility] [address] , [place], [address], 10/02/2024 06:11:04 09/30/19 25 10/02/2024 VILLARREAL FIBRO SURE PLUS fibrosis scoring: Commen t . <=0.2 1 = Stage F0 - No fibro sis 0.21 - 0.27 = Stage F0 - F1 0.27 - 0.31 = Stage F1 - Maisha l fibro sis 0.31 - 0.48 = Stage F1 - F2 0.48 - 0.58 = Stage F2 - Bridg ing fibro sis with few septa 0.58 - 0.72 = Stage F3 - Bridg ing fibro sis with many septa 0.72 - 0.74 = Stage F3 - F4 >0.74 = Stage F4 - Cirrh osis Not Available [facility] ([facility]) [address] [place], [address], 10/02/2024 06:11:04 09/30/19 25 10/02/2024 VILLARREAL FIBRO SURE PLUS fibrosis stage Commen t F0 - No fibro sis Not Available [facility] ([facility]) [address] [place], [address], 10/02/2024 06:11:04 09/30/19 25 10/02/2024 VILLARREAL FIBRO SURE PLUS fibrosis score 0.20 0.00-0 .21 Not Available [facility] ([facility]) [address] [place], [address], 10/02/2024 06:11:04 09/30/19 25 10/02/2024 VILLARREAL FIBRO SURE PLUS steatosis score 0.77 0.00-0 .40 high Not Available [facility] ([facility]) [address] , [place], [address], 10/02/2024 06:11:04 09/30/19 25 10/02/2024 VILLARREAL FIBRO SURE PLUS steatosis grade Commen t S2 - S3 Moder ate to Sever e Steat osis (Clin icall y Signi fican t) (34- 100%) Not Available [facility] ([facility]) [address] , [place], [address], 10/02/2024 06:11:04 09/30/19 25 10/02/2024 VILLARREAL FIBRO SURE PLUS steatosis scoring Commen t . <=0.4 0 = S0 - No Steat osis (<5%) 0.40 - 0.55 = S1 - Mild Steat osis (but Clini nader Signi fican t) (5-33 %) >0.55 = S2S3- Moder ate to Sever e Steat osis (Clin icall y Signi fican t) (34-1 00%) Not Available [facility] ([facility]) [address] , [place], [address], 10/02/2024 06:11:04 09/30/19 25 10/02/2024 VILLARREAL FIBRO SURE PLUS villarreal scoring Commen t . <=0.2 5 = N0 - No VILLARREAL/ MASH 0.25 - 0.50 = N1 - Mild VILLARREAL/ MASH 0.50 - 0.75 = N2 - Moder ate VILLARREAL/ MASH >0.75 = N3 - Sever e VILLARREAL/ MASH Not Available [facility] ([facility]) [address] [place], [address], 10/02/2024 06:11:04 09/30/19 25 10/02/2024 VILLARREAL FIBRO SURE PLUS villarreal grade Commen t N2 - Moder ate VILLARREAL Not Available [facility] ([facility]) [address], [place], [address], 10/02/2024 06:11:04 09/30/19 25 10/02/2024 VILLARREAL FIBRO SURE PLUS villarreal score 0.68 0.00-0 .25 high Not Available [facility] ([facility]) [address], [place], [address], 10/02/2024 06:11:04 09/30/19 25 10/02/2024 VILLARREAL FIBRO SURE PLUS limitations Commen t . VILLARREAL Fibro Sure( R) Plus is recom berny d for patie nts with suspe cted non-a lcoho lic fatty liver disea se, now known as Metab olic Dysfu nctio n-Ass ociat ed Steat otic Liver Disea se or MASLD . It is not recom berny d for patie nts with other liver disea ses. It is also not recom berny d in patie nts with Gilbe rt Disea se, acute hemol ysis, acute viral hepat itis, drug induc ed hepat itis, brennen ic liver disea se, autoi mmune hepat itis and/o r extra -hepa tic janki stasi s. Any of these clini jian situa tions may lead to inacc urate quant itati ve predi ction s of fibro sis. Not Available [facility] ([facility]) [address], [place], [address], 10/02/2024 06:11:04 09/30/19 25 10/02/2024 VILLARREAL FIBRO SURE PLUS methodology: Commen t . The kaylin alex teste d are perfo rmed by Fibro Sure- Speci fic metho ds. Not inten ded for use with other diagn ostic consi derat ions. Not Available [facility] ([facility]) [address], [place], [address], 10/02/2024 06:11:04 09/30/19 25 10/02/2024 VILLARREAL FIBRO SURE PLUS interpretati on: Commjoanne t . Quant itati ve resul ts of 10 bioch emica ls in combi natio n with age and gende r, are kaylin zed using a compu tatio nal algor ithm to provi de a quant itati ve surro gate marke r (0.0- 1.0) of liver fibro sis ([place] vir F0-F4 ), hepat ic steat osis (0.0- 1.0, S0-S3 ), and Non-A lcoho lic Steat o-Hep atiti s (VILLARREAL ) (0.0- 1.0, N0-N3 ), now known as Metab olic Dysfu nctio n-Ass ociat ed Steat ohepa titis (MASH ). The absen ce of steat osis (S<0. 40) precl udes the diagn osis of VILLARREAL/ MASH. Fibro sis marke r: In a study of 171 Non- Alcoh olic Fatty Liver Disea se (NAFL D), now known as Metab olic Dysfu nctio n-Ass ociat ed Steat otic Liver Disea se (MASL D), patie nts where 23% had signi fican t NAFLD /MASL D fibro sis ([place] vir F2-F4 ) and 11% had cirrh osis by liver biops y, a fibro sis resul t of >0.3 yield ed a sensi tivit y of 83% and a speci ficit y of 78% for the detec tion of signi fican t fibro sis. 1 Steat osis marke r: In a popul ation of 2997 patie nts, where 61% had signi fican t steat osis (>=5% ) on a liver biops y, a steat osis score >0.4 had a sensi tivit y of 79% and a speci ficit y of 50% for ident ifica tion of signi fican t steat osis. 2 VILLARREAL/ MASH marke r: In a popul ation of 1081 NAFLD /MASL D patie nts, where 51% had at least some VILLARREAL/ MASH by liver biops y, a predi ction of VILLARREAL/ MASH had a sensi tivit y of 72% for ident ifyin g VILLARREAL/ MASH and a speci ficit y of 71%. 3 Not Available [facility] ([facility]) [address], [place], [address], 10/02/2024 06:11:04 09/30/19 25 10/02/2024 VILLARREAL FIBRO SURE PLUS comment: Elizabeth t . This test was devel oped and its perfo rmanc e salas cteri stics deter mined by [facility]. It has not been clear ed or appro pancho by the Food and Drug Admin istra tion. . For quest ions regar ding this repor t pleas e conta ct custo maggie servi ce at [phone]. . Refer ences : . 1. Khushboo u V. et al. Diagn ostic Value of Bioch emica l Marke rs (Fibr oTest ) for the predi ction of Liver Fibro sis in patie nts with Non-A lcoho lic Fatty Liver Disea se. [facility] Gastr oente rolog y 2006 ; 6:6. 2. Juany De La Cruz. et al. The Diagn ostic Perfo rmanc e of a Simpl i fied Blood Test (Stea toTes t-2) for the Predi ction of Liver Steat o sis. Eur J Gastr oente rol Hepat ol. 2019; 31:39 3-402 . 3. Juany De La Cruz. et al. Diagn ostic perfo rmanc e of a new nonin v asive test for nonal cohol ic steat ohepa titis using a simpl ified his tolog ical refer ence. Eur J Gastr oente rol Hepat ol. 2017; 30:56 9-577 . Perfo rmed at: [facility] Lab[facility] mackey [facility] [place] [address] [address] Lab Direc tor: Emperatriz geller MD, Phone : [phone] Not Available [facility] ([facility]) [address], [place], [address], 10/02/2024 06:11:04 10/01/19 25 09/30/2024 PT (PROT HROMB IN TIME) W INR prothrombin time 10.8 secon ds 9.3-11 .4 Not Available [facility] ([facility] [address], [place], [address], 09/30/2024 08:29:13 10/01/19 25 09/30/2024 PT (PROT HROMB IN TIME) W INR INR 1.0 ratio 0.97-1 .05 INR is inten ded to be used ONLY for patie nts on stabl e oral antic oagul ant thera py. Thera peuti c Range s: 2.0-3 .0 Usual Thera peuti c Range 2.5-3 .5 For patie nts with histo ry of Multi ple Deep Vein Throm bus or Mecha nical Heart Valve s Not Available [facility] ([facility]) [address], [place], [address], 09/30/2024 08:29:13 Result Notes None recorded. Problems Name Problem SNOMED Code Status Onset Date Resolution Date Notes Provider Name and Address Organization Details Recorded Time Metabolic dysfunction-a ssociated steatotic liver disease Active 2024 Andres Valdez PA-C [address] [facility], [place], [address] , [place] - [place] - [place] & [place] 5 15:14:20 Anxiety disorder 092939325 Active Aruna Muhammad null, [place] & [place] 2 13:44:20 Serum amylase (pancreatic) outside reference range 970309962 Active Aruna Muhammad null, [place] & [place] 2 13:44:20 Administrativ e reason for encounter 289503048 Active Aruna Muhammad null, [place] 2 13:44:20 Liver enzymes level above reference range 024687952 Active 2021 Andres Valdez PA-C [address], [place], [address] , [place] & [place] 2 15:21:51 Steatotic liver disease 472183083 Active 2021 Andres Valdez PA-C [address], [place], [address] , [place] 2 15:22:08 Fatigue 20806222 Active 2021 Andres Valdez PA-C [address], [place], [address] , [place] 2 15:22:15 Serum ferritin above reference range 375744031 Active 2021 Andres Valdez PA-C [address], [place], [address] , [place] & [place] 2 15:22:31 Metabolic dysfunction-a ssociated steatohepatit is 094294580 Active 2021 Andres Valdez PA-C [address] , [place], [address] , [place] 2 15:24:35 International normalized ratio above reference range 527152620 Active 2022 Andres Valdez PA-C [address] [facility], [place], [address] , [place] & [place] 3 10:16:05 Problem Notes None recorded. Procedures Surgical History Date Name Laterality Status Provider Name and Address Organization Details Recorded Time 09/29/19 25 Venipuncture Gastro completed Andres Valdez PA-C [address] , [place], [address], [place] 09/28/2024 14:59:39 05/17/19 25 Venipuncture completed Sofiya Bolden [place] - [place] & [place] 05/17/2024 13:50:17 03/30/20 24 Venipuncture Gastro completed Zenaida Arenas [place] & [place] 03/30/2024 16:27:08 01/12/20 24 Venipuncture completed Shahnaz Bass [place] 01/12/2024 13:48:58 10/09/19 24 Venipuncture completed Glendy Glynn [facility] & [place] 10/09/2023 15:44:01 04/04/20 23 hernia repair [facility] [place] 10/09/2023 15:25:31 04/14/19 04 vasectomy completed [facility] Kattara [facility] & [place] 10/09/2023 15:26:21 04/14/19 00 operation on varicocele completed [facility] & [place] 10/09/2023 15:26:06 Imaging Results None recorded. Procedure [...] Not Available No t Available amoxicillin 875 mg-jersonmae julio clavulanate 125 mg tablet TAKE ONE TABLET [...] Updated DateTime 5 180.34 cm 31.9 kg/m2 910025. 65 g 96.9 [degF] 94 % 94 % 75 /min 140/85 mm[Hg] Sofiya Yuan [facility] & [place] 5 13:24:49 Date Recorded Body height Body mass index (BMI) Body weight Body temperature Oxygen saturation Oxygen saturation in Arterial blood by Pulse oximetry Heart rate Systolic And Diastolic Provider Name and Address Organization Details Last Updated DateTime 5 180.34 cm 31.6 kg/m2 468107. 11 g 98.1 [degF] 99 % 99 % 86 /min 143/90 mm[Hg] Pennie Vail [facility] & [place] 5 14:36:17 Date Recorded Body height Body mass index (BMI) Body weight Body temperature Oxygen saturation Oxygen saturation in Arterial blood by Pulse oximetry Heart rate Systolic And Diastolic Provider Name and Address Organization Details Last Updated DateTime 4 180.34 cm 29.6 kg/m2 82194.3 8 g 97.4 [degF] 96 % 96 % 67 /min 129/86 mm[Hg] Glendy Maki [facility] & [place] 4 15:20:22 Date Recorded Body height Body mass index (BMI) Body weight Body temperature Oxygen saturation Oxygen saturation in Arterial blood by Pulse oximetry Heart rate Systolic And Diastolic Provider Name and Address Organization Details Last Updated DateTime 4 180.34 cm 31.4 kg/m2 588078 g 96.8 [degF] 96 % 96 % 72 /min 138/83 mm[Hg] Shahnaz Bass [facility] & [place] 4 13:26:37 Date Recorded Body height Body mass index (BMI) Body weight Body temperature Oxygen saturation Oxygen saturation in Arterial blood by Pulse oximetry Heart rate Systolic And Diastolic Provider Name and Address Organization Details Last Updated DateTime 4 180.34 cm 32.4 kg/m2 004954. 87 g 97.9 [degF] 94 % 94 % 79 /min 152/99 mm[Hg] Zenaida Arenas [facility] & [place] 4 15:45:59 Social History Question Answer Notes LastModified by Organizat ion Details LastModified Time Tobacco Smoking Status Former Smoker [facility] [place] 08/28/2022 10:39:25 Do You Have An Advance [...] anxious, or unable to sleep at night)? [id number] Information not available 08/28/2022 Family History Relationship [...] SNOMED-CT Code Diagnosis ICD10 Code Diagnosis Note [id number] Andres Valdez PA-C [facility] [address] [place], [place] [address] 01/29/2022 14:48:17 01/29/2022 15:22:38 Liver enzymes level above reference range 267701113 R74.01 Steatotic liver disease 401126949 K76.0 Fatigue 54533541 R53.83 Serum ferr itin above reference range 455771863 R77.8 [id number] Andres Valdez PA-C [facility] [place] [address] 08/28/2022 10:18:28 08/28/2022 11:15:55 Liver enzymes level above reference range 732929654 R74.01 Steatotic liver disease 183521509 K76.0 Fatigue 97089825 R53.83 Serum ferr itin above reference range 423101965 R77.8 [id number] Andres Valdez PA-C [facility] [place] [address] 09/20/2022 10:41:35 09/20/2022 11:19:07 Steatotic liver disease 837251948 K76.0 Serum ferr itin above reference range 469684325 R77.8 Metabolic dysfunction-associate d steatohepatitis 027905486 K75.81 Liver enzy mes level above reference range 335026697 R74.01 Fatigue 41802437 R53.83 [id number] Andres Valdez PA-C [facility] [place] [address] 11/13/2022 09:12:16 11/13/2022 10:27:35 Steatotic liver disease 737194554 K76.0 Serum ferr itin above reference range 708836710 R77.8 Metabolic dysfunction-associate d steatohepatitis 636596232 K75.81 Fatigue 81095410 R53.83 [id number] Andres Valdez PA-C [facility] [place] [address] 03/25/2023 10:05:21 03/25/2023 10:46:36 Steatotic liver disease 976692499 K76.0 Serum ferr itin above reference range 973861726 R77.8 Metabolic dysfunction-associate d steatohepatitis 633908994 K75.81 Fatigue 98144623 R53.83 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 Internatio nal normalized ratio above reference range 472125985 R79.1 [id number] Andres Valdez PA-C [facility] [address] [facility] [address] [place] [address] 09/23/2023 13:47:29 09/23/2023 15:05:12 Steatotic liver disease 189092749 K76.0 Serum ferr itin above reference range 328743810 R77.8 Metabolic dysfunction-associate d steatohepatitis 996577604 K75.81 Fatigue 32358977 R53.83 Carrier of hemochromatosis HFE gene mutation 111149530 Z14.8 Internatio nal normalized ratio above reference range 544800157 R79.1 [id number] Kimberly Meza PA-C [facility] [address] [place] [address] 10/09/2023 15:02:08 10/09/2023 15:49:31 Serum ferritin above reference range 149628734 R77.8 Records show patient has 1 copy of heterozygo us hemochroma tosis mutation but unable to find results in chart review.Lab s Gastroente rology on September 23, 2023 show white blood cell count 7.2 red blood cell count 5.11 hemoglobin 16.1 hematocrit 48.3 platelet count 402948. elevated ferritin 623. Discussed with patient ordering mutation test today. Discussed therapeuti c phlebotomi es weekly to maintain a goal of ferritin less than 50 due to patient's past medical history of fatty liver disease. Will follow-up on therapeuti c phlebotomi es. Steatotic liver disease 330347282 K76.0 Patient has a past medical history of fatty liver disease and is currently being followed with Gastroente rology. [id number] Kimberly Meza PA-C [facility] [address] [place] [address] 01/12/2024 13:22:26 01/12/2024 13:47:20 Serum ferritin above reference range 517037788 R77.8 Records show patient has 1 copy of heterozygo us hemochroma tosis mutation but unable to find results in chart review.Lab s Gastroente rology on September 23, 2023 show white blood cell count 7.2 red blood cell count 5.11 hemoglobin 16.1 hematocrit 48.3 platelet count 927410. elevated ferritin 623. Discussed with patient ordering mutation test today. Discussed therapeuti c phlebotomi es weekly to maintain a goal of ferritin less than 50 due to patient's past medical history of fatty liver disease. Will follow-up on therapeuti c phlebotomi es. Steatotic liver disease 840380535 K76.0 Patient has a past medical history of fatty liver disease and is currently being followed with Gastroente rology. Hereditary hemochromatosis 98371686 E83.110 Records show patient has 1 copy of heterozygo us hemochroma tosis mutation but unable to find results in chart review.Lab s Gastroente rology on September 23, 2023 show white blood cell count 7.2 red blood cell count 5.11 hemoglobin 16.1 hematocrit 48.3 platelet count 448453. elevated ferritin 623.Luis Eduardo de la cruz presents to clinic on January 12, 2024. Patient has been doing therapeuti c phlebotomi es over in [facility]. Patient tolerating them very well. Discussed ordering additional labs today will follow-up and likely continue with therapeuti c phlebotomi es when needed. [id number] Andres Valdez PA-C [facility] [address] [place] [address] 03/30/2024 15:28:56 03/30/2024 16:05:39 Steatotic liver disease 241282482 K76.0 Serum ferr itin above reference range 905494307 R77.8 Metabolic dysfunction-associate d steatohepatitis 466083638 K75.81 Carrier of hemochromatosis HFE gene mutation 974753118 Z14.8 [id number] Kimberly Meza PA-C [facility]-[address] [place] [address] 05/17/2024 13:16:53 05/17/2024 13:46:54 Hereditary hemochromatosis 86067523 E83.110 Records show patient has 1 copy of heterozygo us hemochroma tosis mutation but unable to find results in chart review.Lab s Gastroente rology on September 23, 2023 show white blood cell count 7.2 red blood cell count 5.11 hemoglobin 16.1 hematocrit 48.3 platelet count 932989. elevated ferritin 623.Luis Eduardo de la cruz presents to clinic on January 12, 2024. Patient has been doing therapeuti c phlebotomi es over in [facility]. Patient tolerating them very well. Discussed ordering additional labs today will follow-up and likely continue with therapeuti c phlebotomi es when needed. Patient presents to clinic on May 17, 2024. Patient has been having therapeuti c phlebotomi es performed. Will repeat labs to evaluate if continued phlebotomi es are needed at this time. Serum ferr itin above reference range 900261823 R77.8 Records show patient has 1 copy of heterozygo us hemochroma tosis mutation but unable to find results in chart review.Lab s Gastroente rology on September 23, 2023 show white blood cell count 7.2 red blood cell count 5.11 hemoglobin 16.1 hematocrit 48.3 platelet count 182539. elevated ferritin 623. Discussed with patient ordering mutation test today. Discussed therapeuti c phlebotomi es weekly to maintain a goal of ferritin less than 50 due to patient's past medical history of fatty liver disease. Will follow-up on therapeuti c phlebotomi es. Steatotic liver disease 056605683 K76.0 Patient has a past medical history of fatty liver disease and is currently being followed with Gastro[facility]log[facility]. [id number] Andres Valdez PA-C [facility] [address] [address] 09/28/2024 14:30:30 09/28/2024 15:27:19 Serum ferritin above reference range 742927365 R77.8 Carrier of hemochromatosis HFE gene mutation 184668925 Z14.8 Screening for malignant neoplasm of colon 869430108 Z12.11 -schedule first avg risks screening colonoscop y Metabolic dysfunction-associate d steatotic liver disease 0640856538 K76.0 F10.90 Health Concerns Section Related Observation LastModified by Organization Detai ls LastModified Time None Recorded Concern Status LastModified by Organization Details LastModified Time None Recorded Advance Directives Directive N: Payers Insurance Date Sequence Insurance Name Policy Number Policy Gramajo Covered Member ID Gramajo Member ID Guarantor Name 10/14/2024 1 [employer] () Tad De La Cruz Ewing [id number] Tad De La Cruz Ewing 05/18/[address] [facility] () Tad De La Cruz Ewing [id number] Tad Sarah Ewing 11/01/2023 1 *SELF PAY* La thao De La Cruz Ewing 05/17/2024 1 [employer] () Tad Sarah Ewing [id number] Tad De La Cruz Ewing Notes Date Note Type Note Provider Name and Address Organization Details Recorded Time 10/09/2023 text/html 48-year-old male presents to clinic [...] 5.11 hemoglobin 16.1 hematocrit 48.3 platelet count 523950. elevated ferritin 623. Discussed with patient ordering mutation test today. Discussed therapeutic phlebotomies weekly to maintain a goal of ferritin less than 50 due to patient's past medical history of fatty liver disease. Will follow-up on therapeutic phlebotomies. Kimberly Meza PA-C [address] [facility], [place], [address], [facility] - [place] - [place] & [place] 10/09/2023 16:03:36 01/12/2024 text/html 48-year-old male presents [...] 5.11 hemoglobin 16.1 hematocrit 48.3 platelet count 224803. elevated ferritin 623. Discussed with patient ordering mutation test today. Discussed therapeutic phlebotomies weekly to maintain a goal of ferritin less than 150 due to patient's past medical history of fatty liver disease. Will follow-up on therapeutic phlebotomies. Patient presents to clinic on January 12, 2024. Patient has been doing therapeutic phlebotomies over in [facility]. Patient tolerating them very well. Discussed ordering additional labs today will follow-up and likely continue with therapeutic phlebotomies when needed. Kimberly Meza PA-C [address], [place], [address], [facility] & [place] 01/12/2024 13:53:36 03/30/2024 text/html Mr. 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 Andres Valdez PA-C [address], [place], [phone], [facility] & [place] 03/30/2024 16:37:50 05/17/2024 text/html 49-year-old male presents [...] 5.11 hemoglobin 16.1 hematocrit 48.3 platelet count [id number]. elevated ferritin 623. Discussed with patient ordering mutation test today. Discussed therapeutic phlebotomies weekly to maintain a goal of ferritin less than 150 due to patient's past medical history of fatty liver disease. Will follow-up on therapeutic phlebotomies. Patient presents to clinic on January 12, 2024. Patient has been doing therapeutic phlebotomies over in [facility]. Patient tolerating them very well. Discussed ordering additional labs today will follow-up and likely continue with therapeutic phlebotomies when needed. Patient presents to clinic on May 17, 2024. Patient has been having therapeutic phlebotomies performed. Will repeat labs to evaluate if continued phlebotomies are needed at this time. Kimberly Meza PA-C [address], [place], [phone], [facility] & [place] 05/17/2024 13:51:29 09/28/2024 text/html Mr. Gildardo combs nts to the office today for follow-up regarding [...] a family history of colorectal cancer. Andres Valdez PA-C [address], [place], [phone], [facility] & [place] 09/28/2024 19:38:55
--- NOTE | 2024-10-22 15:30 | CT_ITS ---
FINAL REPORT TECHNIQUE: Axial CT images of the chest were obtained without contrast. Low-dose protocol was utilized. This study was performed with techniques to keep radiation doses as low as reasonably achievable (ALARA). Individualized dose reduction techniques using automated exposure control or adjustment of mA and/or kV according to the patient's size were employed. CLINICAL HISTORY: Lung cancer screening Former smoker quit 8 years ago 1 ppd x30 years when smoking COMPARISON: None FINDINGS: CT CHEST WITHOUT, LOW DOSE SCREENING CTDl vol(mGy): 2.90 DLP (mGy-cm): 108.64 Former smoker 30 pack year history There is no axillary adenopathy. There is no hilar or mediastinal adenopathy. The heart size is normal. There is no pericardial or pleural effusion. Lung window images demonstrate no suspicious infiltrate or nodule. Limited images of the upper abdomen demonstrate fatty infiltration of the liver. IMPRESSION: Lung RADS category 1. Recommend 12 month follow-up low-dose chest CT per Fleischner criteria. Reviewed, Interpreted and Dictated by Kady Solomon MD Transcribed by Nhung Mitchell Authenticated and [facility]
== END 2024-10-22 23:59 | disposition home or self-care (01) ==
LOC: RAD 15:24
PROVIDERS: PCP Nurse Practitioner Family; Visit Provider Internal Medicine
DX: F17.209 Nicotine dependence, unspecified, with unspecified nicotine-induced disorders (principal); Z12.2 Encounter for screening for malignant neoplasm of respiratory organs
CPT/HCPCS: 71271

== ENCOUNTER 2025-04-09 16:57 | Emergency (ER) | payer OTHER, SELFPAY ==
--- NOTE | 2025-04-09 17:05 | XR_ITS ---
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 Views: Minimum 2 views. COMPARISON: US EXTREMITY LT LIMITED 02/13/2023 1:27 PM FINDINGS: Bones/joints: Pinpoint radiopaque foreign bodies at the dorsal aspect of the thumb IP joint. Soft tissues: Moderate left thumb soft tissue swelling without acute osseous abnormality. IMPRESSION: 1. Moderate left thumb soft tissue swelling without acute osseous abnormality. 2. Pinpoint radiopaque foreign bodies at the dorsal aspect of the thumb IP joint soft tissues.
[2025-04-09 17:06] VITALS: BP 163/124; PULSE 105; RESP 16; TEMP 36.4; O2SAT 95; BMI 29.0
--- NOTE | 2025-04-09 17:07 | ED_ITS ---
Discharge Plan Disposition Patient Disposition: Xfer Other Prescriptions Prescriptions: No Action cyclobenzaprine 10 mg tablet See Rx Instructions .ROUTE .COMPLEX Qty: 30 11RF Dose Instruction: TAKE ONE TABLET BY MOUTH EVERY DAY AT BEDTIME NEEDED FOR MUSCLE SPASMS Rx Instructions: TAKE ONE TABLET BY MOUTH EVERY DAY AT BEDTIME NEEDED FOR MUSCLE SPASMS diclofenac sodium 75 mg tablet,delayed release (DR/EC) See Rx Instructions .ROUTE .COMPLEX Qty: 60 11RF Dose Instruction: TAKE ONE TABLET BY MOUTH TWICE DAILY Rx Instructions: TAKE ONE TABLET BY MOUTH TWICE DAILY sertraline 50 mg tablet See Rx Instructions .ROUTE .COMPLEX Qty: 90 3RF Dose Instruction: TAKE ONE TABLET BY MOUTH EVERY DAY Rx Instructions: TAKE ONE TABLET BY MOUTH EVERY DAY semaglutide (weight loss) 1.7 mg/0.75 mL pen injector 1.7 mg SQ WEEKLY Qty: 3 0RF Rx Instructions: administer weeks 13 through 16 of therapy Referrals Follow up/Referrals: Katy Maldonado APRN [Primary Care Provider, Medical] - See instructions Clinical Impressions Clinical Impression: Extensor tendon disruption, Laceration of left thumb Stand Alone Forms Stand Alone Forms: Transfer Record - ED Instructions Patient Instructions: DI for Laceration Repair Print Language Print Language: Ethiopian Discharge ED Provider: Frederick Torres General Adult HPI <June Robb (ED), TASHA - Last Filed: 04/09/25 18:25> General Chief complaint: Wound/Laceration Stated complaint: bleeding and cuts on left hand from stopper grinder Time Seen by Provider: 04/09/25 17:05 History of Present Illness HPI narrative: 50-year-old male presents to the ED today after cutting his left thumb on a stopper grinder prior to arrival. It is bleeding some. Patient is not up-to-date on tetanus. Patient cannot move his thumb well. Related Data Previous Rx's ?Medication ?Instructions ?Recorded cyclobenzaprine 10 mg tablet See Rx Instructions .Rout e 07/05/24 .COMPLEX #30 tabs diclofenac sodium 75 mg See Rx Instructions .Route 0 12/28/24 tablet,delayed release .COMPLEX #60 tabs sertraline 50 mg tablet See Rx Instructions .Route 0 01/11/25 .COMPLEX #90 tabs semaglutide (weight loss) 1.7 1.7 mg (0.75 mL) SQ WEEK LY #3 mL 03/28/25 mg/0.75 mL subcutaneous pen injector Allergies Allergy/AdvReac Type Severity Reaction Status Date / Time No Known Allergies Allergy Verified 12/10/24 15:22 PFSH <June Robb (ED), CHIEF CLOTH FINISHING RANGE OPERATOR - Last Filed: 04/09/25 18:25> PFS Disclaimer: The information contained in this section may have been updated after the patient was seen, as this information can be updated by other users. Medical History Hereditary hemochromatosis Folliculitis barbae Candidal dermatitis Muscle spasm Fatty liver Arthritis Acute viral syndrome Bronchitis Sinusitis Laceration of left leg excluding thigh Surgical History History of hernia repair S/P scrotal varicocelectomy H/O vasectomy Family History Father Cancer prostate Mother CHF (congestive heart failure) Other Family history of diabetes mellitus type I Family history of diabetes mellitus type II Social History Smoking Status: Current every day smoker years smoked: 30 alcohol intake: current alcohol intake frequency: a few times a week substance use type: denies use current occupational status: employed Travel in the last 8 weeks?: None Have you lived/traveled outside US in past 30 days?: No Contact w/someone who lives/traveled outside US past 30 days?: No Exposure to someone with infectious disease in past 14 days?: No Do you have a fever (greater than 100.4 F or 38 C)?: No Have you tested positive for COVID-19?: No Exposed to someone with COVID-19 in past 14 days?: No Do you have a sore throat?: No Do you have a cough?: No Do you have any weakness?: No Do you have any diarrhea?: No Are you experiencing any unusual bleeding?: No Do you have any muscle aches/pain?: No Do you have any abdominal pain?: No Are you experiencing loss of taste or smell?: No Other Medical History Have you received the Flu Vaccine for this season: Yes Have you received the Pneumonia Vaccine: No <June Robb (ED), CHIEF CLOTH FINISHING RANGE OPERATOR - Last Filed: 04/09/25 18:25> ROS Obtained: Yes Systems reviewed as appropriate & no additional complaints e xcept as documented Constitutional Constitutional: Reports as per HPI Physical Exam <June Robb (ED), CHIEF CLOTH FINISHING RANGE OPERATOR - Last Filed: 04/09/25 18:25> General General appearance: alert and in distress Head Head exam: normocephalic Eye Eye exam: Present PERRL and EOMI ENT ENT exam: Present mucous membranes moist Respiratory Respiratory exam: Present normal lung sounds bilaterally Cardiovascular Cardiovascular exam: Present regular rate, +S1 and +S2 Extremities Exam Extremities exam: Present other (Laceration to left thumb minimal range of motion laceration is on the dorsal side of the thumb) Neurological Exam Neurological exam: Present alert and oriented X3 Psychiatric Psychiatric exam: Present normal mood Skin Skin exam: Present warm, dry and other (Laceration on the dorsal side of the thumb) Medical Decision Making <June Robb (ED), CHIEF CLOTH FINISHING RANGE OPERATOR - Last Filed: 04/09/25 18:25> Medical Records Screening: Per USPSTF and CDC recommendations, given the prevalence of disease in our region, it is our hospital?s policy to screen for HIV and viral Hepatitis for all patients aged 18 and over and those with ongoing risk factors. Balwinder Inquiry Pt receiving controlled substance: No Balwinder was queried for this patient: No Vital Signs: 04/09/25 17:06 04/09/25 18:08 Temperature 97.6 F Temperature Source Oral Pulse Rate 89 Pulse Rate [Right Brachial] 105 H Respiratory Rate 16 18 Blood Pressure 116/77 Blood Pressure [Right Arm] 163/124 H Blood Pressure Mean 85 Blood Pressure Mean [Right Arm] 137 Blood Pressure Source [Right Arm] Automatic Cuff Blood Pressure Position [Right Arm] Sitting 02 Sat by Pulse Oximetry 95 95 Oxygen Delivery Method Room Air Orders (Tests/Meds): ED MEDICATIONS Discontinued Medications Generic Name Dose Route Start Last Admin Trade Name Freq PRN Reason Stop Dose Admin Lidocaine/Epinephrine 20 ml 04/09/25 17:35 04/09/25 18:28 Lidocaine 1% W/Epi 1:100,000 20ml Vial SQ 04/09/25 17:36 Not Given ONCE ONE Morphine Sulfate 4 mg 04/09/25 17:05 04/09/25 17:33 Morphine 4mg/Ml Syringe IV 04/09/25 17:06 4 mg ONCE ONE Administration Ondansetron HCl 4 mg 04/09/25 17:05 04/09/25 17:33 Ondansetron 4mg/2ml Vial IV 04/09/25 17:06 4 mg ONCE ONE Administration Tetanus/Reduced Diphtheria/Acell Pertussis 0.5 ml 04/09/25 17:05 04/09/25 17:33 Tet/Diphth/Pert-Adult 0.5ml Syringe IM 04/09/25 17:06 0.5 ml .ONCE ONE Administration ORDERS Category Date Time Status Finger XR left minimum 2 views [XR finger LT min 2V] Exams 04/09/25 17:05 Completed Stat Medical Decision Narrative: patient is a 50-year-old male presenting to the emergency department for evaluation of laceration of dorsal side of the left hand. Patient is hemodynamically stable and nontoxic-appearing upon arrival, afebrile. Differential diagnosis includes laceration, open fracture. Workup will be conducted with specific imaging. Initial inventions include analgesics Imaging informally interpreted by me and remarkable for nothing acute. I talked to Dr. Soler at about patient's extensor tendon injury. He is unable to extend his thumb. So there is probable injury to that extensor tendon. He wants patient to be sent to [place] [facility]. Patient agrees to go by POV. Patient safe for discharge. I did put a dressing on the wound. <Frederick Torres MD - Last Filed: 04/09/25 18:35> Vital Signs: 04/09/25 17:06 04/09/25 18:08 Temperature 97.6 F Temperature Source Oral Pulse Rate 89 Pulse Rate [Right Brachial] 105 H Respiratory Rate 16 18 Blood Pressure 116/77 Blood Pressure [Right Arm] 163/124 H Blood Pressure Mean 85 Blood Pressure Mean [Right Arm] 137 Blood Pressure Source [Right Arm] Automatic Cuff Blood Pressure Position [Right Arm] Sitting 02 Sat by Pulse Oximetry 95 95 Oxygen Delivery Method Room Air Orders (Tests/Meds): ED MEDICATIONS Discontinued Medications Generic Name Dose Route Start Last Admin Trade Name Freq PRN Reason Stop Dose Admin Lidocaine/Epinephrine 20 ml 04/09/25 17:35 04/09/25 18:28 Lidocaine 1% W/Epi 1:100,000 20ml Vial SQ 04/09/25 17:36 Not Given ONCE ONE Morphine Sulfate 4 mg 04/09/25 17:05 04/09/25 17:33 Morphine 4mg/Ml Syringe IV 04/09/25 17:06 4 mg ONCE ONE Administration Ondansetron HCl 4 mg 04/09/25 17:05 04/09/25 17:33 Ondansetron 4mg/2ml Vial IV 04/09/25 17:06 4 mg ONCE ONE Administration Tetanus/Reduced Diphtheria/Acell Pertussis 0.5 ml 04/09/25 17:05 04/09/25 17:33 Tet/Diphth/Pert-Adult 0.5ml Syringe IM 04/09/25 17:06 0.5 ml .ONCE ONE Administration ORDERS Category Date Time Status Finger XR left minimum 2 views [XR finger LT min 2V] Exams 04/09/25 17:05 Completed Stat Medical Decision Narrative: patient is a 50-year-old male presenting to the emergency department for evaluation of laceration of dorsal side of the left hand. Patient is hemodynamically stable and nontoxic-appearing upon arrival, afebrile. Differential diagnosis includes laceration, open fracture. Workup will be conducted with specific imaging. Initial inventions include analgesics Imaging informally interpreted by me and remarkable for nothing acute. I talked to Dr. Soler at about patient's extensor tendon injury. He is unable to extend his thumb. So there is probable injury to that extensor tendon. He wants patient to be sent to [place] ER. Patient agrees to go by POV. Patient safe for transfer. I did put a dressing on the wound. Frederick Torres MD: I was consulted by the MYKEL, and we discussed the complexity of the problems being addressed. I approve the treatment and management plan for this patient's care in the emergency department, thus performing a substantive portion of the medical decision making. Critical Care <June Robb (ED), CHIEF CLOTH FINISHING RANGE OPERATOR - Last Filed: 04/09/25 18:25> Critical Care Time Critical Care Time: No
[2025-04-09] MEDS: MORPHINE 4MG/ML SYRINGE 4 MG IV (17:33)
[2025-04-09] MEDS: ONDANSETRON 4MG/2ML VIAL 4 MG IV (17:33)
[2025-04-09] MEDS: TET/DIPHTH/PERT-ADULT 0.5ML SYRINGE 0.5 ML IM (17:33)
[2025-04-09 18:08] VITALS: BP 116/77; PULSE 89; RESP 18; O2SAT 95
[2025-04-09 18:45] VITALS: BP 154/107; PULSE 93; RESP 16; TEMP 36.6; O2SAT 97
== END 2025-04-09 18:48 | disposition other institution (70) ==
PROVIDERS: Emergency Provider Student in an Organized Health Care Education/Training Program; PCP Nurse Practitioner Family
DX: S66.202A Unspecified injury of extensor muscle, fascia and tendon of left thumb at wrist and hand level, initial encounter (principal); S61.002A Unspecified open wound of left thumb without damage to nail, initial encounter; W31.1XXA Contact with metalworking machines, initial encounter
CPT/HCPCS: 73140; 90471; 90715; 96374; 96375; 99285; J2004; J2270; J2405